=== PATIENT | female | born 1975 | race Caucasian/White ===

== ENCOUNTER 2016-04-11 14:37 | Inpatient (IN) | payer MEDICAID, OTHER ==
[~2016-04-11] VITALS: Ht 160 cm; Wt 74.5 kg
[~2016-04-11 14:37] MED LIST: LORA-407
[2016-04-11] MEDS ORDERED: AMOX1TAB10 PO (15:05)
[2016-04-11] MEDS ORDERED: OXYC-279 PO (15:07)
[2016-04-11] MEDS ORDERED: ALBUTEROL 0.5% (NEB) 2.5 MG/0.5 ML AMP INH STA (15:29)
[2016-04-11] MEDS ORDERED: SOD CHLORIDE 0.9% 500 ML IV STA (15:29)
[2016-04-11] MEDS ORDERED: IPRATROPIUM (NEB) 0.5 MG/2.5 ML AMP INH STA (15:29)
[2016-04-11] MEDS ORDERED: predniSONE 20 MG TAB PO ONE (15:30)
[2016-04-11 16:00] LABS: BASOPHILS % 0.5 % (0.0-2.0); EOSINOPHILS # 0.2 10^3/ul (0.0-0.5); EOSINOPHILS % 2.3 % (0.0-7.0); HEMATOCRIT 40.1 % (37.0-47.0); HEMOGLOBIN 13.6 g/dl (12.0-16.0); LYMPHOCYTES # 1.2 10^3/ul (0.8-2.9); LYMPHOCYTES % 17.9 % (15.0-51.0); MEAN CORPUSCULAR HEMOGLOBIN 30.7 pg (29.0-33.0); MEAN CORPUSCULAR HGB CONC 33.9 g/dl (32.0-37.0); MEAN CORPUSCULAR VOLUME 90.7 fl (82.0-101.0); MEAN PLATELET VOLUME 8.2 fl (7.4-10.4); MONOCYTE # 0.8 10^3/ul (0.3-0.9); NEUTROPHIL # 4.7 10^3/ul (1.6-7.5); NEUTROPHILS % 68.3 % (39.0-77.0); PLATELET COUNT 290 10^3/UL (140-440); RED BLOOD COUNT 4.42 10^6/ul (4.20-5.40); RED CELL DISTRIBUTION WIDTH 17.3 % (11.5-14.5); UNCORRECTED WBC 6.9 10^3/ul (4.8-10.8); WHITE BLOOD COUNT 6.9 10^3/ul (4.8-10.8)
[2016-04-11] MEDS ORDERED: LIDOCAINE 1% (MDV) 20 ML INJ SC ONE (16:00)
--- NOTE | 2016-04-11 16:04 | RADRPT ---
PROCEDURE: XR Chest. CLINICAL INDICATION: Abdominal pain. TECHNIQUE: AP view of the chest was obtained. COMPARISON: 03/11/2014 FINDINGS: The cardiomediastinal silhouette is within normal limits. There has been interval development of pat hola infiltrates involving the right lower lobe suggestive of pneumonia. There is linear infiltrates involving the left lower lobe, which are nonspecific. No signs of pleural fluid or pneumothorax are seen. The osseous structures and soft tissues are unremarkable. IMPRESSION: 1. Patchy infiltrates in the right lower lobe suggestive of pneumonia. 2. Linear infiltrates involving the left lower lobe which may be related to atelectasis versus pneu monia. RPTAT: DD .Ted Fitzgerald MD, Date Time Electronically viewed and signed by .Ted Fitzgerald MD, on 04/11/2016 16:03 .S/
[2016-04-11 16:07] LABS: ALBUMIN 4.5 g/dl (3.3-4.9)
[2016-04-11 16:08] LABS: CHLORIDE 98 mmol/L (97-110); CONDITION 1; INR 0.93; LH ANALYZER COMMENTS 1; POTASSIUM 4.3 mmol/L (3.5-5.1); PROTIME 12.5 Sec (12.2-14.2); SODIUM 140 mmol/L (135-144)
[2016-04-11 16:10] LABS: BILIRUBIN,INDIRECT 0.3 mg/dl (0-1.1); BILIRUBIN,TOTAL 0.3 mg/dl (0.2-1.3); CREATININE 0.73 mg/dl (0.44-1.00)
[2016-04-11 16:11] LABS: ALANINE AMINOTRANSFERASE 62 IU/L (13-69); ALBUMIN/GLOBULIN RATIO 1.09; ALKALINE PHOSPHATASE 160 IU/L (42-121); ANION GAP 19 (8-16); BLOOD UREA NITROGEN 14 mg/dl (7-20); CALCIUM 9.4 mg/dl (8.4-10.2); CARBON DIOXIDE 27 mmol/L (21-31); GLUCOSE 92 mg/dl (70-220); TOTAL PROTEIN 8.6 g/dl (6.1-8.1)
[2016-04-11 16:21] VITALS: TEMP 98.3
[2016-04-11 16:44] LABS: TROPONIN-I < 0.012 ng/ml (0.00-0.12)
[2016-04-11] MEDS ORDERED: LEVOFLOXACIN 750MG/D5W (PMX) 150 ML IVPB ONE (17:00)
[2016-04-11 17:03] LABS: ASPARTATE AMINO TRANSFERASE 65 IU/L (15-46)
--- NOTE | 2016-04-11 18:24 | ERA ---
ER Documentation Chief Complaint Date/Time DATE: 04/11/16 TIME: 18:17 Chief Complaint trouble breathing and wheezing for the past few days. chemo pt HPI 40-year-old woman presents with continued shortness of breath and wheezing. She has a history of metastatic breast cancer as well as asthma and she states she has been using her albuterol pump recently without relief. She was seen and evaluated at another nearby hospital about 3-4 days ago for the same symptoms and a CT angiogram of the chest was performed ruling out pulmonary embolism although a pleural effusion was noted. She has had no fevers or chills , no calf or leg swelling, no vomiting or diarrhea, no headache or blurry vision. ROS All systems reviewed and are negative except as per history of present illness. Medications Home Meds Reported Medications Oxycodone HCl/Acetaminophen (Percocet 5-325 mg Tablet) 1 Each Tablet, 1-2 TAB PO Q6 Y for PAIN, TAB 04/11/16 Amoxicillin/Potassium Clav (Amox-Clav 875-125 mg Tablet) 875-125 mg Tab, 1 TAB PO BID, #20 TAB started 04-09-16 for 7 days 04/11/16 Discontinued Reported Medications Loratadine (Claritin) 10 Mg Tablet 06/12/10 Allergies Allergies: Coded Allergies: No Known Allergy (Unverified , 04/11/16) PMhx/Soc Metastatic breast cancer post mastectomy History of Surgery: Yes (LEFT BREAST REMOVAL-CA) Anesthesia Reaction: No Hx 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 Disorder: No Hx Respiratory Disorders: Yes (ASTHMA) Hx Cardiac Disorders: No Hx Psychiatric Problems: No Hx Miscellaneous Medical Probl: No Hx Alcohol Use: No Hx Substance Use: No Hx Tobacco Use: No FmHx Family History: No diabetes Physical Exam Vitals Vital Signs Date Time Temp Pulse Resp B/P Pulse Ox O2 Delivery O2 Flow Rate FiO2 04/11/16 16:21 98.3 112 20 128/78 100 Room Air 04/11/16 15:50 Nasal Cannula 04/11/16 15:35 102 20 96 21 04/11/16 14:45 98.1 103 20 159/71 98 Physical Exam GENERAL: Well-developed, well-nourished, well-hydrated, in no apparent distress , looks nontoxic in appearance, afebrile HEENT: Moist mucous membranes, pink conjunctiva, no cervical spine tenderness or step-off deformities, no goiter, no jaundice or icterus, extraocular movements intact without pain. No submandibular induration, and no pharyngeal erythema NEURO: Alert and oriented 3, cranial nerves II through XII intact bilaterally, pupils equal round reactive to light, no focal deficits or facial asymmetry, sensation intact distally Strength 5/5 in upper and lower extremities bilaterally CARDIAC: Regular rate and rhythm, no murmurs rubs or gallops LUNGS: Poor entry bilaterally with bibasilar crackles and wheezing, no stridor ABDOMEN: Soft nontender, no guarding, no rigidity, no rebound, no psoas sign no obturator sign. Normoactive bowel sounds SKIN: Warm and dry to touch, chronic thickened erythematous skin to the anterior chest, no target lesions, and without ulcers EXTREMITIES: No clubbing cyanosis or edema, calves are bilaterally symmetrical, no Homans sign, no popliteal cord sign. Distal pulses equal and bilateral PSYCH: Normal affect without agitation or irritability Result Diagram: 04/11/16 1550 04/11/16 1550 Results 24 hrs Laboratory Tests Test 04/11/16 15:50 Alanine Aminotransferase (ALT/SGPT) 62IU/L Albumin 4.5g/dl Albumin/Globulin Ratio 1.09 Alkaline Phosphatase 160IU/L Anion Gap 19 Aspartate Amino Transf (AST/SGOT) 65IU/L Basophils # 0.010^3/ul Basophils % 0.5% Blood Morphology Comment Blood Urea Nitrogen 14mg/dl Calcium Level 9.4mg/dl Carbon Dioxide Level 27mmol/L Chloride Level 98mmol/L Creatinine 0.73mg/dl Direct Bilirubin 0.00mg/dl Eosinophils # 0.210^3/ul Eosinophils % 2.3% Globulin 4.10g/dl Glucose Level 92mg/dl Hematocrit 40.1% Hemoglobin 13.6g/dl INR International Normalized Ratio 0.93 Indirect Bilirubin 0.3mg/dl Lipase 95U/L Lymphocytes # 1.210^3/ul Lymphocytes % 17.9% Mean Corpuscular Hemoglobin 30.7pg Mean Corpuscular Hemoglobin Concent 33.9g/dl Mean Corpuscular Volume 90.7fl Mean Platelet Volume 8.2fl Monocytes # 0.810^3/ul Monocytes % 11.0% Neutrophils # 4.710^3/ul Neutrophils % 68.3% Nucleated Red Blood Cells # 0.010^3/ul Nucleated Red Blood Cells % 0.0/100WBC Platelet Count 73204^3/UL Potassium Level 4.3mmol/L Prothrombin Time 12.5Sec Prothrombin Time Ratio 1.0 Red Blood Count 4.4210^6/ul Red Cell Distribution Width 17.3% Sodium Level 140mmol/L Total Bilirubin 0.3mg/dl Total Protein 8.6g/dl Troponin I < 0.012ng/ml White Blood Count 6.910^3/ul Current Medications Medications (Trade) Dose Ordered Sig/Rosaline Route PRN Reason Start Time Stop Time Status Last Admin Dose Admin Sodium Chloride (NS) 500 ml @ 500 mls/hr Q1H STAT IV 04/11/16 15:29 04/11/16 17:32 DC 04/11/16 17:51 Albuterol (Proventil 0.5% (Neb)) 10 mg ONCE STAT INH 04/11/16 15:29 04/11/16 17:32 DC 04/11/16 15:35 Ipratropium [place] (Atrovent 0.02% (Neb)) 1 mg ONCE STAT INH 04/11/16 15:29 04/11/16 17:32 DC 04/11/16 15:35 Prednisone (Prednisone) 40 mg ONCE ONCE PO 04/11/16 15:30 04/11/16 17:32 DC 04/11/16 15:47 Lidocaine (Xylocaine 1% (Mdv) 20 ml) 20 ml ONCE ONCE SC 04/11/16 16:00 04/11/16 17:32 DC Procedures/MDM IV line was established patient was placed on mortgage loan specialist rhythm strip revealed a sinus rhythm at about 80 bpm with upright P and T waves. Patient was afebrile. I administered 500 cc of normal saline intravenously, prednisone 40 mg p.o., albuterol 10 mg via nebulizer, and ipratropium 1 mg via nebulizer. One view chest x-ray performed, read by me there is bilateral pleural effusions worse on the right compared to the left there may be a new infiltrate on the right EKG performed, read by me: 80 bpm, normal sinus rhythm, normal axis, no acute ST segment changes, narrow QRS complex, with good R-wave progression in precordial leads. CBC and electrolytes were unremarkable, liver function tests were normal, troponin was negative. I spoke to the patient's change management director oncologist Dr. Chau regarding the patient 's presentation and symptomatology. She would like to begin inpatient management and chemotherapy and given her recurrent shortness of breath recommended admission. Patient was admitted to the hospitalist. Departure Diagnosis: Primary Impression: Shortness of breath Additional Impressions: Asthma Qualified Code: J45.42 - Moderate persistent asthma with status asthmaticus Metastatic breast cancer Pleural effusion Condition: RAMIRO Mosley MD Apr 11, 2016 18:24
[2016-04-11] MEDS ORDERED: ZOLPIDEM 5 MG TAB PO PRN (18:30)
[2016-04-11] MEDS ORDERED: morphine 2 MG INJ IV PRN (18:30)
[2016-04-11] MEDS ORDERED: ACETAMINOPHEN 325 MG TAB PO PRN (18:30)
[2016-04-11] MEDS ORDERED: ONDANSETRON 4 MG INJ IV PRN (18:30)
[2016-04-11] MEDS ORDERED: DOCUSATE SODIUM 100 MG CAP PO PRN (18:30)
[2016-04-11] MEDS ORDERED: NACL 0.9% 3 ML SYG IV SCH (18:30)
--- NOTE | 2016-04-11 18:45 | HP ---
DATE OF ADMISSION: 04/11/2016 CHIEF COMPLAINT: Shortness of breath. HISTORY OF PRESENT ILLNESS: The patient is a 40-year-old female with a history of breast cancer on the left breast 7 years ago, she is status post mastectomy with chemo. The patient then developed b reast cancer on the right breast status post chemotherapy. The patient follows with Dr. Chau. She presents with 3 days of worsening shortness of breath. She denies any acute chest pain but states that she has very typical chest pain from her breast cancer. The patient also reports a history of asthma, has no other medical issues and has no other complaints at this time. PAST MEDICAL HISTORY: Breast cancer in both the left and right breasts, status post mastectomy in t he left breast as well as chemotherapy and chemotherapy for her right breast which was diagnosed 3 y ears ago. The patient follows with Dr. Chau. The patient reports no other surgeries. She also mcdonough s a history of asthma. HOME MEDICATIONS: Percocet. ALLERGIES: NO KNOWN DRUG ALLERGIES. FAMILY HISTORY: Denies any history of cancer or heart problems. SOCIAL HISTORY: Denies alcohol, tobacco, or drug abuse. REVIEW OF SYSTEMS: A 12-point review of systems negative except that in the HPI. PHYSICAL EXAMINATION: VITAL SIGNS: Temperature is 98.3, pulse 112, respiratory rate 20, blood pressure 128/78, saturation 100% on room air. GENERAL: No acute distress, alert and oriented. HEENT: Normocephalic, atraumatic. LUNGS: Clear to auscultation. CARDIOVASCULAR: Regular rate and rhythm. ABDOMEN: Nondistended, nontender, soft. EXTREMITIES: No clubbing, cyanosis, or edema. LABORATORIES: CBC within normal limits. Chemistry within normal limits except for AST slightly aj vated at 65, alkaline phosphatase 160. INR is 0.938. DIAGNOSTICS: Chest x-ray shows patchy infiltrates in the right lower lobe suggestive of pneumonia, linear infiltrates involving the left lower lobe which may be related to atelectasis versus pneumoni a. ASSESSMENT AND PLAN: 1. Acute respiratory distress secondary to pulmonary edema likely from underlying right-sided breas t cancer. Dr. Chau of oncology is aware. The patient will be getting a thoracentesis and will be started on chemotherapy. We will continue with supplemental oxygen. 2. Chronic obstructive pulmonary disease. We will treat with breathing treatments. 3. Prophylaxis: Lovenox. Dictated By: ESHA WILKINSON/NTS Conf#: [id number] DID#: [id number]
[2016-04-11 19:00] VITALS: BP 130/80; RESP 18
[2016-04-11 19:13] VITALS: BP 162/66; PULSE 117; RESP 24
--- NOTE | 2016-04-11 20:25 | RADRPT ---
PROCEDURE: XR Chest AP portable CLINICAL INDICATION: PICC line placement TECHNIQUE: An AP portable radiograph of the chest was submitted. COMPARISON: Study done earlier on the same date FINDINGS: Support Hardware: A right upper extremity PICC catheter has been placed since the previous study but the catheter is directed superiorly beyond the limits of the film within the right internal jugular vein and should be repositioned. Cardiovascular: The cardiovascular silhouette appears unremarkable. Lung Carrion: Streaky infiltrate or subsegmental atelectasis is again seen at the right lung base. A suboptimal inspiration again compresses lung parenchyma but there is slightly improved than with th e interstitial prominence extending from the perihilar regions. Pleural Spaces: No pneumothorax or pleural effusion is identified. Osseous Structures: The osseous structures appear intact. Soft Tissues: The soft tissues appear unremarkable. IMPRESSION: 1. Since the previous study, a right upper extremity PICC catheter is in place but the tip is direc gabby superiorly beyond the image within the right internal jugular vein and should be repositioned as soon as possible. 2. Subsegmental atelectasis or streaky infiltrate again seen at the right lung base with the more d iffuse interstitial infiltrates improved from the previous. Physician Dario Date Time Electronically viewed and signed by Physician Dario on 04/11/2016 20:25 RH/
--- NOTE | 2016-04-11 20:28 | RADRPT ---
PROCEDURE: XR Chest AP portable CLINICAL INDICATION: PICC line placement TECHNIQUE: An AP portable radiograph of the chest was submitted. COMPARISON: Comparison study done earlier on the same date FINDINGS: Support Hardware: The right upper extremity PICC catheter has been repositioned and the tip projects to the inferior vena cava. Cardiovascular: The heart size remains normal. Lung Carrion: Again a suboptimal inspiration compresses lung parenchyma giving the suggestion of wors ening bilateral infiltrates. Pleural Spaces: No pneumothorax or pleural effusion is identified. Osseous Structures: The osseous structures appear intact. Soft Tissues: The soft tissues appear unremarkable. IMPRESSION: 1. Repositioning the right upper extremity PICC catheter with the tip now appears to extend inferio rly into these inferior vena cava. 2. The heart size remains normal 3. Worsening pulmonary infiltrates. Physician Dario Date Time Electronically viewed and signed by Gold Frederick Physician on 04/11/2016 20:27 /
--- NOTE | 2016-04-11 20:30 | RADRPT ---
PROCEDURE: XR Chest AP portable CLINICAL INDICATION: PICC placement TECHNIQUE: An AP portable radiograph of the chest was submitted. COMPARISON: As stated earlier on the same date FINDINGS: Support Hardware: The right upper extremity PICC catheter has been withdrawn into the inferior aspec t of the right atrium. Cardiovascular: The heart size remains normal and the pulmonary vasculature is upper normal. Lung Carrion: Diffuse largely interstitial infiltrates are again evident and there diminish secondary to much more penetrated technique. Pleural Spaces: No pneumothorax or pleural effusion is identified. Osseous Structures: The osseous structures appear intact. Soft Tissues: The soft tissues appear unremarkable. IMPRESSION: 1. The right upper extremity PICC catheter has been withdrawn slightly with the tip now lying at th e inferior right atrium. 2. Persistent bilateral fairly diffuse interstitial infiltrates. Physician Dario Date Time Electronically viewed and signed by Gold Frederick Physician on 04/11/2016 20:29 /
--- NOTE | 2016-04-11 20:31 | RADRPT ---
PROCEDURE: XR Chest AP portable CLINICAL INDICATION: PICC line placement TECHNIQUE: An AP portable radiograph of the chest was submitted. COMPARISON: As stated earlier on the same date FINDINGS: Support Hardware: The right upper extremity PICC catheter remains malpositioned directed superiorly into the right jugular vein. Cardiovascular: The heart size remains normal. Lung Horton: Interstitial infiltrates are again seen through the lung horton with atelectatic change seen at the right lung base. Pleural Spaces: No pneumothorax or pleural effusion is identified. Osseous Structures: The osseous structures appear intact. Soft Tissues: Air distended colon is seen in the abdomen. IMPRESSION: 1. The right upper extremity PICC catheter tip remains malpositioned superiorly into the right jugu lar vein. 2. Persistent bilateral pulmonary interstitial infiltrates with subsegmental atelectasis again seen at the right lung base. Physician Dario Date Time Electronically viewed and signed by Physician Dario on 04/11/2016 20:31 /
--- NOTE | 2016-04-11 20:34 | RADRPT ---
PROCEDURE: US Chest Bilateral CLINICAL INDICATION: PICC line placement TECHNIQUE: 2 images were submitted during real time examination during PICC line placement. COMPARISON: None FINDINGS: Images were used as a guide during placement of PICC line. IMPRESSION: Real time sonography was used to aid in PICC line catheter placement. Physician Dario Date Time Electronically viewed and signed by Gold Frederick Physician on 04/11/2016 20:33 RH/
[2016-04-11 21:30] VITALS: Ht 160 cm; Wt 74.5 kg
--- NOTE | 2016-04-11 23:04 | RADRPT ---
PROCEDURE: US Chest. CLINICAL INDICATION: Shortness of breath. TECHNIQUE: Ultrasound of both sides of the chest was performed in the axial and sagittal planes. COMPARISON: Chest radiograph done earlier the same day FINDINGS: There is no pleural effusion on either side. IMPRESSION: 1. No pleural effusion on either side. RPTAT: QQ .Ranjith Reece MD, MD Date Time Electronically viewed and signed by .Ranjith Reece MD, MD on 04/11/2016 23:03 .R/
[2016-04-11 23:34] VITALS: BP 127/77; RESP 18
[2016-04-11 23:45] VITALS: BP 128/68; PULSE 99; RESP 20
[2016-04-12] MEDS: HYDROCODONE/APAP (5/325) TAB PO PRN ×2 (00:34→09:06)
[2016-04-12] MEDS: IPRATROPIUM (NEB) 0.5 MG/2.5 ML AMP HHN PRN ×4 (00:57→16:23)
[2016-04-12] MEDS: LEVALBUTEROL (NEB) 0.63 MG/3 ML AMP HHN PRN ×4 (00:57→16:23)
[2016-04-12 05:43] LABS: BASOPHILS % 0.1 % (0.0-2.0); HEMATOCRIT 36.9 % (37.0-47.0); HEMOGLOBIN 12.6 g/dl (12.0-16.0); LYMPHOCYTES # 0.8 10^3/ul (0.8-2.9); LYMPHOCYTES % 15.2 % (15.0-51.0); MEAN CORPUSCULAR HEMOGLOBIN 31.2 pg (29.0-33.0); MEAN CORPUSCULAR HGB CONC 34.1 g/dl (32.0-37.0); MEAN CORPUSCULAR VOLUME 91.5 fl (82.0-101.0); MEAN PLATELET VOLUME 8.9 fl (7.4-10.4); MONOCYTE # 0.4 10^3/ul (0.3-0.9); MONOCYTES % 7.1 % (0.0-11.0); NEUTROPHIL # 3.9 10^3/ul (1.6-7.5); NEUTROPHILS % 77.6 % (39.0-77.0); PLATELET COUNT 253 10^3/UL (140-440); RED BLOOD COUNT 4.03 10^6/ul (4.20-5.40); RED CELL DISTRIBUTION WIDTH 17.1 % (11.5-14.5)
[2016-04-12 06:14] LABS: CONDITION 1; LH ANALYZER COMMENTS 1
[2016-04-12 06:15] LABS: ALBUMIN 4.4 g/dl (3.3-4.9)
[2016-04-12 06:18] LABS: ALBUMIN/GLOBULIN RATIO 1.12; BILIRUBIN,INDIRECT 0.1 mg/dl (0-1.1); BILIRUBIN,TOTAL 0.1 mg/dl (0.2-1.3); CREATININE 0.7 mg/dl (0.44-1.00); TOTAL PROTEIN 8.3 g/dl (6.1-8.1)
[2016-04-12 06:19] LABS: CALCIUM 9.5 mg/dl (8.4-10.2); MAGNESIUM 1.9 mg/dl (1.7-2.5); PHOSPHORUS 5.4 mg/dl (2.5-4.9)
[2016-04-12 08:09] VITALS: BP 136/71; RESP 20
[2016-04-12] MEDS ORDERED: ENOXAPARIN 40 MG/0.4 ML SYG SC SCH (09:00)
--- NOTE | 2016-04-12 12:44 | PDOCDIS ---
Discharge Instructions CONDITION Patient Condition: Good HOME CARE INSTRUCTIONS: Diet Instructions: Regular ACTIVITY: Activity Restrictions: No Restrictions FOLLOW UP/APPOINTMENTS Appointments F/U WITH YOUR PCP AND ONCOLOGIST SCHEDULED ESHA BETTS Apr 12, 2016 12:44
[2016-04-12] MEDS ORDERED: ALBU8.5H3 INH (14:23)
--- NOTE | 2016-04-13 08:55 | DS ---
DATE OF ADMISSION: 04/11/2016 DATE OF DISCHARGE: 04/12/2016 DISCHARGE DIAGNOSES: 1. Acute respiratory distress secondary to pulmonary edema versus mild pneumonia, now stable. Cont inue with outpatient antibiotics. No effusions noted on ultrasound of the chest. 2. Chronic obstructive pulmonary disease with asthma, improved with breathing treatments. 3. Right-sided breast cancer. Follow up with Dr. Chau of oncology as scheduled this coming for further chemotherapy. HOSPITAL COURSE: The patient is a 40-year-old female with a history of breast cancer in left breast 30 years ago status post mastectomy and chemo. She then developed right-sided breast cancer severa l years ago. She follows up with Dr. Chau, and she is currently getting chemotherapy and she is sc heduled for chemotherapy on which is in 5 days. The patient presents with shortness of roro ath. She had chest x-ray that showed patchy infiltrates in the right lower lung suggestive of pneum onia and linear infiltrates in the left lower lung which may be related to atelectasis versus pneumo oriana. The patient had no signs of active sepsis, no white count, no significant fevers. She did hav e some tachycardia. There was concern that the patient may have pleural effusions from the underlyi ng breast cancer. She had an ultrasound of the chest that showed no pleural effusions on either lobito e. The patient was seen by Dr. Elder who was covering Dr. Chau, and it was agreed that the patie nt could be discharged and can follow up with Dr. Chau as scheduled to receive further chemotherapy . It was questioned whether the patient would need oxygen. The patient was ambulated around the [facility]. At room air, the pulse ox and O2 saturation were within normal limits, and there was no indica tion for any O2 upon discharge. On the date of discharge, the patient's vitals, labs, and physical exam were stable. She had no acute complaints. Her questions were answered. CONDITION ON DISCHARGE: Stable. DISPOSITION: To home. MEDICATIONS: The patient was given a new prescription for Albuterol 2 puffs inhaled q. 4 hours p.r. n. for shortness of breath. The patient will continue her other home medications. FOLLOWUP: The patient is to follow up with her PCP and oncologist as scheduled. Greater than 30 minutes was spent coordinating discharge of patient. Dictated By: ESHA BETTS MD BS/NTS Conf#: [id number] DID#: [id number]
--- NOTE | 2016-04-13 09:05 | CONS ---
DATE OF ADMISSION: 04/11/2016 DATE OF CONSULTATION: 04/12/[address] Siomara Morris, Thank you very much for giving me the privilege to see Ms. Luz who is a 40- year-old Burmese-speaking lady with regard to her recurrent breast cancer. This lady has very complicated breast cancer history in that she had a left mastectomy about 7 years ago and had adjuvant chemotherapy and radiation. She 2 years ago had recurrence in the right breast. She had multiple chemotherapies. It should be mentioned that her breast cancer was HER-2/arn positive and ER positive. She was seen a few months ago at [facility], and had investigational treatment but had no response. She was recently seen by her oncologist, Dr. Chau. She was planning to start her on chemotherapy with carboplatin and Gemzar next week. She came to the hospital yesterday because of shortness of breath. Her chest x-ray showed patchy infiltrate in the right lower base and also in the left lower base. She had ultrasound of the chest which did not show any fluid. It should be mentioned that on 04/06/2016, she went to [facility] Emergency Room for chest pain, and she had a CT angiogram at that time. Their impression was that she has lymphangitic spread into the lungs. PAST MEDICAL HISTORY: Please see the H and P. REVIEW OF SYSTEMS: Please see the H and P. PHYSICAL EXAMINATION: GENERAL: Shows a moderately-built female who is slightly overweight. She is alert, oriented, and afebrile. ENT: Normal. NECK: Supple without any abnormal masses CHEST: She is status post left mastectomy. Her right breast is fixed and is hard. She has an ulcerated lesion on the medial part of the left breast. She has no ancillary adenopathy. LUNGS: Decreased breath sounds in both bases, right more than left. HEART: Sounds are normal. ABDOMEN: Soft. EXTERNAL GENITALIA: Normal. EXTREMITIES: No edema, clubbing, or cyanosis. CENTRAL NERVOUS SYSTEM: No focal defects. LABORATORY DATA: Her CBC and CMP were unremarkable except for increased alkaline phosphatase of 137. IMPRESSION: 1. Carcinoma of the left breast 7 years ago status post mastectomy. 2. Recurrence in the right breast 2 years ago, status post multiple chemotherapies. 3. Recent episodes of shortness of breath and chest pain with a negative CT angiogram on 04/06/16 but showing possible lymphangitic spread into the lungs. PLAN AND DISCUSSION: This patient had a CT angiogram less than a week ago at [facility]. This is consistent with lymphangitic spread. The patient' s shortness of breath is better today. I discussed the options with her and her daughter. Her shortness of breath is better, and she would like to go home. I agree with that. She is going to be started on chemotherapy next week. Her prognosis is guarded since she has failed several chemotherapies. Dictated By: CRYSTAL ALMODOVAR MD PC/NTS Conf#: [id number] DID#: [id number] MTDD
== END 2016-04-12 17:52 | disposition home or self-care (01) | DRG 195 ==
LOC: E/R 14:37 → MS1 16:55
PROVIDERS: ADMIT Internal Medicine; ATTEND Internal Medicine
PROC: 02H633Z Insertion of Infusion Device into Right Atrium, Percutaneous Approach (ICD-10-PCS; principal; 2016-04-11)
DX: J18.9 Pneumonia, unspecified organism (principal); C50.911 Malignant neoplasm of unspecified site of right female breast; J44.9 Chronic obstructive pulmonary disease, unspecified; E66.3 Overweight; Z68.29 Body mass index [BMI] 29.0-29.9, adult; Z79.899 Other long term (current) drug therapy; Z17.0 Estrogen receptor positive status [ER+]; Z90.12 Acquired absence of left breast and nipple
CPT/HCPCS: 36569; 71010; 76604; 76937; 80053; 83036; 83690; 83735; 84100; 84484; 85025; 85610; 87040; 87081; 93005; 94640; 94644; 94664; C1769; J1650; J1956; J7040; J7512

== ENCOUNTER 2016-04-13 02:21 | Inpatient (IN) | payer OTHER ==
[2016-04-13] VITALS (11 sets, daily range): BP systolic 142–174; BP diastolic 77–101; PULSE 85–111; RESP 18–20; TEMP 98.2; Ht 160 cm; Wt 73.0 kg
[~2016-04-13] VITALS: Ht 160 cm; Wt 73.0 kg
[~2016-04-13 02:21] MED LIST changes: +ALBU8.5H3 INH; +AMOX1TAB10 PO; -LORA-407; +OXYC-279 PO
--- NOTE | 2016-04-13 04:02 | RADRPT ---
PROCEDURE: Chest. CLINICAL INDICATION: Shortness of breath. TECHNIQUE: PA and Lateral views of the chest were obtained. COMPARISON: 04/11/2016. FINDINGS: There is a right-sided PICC line extending to the SVC/RA junction. The cardiac silhouette is within normal limits. The aortic arch is unremarkable. There are hazy and patchy opacities bilaterally. T here is no pleural effusion. There is no pneumothorax. The osseous structures are grossly intact. IMPRESSION: Bilateral hazy and patchy opacities could represent pulmonary edema and/or multifocal pneumonia, unc hanged. Right-sided PICC line in place. .Jacinto Barnes MD, MD Date Time Electronically viewed and signed by .Jacinto Barnes MD, on 04/13/2016 04:01 .T/
[2016-04-13] MEDS ORDERED: IOHEXOL 100 ML ONE (04:19)
[2016-04-13] MEDS ORDERED: SOD CHLORIDE 0.9% 100 ML ONE (04:19)
[2016-04-13] MEDS ORDERED: HYDROmorphONE 1 MG/ML SYG IV STA (04:19)
[2016-04-13 04:28] LABS: BASOPHIL # 0.1 10^3/ul (0.0-0.1); BASOPHILS % 0.8 % (0.0-2.0); EOSINOPHILS # 0.2 10^3/ul (0.0-0.5); EOSINOPHILS % 2.9 % (0.0-7.0); HEMATOCRIT 36.9 % (37.0-47.0); HEMOGLOBIN 12.4 g/dl (12.0-16.0); LYMPHOCYTES # 1.2 10^3/ul (0.8-2.9); LYMPHOCYTES % 18.2 % (15.0-51.0); MEAN CORPUSCULAR HEMOGLOBIN 30.6 pg (29.0-33.0); MEAN CORPUSCULAR HGB CONC 33.5 g/dl (32.0-37.0); MEAN CORPUSCULAR VOLUME 91.3 fl (82.0-101.0); MEAN PLATELET VOLUME 7.9 fl (7.4-10.4); MONOCYTE # 0.8 10^3/ul (0.3-0.9); MONOCYTES % 11.1 % (0.0-11.0); NEUTROPHIL # 4.6 10^3/ul (1.6-7.5); PLATELET COUNT 242 10^3/UL (140-440); RED BLOOD COUNT 4.04 10^6/ul (4.20-5.40); RED CELL DISTRIBUTION WIDTH 17.2 % (11.5-14.5); UNCORRECTED WBC 6.8 10^3/ul (4.8-10.8); WHITE BLOOD COUNT 6.8 10^3/ul (4.8-10.8)
[2016-04-13 04:35] LABS: CHLORIDE 101 mmol/L (97-110); POTASSIUM 3.8 mmol/L (3.5-5.1); SODIUM 141 mmol/L (135-144)
[2016-04-13 04:38] LABS: ANION GAP 16 (8-16); BLOOD UREA NITROGEN 15 mg/dl (7-20); CARBON DIOXIDE 28 mmol/L (21-31); CREATININE 0.68 mg/dl (0.44-1.00)
[2016-04-13 04:39] LABS: CALCIUM 9.3 mg/dl (8.4-10.2); GLUCOSE 91 mg/dl (70-220)
[2016-04-13 04:45] LABS: CONDITION 1; LH ANALYZER COMMENTS 1
[2016-04-13 05:07] LABS: TROPONIN-I < 0.012 ng/ml (0.00-0.12)
--- NOTE | 2016-04-13 05:10 | ERA ---
ER Documentation Chief Complaint Date/Time DATE: 04/13/16 TIME: 05:10 Chief Complaint cough x 2 months, hx- CA breast w/mets to chest , takes chemo drugs HPI 40-year-old female with a history of breast cancer on the left breast 7 years ago status post mastectomy and chemo now with recurrent breast cancer on the right breast presenting with worsening dyspnea over 2 months. PAtient was discharged yesterday around 5pm after admission for similar symptoms. The patient follows with Dr. Chau. She states that she was feeling better on the supplemental O2 whil in the hospital, but once she was off the O2 prior to discharge, 1 hour later she started feeling SOB again. She denies any acute chest pain but states that she has very typical chest pain from her breast cancer. The patient also reports a history of asthma. She states that about 1 week ago she was at an outside hospital where she had a CTA chest and pulmonary embolism was ruled out but she was found to have a pleural effusion. No new symptoms of fever, worsening chest pain, dizziness or diaphoresis. ROS All systems reviewed and are negative except as per history of present illness. Medications Home Meds Active Scripts Albuterol Sulfate* (Proair HFA*) 8.5 Gm Hfa.aer.ad, 2 PUFF INH Q4 for SHORTNESS OF BREATH, #1 INHALER 1 Refill Prov:ESHA BETTS 04/12/16 Reported Medications Oxycodone HCl/Acetaminophen (Percocet 5-325 mg Tablet) 1 Each Tablet, 1-2 TAB PO Q6 Y for PAIN, TAB 04/11/16 Amoxicillin/Potassium Clav (Amox-Clav 875-125 mg Tablet) 875-125 mg Tab, 1 TAB PO BID, #20 TAB started 04-09-16 for 7 days 04/11/16 Discontinued Reported Medications Loratadine (Claritin) 10 Mg Tablet 06/12/10 Allergies Allergies: Coded Allergies: No Known Allergy (Unverified , 04/11/16) PMhx/Soc History of Surgery: Yes (Left breast mastectomy) Anesthesia Reaction: No Hx 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 Disorder: No Hx Respiratory Disorders: Yes (asthma) Hx Cardiac Disorders: No Hx Psychiatric Problems: No Hx Miscellaneous Medical Probl: Yes (breast CA, anemia) Hx Alcohol Use: No Hx Substance Use: No Hx Tobacco Use: No Smoking Status: Never smoker FmHx Family History: No diabetes Physical Exam Vitals Vital Signs Date Time Temp Pulse Resp B/P Pulse Ox O2 Delivery O2 Flow Rate FiO2 04/13/16 04:24 90 21 100 Nasal Cannula 2.0 04/13/16 02:28 97.8 116 20 183/117 96 Physical Exam Const: no apparent distress, nontoxic, speaks in short sentences Head: Atraumatic Eyes: Normal Conjunctiva ENT: Normal External Ears, Nose and Mouth. Neck: Full range of motion..~ No meningismus. Resp: Clear to auscultation bilaterally, no crackles, frequent dry coughing on exam Cardio: Regular rate and rhythm, no murmurs Abd: Soft, non tender, non distended. Normal bowel sounds Skin: No petechiae or rashes Back: No midline or flank tenderness Ext: No cyanosis, or edema. NO calf swelling or tenderness Neur: Awake and alert Psych: Normal Mood and Affect Result Diagram: 04/13/16 0419 04/13/16 0419 Results 24 hrs Laboratory Tests Test 04/13/16 04:19 Anion Gap 16 Basophils # 0.110^3/ul Basophils % 0.8% Blood Morphology Comment Blood Urea Nitrogen 15mg/dl Calcium Level 9.3mg/dl Carbon Dioxide Level 28mmol/L Chloride Level 101mmol/L Creatinine 0.68mg/dl Eosinophils # 0.210^3/ul Eosinophils % 2.9% Glucose Level 91mg/dl Hematocrit 36.9% Hemoglobin 12.4g/dl Lymphocytes # 1.210^3/ul Lymphocytes % 18.2% Mean Corpuscular Hemoglobin 30.6pg Mean Corpuscular Hemoglobin Concent 33.5g/dl Mean Corpuscular Volume 91.3fl Mean Platelet Volume 7.9fl Monocytes # 0.810^3/ul Monocytes % 11.1% Neutrophils # 4.610^3/ul Neutrophils % 67.0% Nucleated Red Blood Cells # 0.010^3/ul Nucleated Red Blood Cells % 0.0/100WBC Platelet Count 63723^3/UL Potassium Level 3.8mmol/L Red Blood Count 4.0410^6/ul Red Cell Distribution Width 17.2% Sodium Level 141mmol/L Troponin I < 0.012ng/ml White Blood Count 6.810^3/ul Current Medications Medications (Trade) Dose Ordered Sig/Rosaline Route PRN Reason Start Time Stop Time Status Last Admin Dose Admin Hydromorphone HCl (Dilaudid) 1 mg ONCE STAT IV 04/13/16 04:19 04/13/16 04:20 DC 04/13/16 04:24 IV Flush 10 ml 10 ml STK-MED ONCE .ROUTE 04/13/16 04:19 04/13/16 04:20 DC Sodium Chloride 100 ml @ ud STK-MED ONCE .ROUTE 04/13/16 04:19 04/13/16 04:20 DC Iohexol (Omnipaque) 100 ml @ ud STK-MED ONCE .ROUTE 04/13/16 04:19 04/13/16 04:20 DC Procedures/MDM EKG: NSR @96bpm, no acute ST/T changes, no evidence of acute ischemia CXR: Bilateral hazy and patchy opacities could represent pulmonary edema and/or multifocal pneumonia, unchanged from previous exam per radiology. Patient's symptoms are concerning for pulmonary embolism versus progression of symptoms secondary to mets from cancer. I have a lower suspicion for pneumonia of CHF. Vitals are notable for mild tachycardia, but she has no hypoxia and she is afebrile. There is no evidence of asthma exacerbation on exam. Patients symptoms improved with O2, but she was requesting a breathing treatment, as that helped her yesterday. The treatment was done and seemed to help slightly as well. I ordered a repeat CTPA but the patient was unable to tolerate the procedure as she had severe dyspnea laying flat. Labs were unremarkable as was EKG. However, given the patient's worsening symptoms, I do not believe she is stable for discharge home. I contacted the panel team for readmission for further workup. Admitting team: Dr. Aiken Departure Diagnosis: Primary Impression: Shortness of breath Condition: ADI Arellano MD Apr 13, 2016 05:10
[2016-04-13] MEDS ORDERED: ACETAMINOPHEN 325 MG TAB PO PRN (05:30)
[2016-04-13] MEDS ORDERED: ONDANSETRON 4 MG INJ IV PRN (05:30)
[2016-04-13] MEDS ORDERED: LEVALBUTEROL (NEB) 0.63 MG/3 ML AMP HHN ONE (06:00)
--- NOTE | 2016-04-13 07:02 | HP ---
Date/Time of Note Date/Time of Note DATE: 04/13/16 TIME: 06:51 Assessment/Plan VTE Prophylaxis VTE Prophylaxis Intervention: SCD's Lines/C[facility]ters [facility] Central line still needed: Yes Assessment/Plan Assessment/Plan 1. Persistent shortness of breath - multifactorial etiology: multifocal PNA, ?Pulmonary edema, asthma exacerbation or lung metastasis - Will obtain chest CT to eval for mets or if PNA is loculated - will also obtain 2D-echo to see if there is cardiac component to her SOB - Will place her on broad spectrum abx and will attempt to send sputum for gram stain and culture - Oxygen, steroid and PRN Bronchodilators 2. Breast cancer, with ?lung mets - will notify her Oncologist, Dr. Chau about pt's admission HPI/ROS Admit Date/Time Admit Date/Time Apr 13, 2016 at 05:13 Hx of Present Illness The patient is a 40-year-old female with a history of asthma and breast cancer on the left breast 7 years ago, she is status post mastectomy with chemo. The patient then developed breast cancer on the right breast with ?met to lungs, status post chemotherapy. The patient follows with Dr. Chau. She presents with shortness of breath. She was just discharged after being admitted 2 days ago for SOB. She was found to have PNA on CXR and was discharged with Augmentin and bronchodilator. When symptom, persists, she was brought back for eval. Repeat CXR showed multifocal PNA/pulm edema, unchanged from CXR 2 days ago. Ozsat on iniial presentation was 96%RA and 100% on 2L. Basic labs are WNL. . PMH/Family/Social Social History Smoking Status: Never smoker Exam/Review of Systems Vital Signs Vitals Vital Signs Date Time Temp Pulse Resp B/P Pulse Ox O2 Delivery O2 Flow Rate FiO2 04/13/16 06:33 92 04/13/16 06:28 98.2 20 147/80 100 Nasal Cannula 2.0 04/13/16 05:40 33 Labs Result Diagram: 04/13/16 0419 04/13/16 0419 VERONICA ALLEN MD Apr 13, 2016 07:02
[2016-04-13] MEDS ORDERED: LEVALBUTEROL (NEB) 0.63 MG/3 ML AMP HHN PRN (07:30)
[2016-04-13] MEDS ORDERED: VANCOMYCIN IV PER PHARMACY XX SCH (07:30)
[2016-04-13] MEDS ORDERED: IPRATROPIUM (NEB) 0.5 MG/2.5 ML AMP HHN PRN (07:30)
[2016-04-13] MEDS ORDERED: VANCOMYCIN 1.5 GM in SOD CHLORIDE 0.9% 250 ML IVPB SCH (10:00)
[2016-04-13] MEDS: CEFEPIME 1GM/50 ML (PMX) 50 ML IVPB SCH ×2 (10:04→20:37)
[2016-04-13] MEDS: METHYLPREDNISOLONE 40 MG INJ IV SCH ×2 (10:04→20:37)
[2016-04-13] MEDS ORDERED: ALBUTEROL/IPRATROPIUM (NEB) 3 ML AMP HHN PRN (15:30)
[2016-04-13] MEDS: morphine 2 MG INJ IV PRN ×2 (16:00→16:59)
[2016-04-13] MEDS: VANCOMYCIN 1 GM in NS 250 ML IVPB SCH (21:49)
[2016-04-13] MEDS: ZOLPIDEM 5 MG TAB PO PRN (21:49)
[2016-04-14] VITALS (10 sets, daily range): BP systolic 162–178; BP diastolic 84–98; PULSE 91–108; RESP 19–20
[2016-04-14] MEDS ORDERED: LORAZEPAM 2 MG INJ IV ONE (09:00)
[2016-04-14] MEDS: METHYLPREDNISOLONE 40 MG INJ IV SCH ×2 (09:39→20:55)
[2016-04-14] MEDS: morphine 2 MG INJ IV PRN (09:39)
[2016-04-14] MEDS: CEFEPIME 1GM/50 ML (PMX) 50 ML IVPB SCH ×2 (09:39→20:56)
[2016-04-14] MEDS: VANCOMYCIN 1 GM in NS 250 ML IVPB SCH ×2 (11:57→23:05)
[2016-04-14] MEDS ORDERED: SOD CHLORIDE 0.9% 100 ML ONE (12:53)
[2016-04-14] MEDS ORDERED: IOHEXOL 100 ML ONE (12:53)
[2016-04-14] MEDS ORDERED: IOHEXOL 350MG/ML 50 ML BTL ONE (12:54)
--- NOTE | 2016-04-14 14:33 | RADRPT ---
PROCEDURE: CT Pulmonary Angiogram CLINICAL INDICATION: Short of breath TECHNIQUE: Volumetric acquisition of the thorax was performed following the intravenous administra tion of contrast with the bolus of contrast time to maximize pulmonary artery opacification. One or more of the following dose reduction techniques were used: - Automated exposure control. - Adjustment of the mA and/or kV according to patient size. - Use of iterative reconstruction technique. Radiation Dose: CTDI = 37.13 mGy; DLP = 528.95 mGy-cm. COMPARISON: None. FINDINGS: Pulmonary Arteries: There is no intrinsic filling defect seen within the pulmonary arteries to sugge st pulmonary embolization. Other cardiovascular structures: The heart is mildly enlarged and there is no pericardial effusion. Aorta appears intact and is normal in caliber. Lung horton: There is a focal alveolar infiltrate within the left upper lobe. Streaky infiltrate or atelectatic changes seen at both lung bases. There is soft tissue density seen to extend along the bronchi in the hilar regions considerably greater on the right than the left. This is most extensiv e within the right middle lobe and right lower lobe or the soft tissue density extends quite periphe rally. A 5 mm noncalcified nodule is seen within the anterior segment of the right upper lobe along with several smaller nodules on the order of 2-3 mm. A 5 mm nodule is seen adjacent to the major f issure and the right middle lobe. Several nodules are seen within the right lower lobe up to 7.4 mm in diameter. A 7.6 mm nodule is seen within the posterior left lower lobe. The pleural spaces: No effusion or pneumothorax is identified. Lymph nodes: There is soft tissue fullness in the subcarinal region measuring approximately 1.4 cm i n short diameter compatible with adenopathy. Several right axillary nodes up to 1.3 cm in short dante meter are identified. Thyroid: Unremarkable. Superior abdominal structures: The liver is enlarged but no focal lesion is identified. Pleural Osseous structures: The osseous elements appear intact with mild diffuse anterior spondylosis seen t o the spine. Soft tissues: The left breast shadow is absent and surgical kerry are seen in the left axilla. Th ere is extensive skin thickening involving the right breast with nodular areas within the breast for which neoplasm cannot be excluded. There is a 1.6 cm nodule at the medial aspect of the breast in the right anterior chest wall and there is a 1.5 cm soft tissue density anterior to the sternum. IMPRESSION: 1. There is no evidence of pulmonary embolization. The heart is mildly enlarged and the aorta appe ars normal in caliber and intact. 2. There is soft tissue density extending through the hilar regions considerably more extensive on the right extending far peripherally into the right middle lobe and right lower lobe associated with atelectatic change. Neoplastic etiology cannot be excluded. Multiple noncalcified bilateral pulmo nary nodules are evident raising the possibility of pulmonary metastasis. There is a nodular infilt rate within the left upper lobe and streaky infiltrate or discoid atelectasis is seen at the lung ba ses. No effusion or pneumothorax is evident. 3. Soft tissue fullness in the subcarinal region neural measured 1.4 cm in short diameter. There a re several right axillary nodes up to 1.3 cm in short diameter. 4. Status post left mastectomy with surgical kerry seen in the left axilla. Nodular densities ar e seen within the right breast and there is considerable skin thickening. Neoplastic involvement ca nnot be excluded. There are nodules within the medial right breast/anterior chest wall for which ne oplastic involvement cannot be excluded. 5. Hepatomegaly with no focal lesion but with diffuse fatty infiltration. 6. No osseous destruction is evident but mild degenerative spine changes are noted. Physician Dario Date Time Electronically viewed and signed by Physician Dario on 04/14/2016 14:33 RH/
--- NOTE | 2016-04-14 14:43 | CONS ---
Date/Time of Note Date/Time of Note DATE: 04/14/16 TIME: 14:29 Assessment/Plan Assessment/Plan Chief Complaint/Hosp Course 40yo female with ER+/RI+/HER 2+ metastatic breast cancer involving her chest wall and lungs. Pt has progressed through multiple lines of chemotherapy including Taxotere, Cytoxan, Xeloda, Lapatanib and Kadcyla. I had a long discussion with her treating oncologist at [facility] who recommended to start the patient on Gemzar/ Carboplatin in combination with Herceptin as she still has Her2+ disease. Pt presents with worsening SOB which is likely secondary to lymphangitic spread of her cancer through her lungs -will start Gemzar/ Carbo/ Herceptin. 1st dose planned for tomorrow -f/u CTA to ensure pt does not have a PE. It patient has a pleural effusion will decide on if we can perform a thoracentesis -cont antibiotics in case of underlying infection -will need to order home O2 as patient is not able to breath without oxygen and desaturates - as stated before her prognosis is guarded since she has failed several chemotherapies. Approximately 40 min were spent at patient's bedside and in coordination of her care Problems: Consultation Date/Type/Reason Admit Date/Time Apr 13, 2016 at 05:13 Date of Consultation: Apr 14, 2016 Type of Consultation: oncology Reason for Consultation metastatic her 2 + breast cancer Referring Provider: LAUREN AMES VECTOR CONTROL ASSISTANT Hx of Present Illness 40-year-old Slovenian-speaking lady who was first diagnosed with ER+/RI+/Her2+ breast cancer 7 years ago. She received chemotherpay/ L MRM/ radiation. 2 years ago, she recurred in the right breast . She was started on Pertuzumab/ Taxotere / Herceptin but unfortunately progressed. She was then placed on Kadcyla through which she also progressed. She was then sent to partake in a clinical trial and [facility]. She has now progressed though Lapatanib, Cytoxan and Xeloda. Pt has had worsening SOB. A recent CTA was done an [facility] which demonstrated pulmonary mets and a pleural effusion but no evidence of pulmonary emboli. She was just seen at [facility] for SOB and was discharged but again was not able to breath at home hence her repeat admission. She has since been started on antibiotics and is breathing better an a nasal cannula. Of note patient has a diagnoses of Asthma which is thought to also be contributing to her symptoms. Constitutional: poor po, requiring O2 Eyes: no complaints ENT: no complaints Respiratory: cough, pleuritic pain, shortness of breath Cardiovascular: palpitations Gastrointestinal: no complaints Genitourinary: no complaints Musculoskeletal: bone/joint pain Skin: skin lesions Psychological: anxiety, depression Past Medical History breast cancer , Her 2+ and metastatic asthma Past Surgical History s/p L MRM Family History Significant Family History: no pertinent family hx Social History Alcohol Use: none Smoking Status: Never smoker Drug Use: none Exam/Review of Systems Vital Signs Vitals Vital Signs Date Time Temp Pulse Resp B/P Pulse Ox O2 Delivery O2 Flow Rate FiO2 04/14/16 11:33 97.9 89 20 173/94 97 04/14/16 08:00 Nasal Cannula 2.0 04/13/16 05:40 33 Intake and Output 04/13/16 04/13/16 04/14/16 15:00 23:00 07:00 Intake Total 500 ml 700 ml Balance 500 ml 700 ml Exam Constitutional: alert, distress, oriented Psych: depression Head: normocephalic Eyes: nl conjunctiva Neck: other (right post occipial hard LN) Respiratory: crackles/rales, diminished breath sounds, intercostal retraction, labored breathing Cardiovascular: other (tachycardic) Musculoskeletal: nl extremities to inspection Skin: other (carinomatosis of chest wall with necrotic hard lesions over the right breast) Results Result Diagram: 04/13/169 04/13/169 Medications Medications Current Medications Methylprednisolone Sodium Succinate 40 mg 40 mg Q12 IV Last administered on 09:39; Admin Dose 40 MG; Start 04/13/16 at 09:00 Cefepime HCl 50 ml @ 100 mls/hr Q12 IVPB Last administered on 04/14/16 09:39 ; Admin Dose 100 MLS/HR; Start 04/13/16 at 09:00 Vancomycin HCl (Vancocin) 250 ml @ 125 mls/hr Q12H IVPB Last administered on 11:57; Admin Dose 125 MLS/HR; Start 04/13/16 at 22:00 Morphine Sulfate (morphine) 2 mg Q3H PRN IV PAIN Last administered on 09:39; Admin Dose 2 MG; Start 04/13/16 at 15:30 Miscellaneous Information (*Rx Drug Level Order Reminder*) VANCOMYCIN TROUGH AT 2100 ONCE ONCE XX ; Start 04/14/16 at 21:00; Stop 04/14/16 at 21:01 LUIS FELIPE ALCANTAR M.D. Apr 14, 2016 14:43
[2016-04-14] MEDS ORDERED: LEVALBUTEROL (NEB) 0.63 MG/3 ML AMP HHN PRN (15:00)
--- NOTE | 2016-04-14 15:59 | PN ---
DATE: 04/14/2016 TIME OF EVALUATION: 1500. SUBJECTIVE DATA: Complains of severe respiratory distress. Denies any chest pain. OBJECTIVE DATA: VITAL SIGNS: Temperature 97.9, pulse rate 87, respiratory rate 20, blood pressure 173/94, oxygen saturation 97% on low flow O2. GENERAL: This is a well-built, well-nourished female lying in bed in mild to moderate respiratory distress. HEENT: Head normocephalic and atraumatic. Eyes: Anicteric sclerae. Conjunctivae clear. ENT: Nasal septum is midline. Oral mucosa is dry. NECK: Supple. No JVD noticed. RESPIRATORY: Bilaterally diminished breath sounds. Use of accessory muscles of respiration. CARDIAC: Regular rate and rhythm. Sinus tachycardia. ABDOMEN: Soft, nontender and nondistended. Bowel sounds positive in all 4 quadrants. GENITOURINARY: Deferred. EXTREMITIES: No cyanosis, no clubbing. Bilateral lower extremity 1+ pitting edema. Peripheral pulses are palpable. NEUROLOGIC: The patient is awake, alert and oriented. Cranial nerves are grossly intact. LABORATORY AND DIAGNOSTIC DATA: WBC 6.8, hemoglobin 12.4, hematocrit 36.9, platelet count 242. Sodium 141, potassium 3.8, chloride 101, carbon dioxide 28 , anion gap 16, BUN 15, creatinine 0.62, glucose 90, calcium 9.3. Troponin less than 0.012. CT angiogram of the chest: No evidence of pulmonary embolism. There is a soft tissue density extending through the hilar regions considerably more extensive on the right extending far up peripherally into the right middle lobe and right lower lobe associated atelectatic changes. Neoplastic etiology cannot be excluded. Multiple noncalcified bilateral pulmonary nodules are evident raising the possibility of pulmonary metastasis. There is nodular infiltrate within the left upper lobe and streaky infiltrate with discoid atelectasis seen at the lung bases. No effusion or pneumothorax is evident. Soft tissue fullness in the subcarinal region measuring 1.4 cm in short diameter. There are several right axillary nodes up to 1.3 cm in short diameter. Hepatomegaly with no focal lesion but with diffuse fatty infiltration. ASSESSMENT AND PLAN: 1. Acute respiratory failure. Hypoxic. Etiology could be from multifocal pneumonia versus underlying metastatic disease. Continue inhaled bronchodilators. Continue IV steroids. Pulmonary evaluation ordered. 2. Metastatic breast cancer involving chest wall and lungs. The patient being followed by oncology. The patient undergoing chemotherapy. 3. Essential hypertension. Start the patient on routine antihypertensives. Will also start the patient on p.r.n. antihypertensives for any systolic blood pressure readings greater than 160 mmHg. 4. Fluid, electrolytes and nutrition. The patient will be continued on a regular diet. 5. Deep venous thrombosis prophylaxis, subcutaneous Lovenox. 6. Gastrointestinal prophylaxis with histamine 2 receptor blockers. 7. Plan. Continue oncology recommendations. Await pulmonary input. Case discussed with Dr. Haines. The plan of care was explained to the patient's family who was at the bedside. LAUREN HAINES MD, AM/TL Conf#: [id number] DID#: [id number] MTDD
--- NOTE | 2016-04-14 18:00 | CONS ---
DATE OF ADMISSION: 04/13/2016 DATE OF CONSULTATION: 04/14/2016 TYPE OF CONSULTATION: Pulmonary. REASON FOR CONSULT: Shortness of breath. Thank you, Dr. Aiken, for this consultation. HISTORY OF PRESENT ILLNESS: This is an unfortunate 40-year-old lady with history of metastatic tony st cancer with mets to the chest and lung parenchyma, recently discharged from [facility], currently underg oing chemotherapy with a CT scan suggestive of pulmonary mets, possible lymphangitic spread. PAST MEDICAL HISTORY: 1. Metastatic breast cancer. 2. History of asthma. MEDICATIONS: Per chart. ALLERGIES: NONE. SOCIAL HISTORY: Nonsmoker, no alcohol, no history of drug use. FAMILY HISTORY: Noncontributory. SYSTEMS REVIEW: A 12-point review of systems unable to perform. PHYSICAL EXAMINATION: GENERAL: Well-nourished, well-developed lady, comfortable at rest, no acute distress. VITAL SIGNS: Currently afebrile, pulse is 89, blood pressure 170/94, O2 saturation 96% on FIO2 of 2 liters. NECK: Supple. No JVD or lymphadenopathy. CARDIAC: S1, S2, no added sounds or murmurs. CHEST: Diminished air entry bilaterally. ABDOMEN: Soft, nontender. No guarding or rebound. EXTREMITIES: No cyanosis, clubbing, or edema. NEUROLOGIC: Generalized weakness, but no focal deficits. LABORATORY DATA: White count 6.8, hemoglobin 12.4, platelets of 242. Chemistry within normal limit s. DIAGNOSTIC DATA: CT chest, no evidence of pulmonary embolism, bilateral dense infiltrates. IMPRESSION AND PLAN: 1. 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 2. Hypoxemia secondary to above. Patient will require: 1. Continued heme/oncology recommendations. 2. Continue steroids for possible lymphangitic spread. 3. Diuretics if indicated. 4. Supplemental O2 prior to discharge. Dictated By: TANYA PHAN/TL Conf#: [id number] DID#: [id number]
[2016-04-14] MEDS: LEVALBUTEROL (NEB) 0.63 MG/3 ML AMP HHN SCH (19:53)
[2016-04-14] MEDS: FAMOTIDINE 20 MG TAB PO SCH (20:56)
[2016-04-14] MEDS: NIFEdipine (XL) 30 MG TAB PO SCH (20:56)
[2016-04-14] MEDS: ZOLPIDEM 5 MG TAB PO PRN (21:00)
--- NOTE | 2016-04-14 22:38 | RADRPT ---
Echocardiogram Report Patient Name: MARGARET VIGIL Gender: Female Date: 1975 Study Date: 14-Apr-2016 Scene Painter: Refugio Am[facility]al [facility] Location: [id number] Ref. Physician: VERONICA ALLEN Quality: Good Procedures: Transthoracic echocardiogram with complete 2D, M-Mode, and doppler examination. Indications: Shortness of breath. 2D/M Mode Doppler Measurement Value Normal Ranges Measurement Value Normal Ranges LVIDd 2D 5.6 3.5 - 5.6 cm AV Peak Az 1.7 m/sec LVIDs 2D 4.3 2.1 - 4.1 cm AV Peak PG 12.1 mmHg LVPWd 2D 0.8 0.6 - 1.1 cm LVOT Peak Az 1.1 m/sec IVSd 2D 0.5 0.6 - 1.1 cm LVOT Peak PG 4.7 mmHg AoR Diam 2D 2.9 2.0 - 3.7 cm MV E Peak Az 0.9 m/sec EDV 2D 150.9 cm3 MV A Peak Az 0.7 m/sec ESV 2D 77.9 cm3 MV E/A 1.2 LA Dimen 2D 3.8 2.3 - 4.0 cm MV Decel Time [address] [facility] 6 MV E/A 1.2 TR Peak Az 2.2 m/sec TR Peak PG 19.9 mmHg RVSP 22.0 mmHg Findings Left Ventricle: Normal left ventricular systolic function. Normal left ventricular cavity size. Normal left ventricular wall thickness. Ejection fraction is visually estimated at 65 %. Right Ventricle: Normal right ventricular size. Normal right ventricular systolic function. Left Atrium: The left atrium is normal in size. Right Atrium: The right atrium is normal in size. Mitral Valve: Normal appearance and function of the mitral valve with trace physiologic regurgitation. Aortic Valve: Normal appearance of the aortic valve. No significant aortic stenosis or insufficiency. Tricuspid Valve: Normal appearance and function of the tricuspid valve with trace physiologic regurgitation. Estimated peak PA systolic pressure 22 mmHg. Pericardium: Normal pericardium with no significant pericardial effusion. Aorta: Normal aortic root. IVC: Normal size and normal respiratory collapse consistent with normal right atrial pressure. Conclusions Normal left ventricular systolic function. Normal left ventricular cavity size. Normal left ventricular wall thickness. Ejection fraction is visually estimated at 65 %. Normal right ventricular size. Normal right ventricular systolic function. The left atrium is normal in size. The right atrium is normal in size. No significant valvular stenosis or regurgitation seen. Normal pericardium with no significant pericardial effusion. Electronically Signed By: Zelalem Olson 14-Apr-2016 22:37:47 -0800 Patient Name: MARGARET VIGIL Study Date: 14-Apr-2016 [id number]
[2016-04-15] VITALS (10 sets, daily range): BP systolic 135–169; BP diastolic 75–90; PULSE 94–126; RESP 16–19
[2016-04-15] MEDS: LEVALBUTEROL (NEB) 0.63 MG/3 ML AMP HHN SCH ×4 (01:03→20:44)
[2016-04-15 06:41] LABS: BASOPHILS % 0.2 % (0.0-2.0); HEMATOCRIT 34.3 % (37.0-47.0); HEMOGLOBIN 11.7 g/dl (12.0-16.0); LYMPHOCYTES # 0.8 10^3/ul (0.8-2.9); LYMPHOCYTES % 10.2 % (15.0-51.0); MEAN CORPUSCULAR HEMOGLOBIN 31.2 pg (29.0-33.0); MEAN CORPUSCULAR HGB CONC 34.2 g/dl (32.0-37.0); MEAN CORPUSCULAR VOLUME 91.3 fl (82.0-101.0); MEAN PLATELET VOLUME 8.6 fl (7.4-10.4); MONOCYTE # 0.4 10^3/ul (0.3-0.9); MONOCYTES % 4.6 % (0.0-11.0); PLATELET COUNT 234 10^3/UL (140-440); RED BLOOD COUNT 3.76 10^6/ul (4.20-5.40); RED CELL DISTRIBUTION WIDTH 16.8 % (11.5-14.5); UNCORRECTED WBC 8.3 10^3/ul (4.8-10.8); WHITE BLOOD COUNT 8.3 10^3/ul (4.8-10.8)
[2016-04-15 06:46] LABS: PHOSPHORUS 5.5 mg/dl (2.5-4.9)
[2016-04-15 06:58] LABS: POTASSIUM 4.2 mmol/L (3.5-5.1)
[2016-04-15 07:00] LABS: CREATININE 0.54 mg/dl (0.44-1.00)
[2016-04-15 07:07] LABS: CONDITION 1; LH ANALYZER COMMENTS 1
[2016-04-15] MEDS: CEFEPIME 1GM/50 ML (PMX) 50 ML IVPB SCH ×2 (08:47→21:41)
[2016-04-15] MEDS: METHYLPREDNISOLONE 40 MG INJ IV SCH ×2 (08:47→21:41)
[2016-04-15] MEDS: IBUPROFEN 600 MG TAB PO SCH ×3 (08:48→18:13)
[2016-04-15] MEDS: FAMOTIDINE 20 MG TAB PO SCH ×2 (08:48→21:41)
[2016-04-15] MEDS: NIFEdipine (XL) 30 MG TAB PO SCH ×2 (08:49→21:00)
[2016-04-15] MEDS: ENOXAPARIN 40 MG/0.4 ML SYG SC SCH (09:16)
[2016-04-15] MEDS: traMADol 50 MG TAB PO PRN ×2 (09:56→16:49)
[2016-04-15] MEDS ORDERED: ONDANSETRON 4 MG INJ IV PRN (10:30)
[2016-04-15] MEDS ORDERED: morphine 2 MG INJ IV PRN (10:30)
[2016-04-15] MEDS: VANCOMYCIN 1 GM in NS 250 ML IVPB SCH ×2 (10:42→22:36)
--- NOTE | 2016-04-15 11:22 | PN ---
Date/Time of Note Date/Time of Note DATE: 04/15/16 TIME: 11:22 Assessment/Plan VTE Prophylaxis VTE Prophylaxis Intervention: LMWH Lines/Catheters IV Catheter Type (from [facility]): PICC Line Central line still needed: Yes Urinary Cath still in place: No Assessment/Plan Chief Complaint/Hosp Course 1. Acute respiratory failure. Hypoxic. Etiology could be from multifocal pneumonia versus underlying metastatic disease. Continue inhaled bronchodilators. Continue IV steroids. Pulmonary following. 2. Metastatic breast cancer involving chest wall and lungs. The patient being followed by oncology. The patient undergoing chemotherapy. 3. Essential hypertension. Continue routine antihypertensives and p.r.n. antihypertensives for any systolic blood pressure readings greater than 160 mmHg. 4. Fluid, electrolytes and nutrition. The patient will be continued on a regular diet. 5. Deep venous thrombosis prophylaxis, subcutaneous Lovenox. 6. Gastrointestinal prophylaxis with histamine 2 receptor blockers. 7. Plan. Continue oncology recommendations. Continue supplemental oxygen and inhaled bronchodilators. The patient will be moved to medical surgical floor today. Case discussed with Dr. Atkins. Problems: Subjective 24 Hr Interval Summary Free Text/Dictation "Feeling better." Exam/Review of Systems Vital Signs Vitals Vital Signs Date Time Temp Pulse Resp B/P Pulse Ox O2 Delivery O2 Flow Rate FiO2 04/15/16 09:21 Nasal Cannula 2.0 04/15/16 08:48 126 04/15/16 07:46 98.6 16 147/77 96 04/14/16 19:54 21 Intake and Output 04/14/16 04/14/16 04/15/16 15:00 23:00 07:00 Intake Total 800 ml 700 ml Balance 800 ml 700 ml Exam GENERAL: This is a well-built, well-nourished female lying in bed not in any apparent distress. HEENT: Head normocephalic and atraumatic. Eyes: Anicteric sclerae. Conjunctivae clear. ENT: Nasal septum is midline. Oral mucosa is dry. NECK: Supple. No JVD noticed. RESPIRATORY: Bilaterally diminished breath sounds. No use of accessory muscles of respiration. CARDIAC: Regular rate and rhythm. Sinus tachycardia. ABDOMEN: Soft, nontender and nondistended. Bowel sounds positive in all 4 quadrants. GENITOURINARY: Deferred. EXTREMITIES: No cyanosis, no clubbing. Bilateral lower extremity 1+ pitting edema. Peripheral pulses are palpable. NEUROLOGIC: The patient is awake, alert and oriented. Cranial nerves are grossly intact. Results Result Diagram: 04/15/16 0530 04/15/16 0530 Results 24 hrs Laboratory Tests Test 04/14/16 21:18 04/15/16 05:30 Vancomycin Level Trough 17.3 Anion Gap 19 H Basophils # 0.0 Basophils % 0.2 Blood Morphology Comment Blood Urea Nitrogen 13 Calcium Level 9.0 Carbon Dioxide Level 28 Chloride Level 100 Creatinine 0.54 Eosinophils # 0.0 Eosinophils % 0.0 Glucose Level 122 Hematocrit 34.3 L Hemoglobin 11.7 L Lymphocytes # 0.8 Lymphocytes % 10.2 L Magnesium Level 2.0 Mean Corpuscular Hemoglobin 31.2 Mean Corpuscular Hemoglobin Concent 34.2 Mean Corpuscular Volume 91.3 Mean Platelet Volume 8.6 Monocytes # 0.4 Monocytes % 4.6 Neutrophils # 7.0 Neutrophils % 85.0 H Nucleated Red Blood Cells # 0.0 Nucleated Red Blood Cells % 0.0 Phosphorus Level 5.5 H Platelet Count 234 Potassium Level 4.2 Red Blood Count 3.76 L Red Cell Distribution Width 16.8 H Sodium Level 143 White Blood Count 8.3 # Medications Medications Current Medications Methylprednisolone Sodium Succinate 40 mg 40 mg Q12 IV Last administered on 08:47; Admin Dose 40 MG; Start 04/13/16 at 09:00 Cefepime HCl 50 ml @ 100 mls/hr Q12 IVPB Last administered on 04/15/16 08:47 ; Admin Dose 100 MLS/HR; Start 04/13/16 at 09:00 Vancomycin HCl (Vancocin) 250 ml @ 125 mls/hr Q12H IVPB Last administered on 10:42; Admin Dose 125 MLS/HR; Start 04/13/16 at 22:00 Hydralazine HCl (Apresoline) 10 mg Q6H PRN IV SbP>160; Start 04/14/16 at 15:30 Nifedipine (Procardia Xl) 30 mg BID PO Last administered on 04/15/16 08:49; Admin Dose 30 MG; Start 04/14/16 at 21:00 Famotidine (Pepcid) 20 mg BID PO Last administered on 04/15/16 08:48; Admin Dose 20 MG; Start 04/14/16 at 21:00 Enoxaparin Sodium (Lovenox) 40 mg DAILY SC Last administered on 04/15/16 09:16 ; Admin Dose 40 MG; Start 04/15/16 at 09:00 Ibuprofen (Motrin) 600 mg Q6 PO Last administered on 04/15/16 08:48; Admin Dose 600 MG; Start 04/15/16 at 09:00 Tramadol HCl (Ultram) 100 mg Q6H PRN PO PAIN LEVEL 1-3 OR FEVER Last administered on 04/15/16 09:56; Admin Dose 100 MG; Start 04/15/16 at 08:30 Morphine Sulfate (morphine) 2 mg Q3H PRN IV PAIN LEVEL 7-10; Start 04/15/16 at 10:30 Ondansetron HCl (Zofran Inj) 4 mg Q6H PRN IV NAUSEA AND/OR VOMITING; Start at 10:30 LAUREN AMES NP Apr 15, 2016 11:22
--- NOTE | 2016-04-15 11:36 | CONS ---
Date/Time of Note Date/Time of Note DATE: 04/15/16 TIME: 11:34 Consult Date/Type/Reason Admit Date/Time Apr 13, 2016 at 09:34 Initial Consult Date 04/14/16 Type of Consultation: pulmonary Ordering Provider: LAUREN AMES DIRECTOR FINANCIAL ANALYSIS Subjective Patient looks comfortable this morning sitting up in chair no shortness of breath Objective Vital Signs Date Time Temp Pulse Resp B/P Pulse Ox O2 Delivery O2 Flow Rate FiO2 04/15/16 11:31 97.6 113 18 165/89 96 04/15/16 09:21 Nasal Cannula 2.0 04/14/16 19:54 21 Intake and Output 04/14/16 04/14/16 04/15/16 15:00 23:00 07:00 Intake Total 800 ml 700 ml Balance 800 ml 700 ml PHYSICAL EXAMINATION: GENERAL: Well-nourished, well-developed lady, comfortable at rest, no acute distress. VITAL SIGNS: As above NECK: Supple. No JVD or lymphadenopathy. CARDIAC: S1, S2, no added sounds or murmurs. CHEST: Diminished air entry bilaterally. ABDOMEN: Soft, nontender. No guarding or rebound. EXTREMITIES: No cyanosis, clubbing, or edema. NEUROLOGIC: Generalized weakness, but no focal deficits. Results/Medications Result Diagram: 04/15/16 0530 04/15/16 0530 Results 24 hrs Laboratory Tests Test 04/14/16 21:18 04/15/16 05:30 Vancomycin Level Trough 17.3 Anion Gap 19 H Basophils # 0.0 Basophils % 0.2 Blood Morphology Comment Blood Urea Nitrogen 13 Calcium Level 9.0 Carbon Dioxide Level 28 Chloride Level 100 Creatinine 0.54 Eosinophils # 0.0 Eosinophils % 0.0 Glucose Level 122 Hematocrit 34.3 L Hemoglobin 11.7 L Lymphocytes # 0.8 Lymphocytes % 10.2 L Magnesium Level 2.0 Mean Corpuscular Hemoglobin 31.2 Mean Corpuscular Hemoglobin Concent 34.2 Mean Corpuscular Volume 91.3 Mean Platelet Volume 8.6 Monocytes # 0.4 Monocytes % 4.6 Neutrophils # 7.0 Neutrophils % 85.0 H Nucleated Red Blood Cells # 0.0 Nucleated Red Blood Cells % 0.0 Phosphorus Level 5.5 H Platelet Count 234 Potassium Level 4.2 Red Blood Count 3.76 L Red Cell Distribution Width 16.8 H Sodium Level 143 White Blood Count 8.3 # Medications Current Medications Methylprednisolone Sodium Succinate 40 mg 40 mg Q12 IV Last administered on 08:47; Admin Dose 40 MG; Start 04/13/16 at 09:00 Cefepime HCl 50 ml @ 100 mls/hr Q12 IVPB Last administered on 04/15/16 08:47 ; Admin Dose 100 MLS/HR; Start 04/13/16 at 09:00 Vancomycin HCl (Vancocin) 250 ml @ 125 mls/hr Q12H IVPB Last administered on 10:42; Admin Dose 125 MLS/HR; Start 04/13/16 at 22:00 Hydralazine HCl (Apresoline) 10 mg Q6H PRN IV SbP>160; Start 04/14/16 at 15:30 Nifedipine (Procardia Xl) 30 mg BID PO Last administered on 04/15/16 08:49; Admin Dose 30 MG; Start 04/14/16 at 21:00 Famotidine (Pepcid) 20 mg BID PO Last administered on 04/15/16 08:48; Admin Dose 20 MG; Start 04/14/16 at 21:00 Enoxaparin Sodium (Lovenox) 40 mg DAILY SC Last administered on 04/15/16 09:16 ; Admin Dose 40 MG; Start 04/15/16 at 09:00 Ibuprofen (Motrin) 600 mg Q6 PO Last administered on 04/15/16 08:48; Admin Dose 600 MG; Start 04/15/16 at 09:00 Tramadol HCl (Ultram) 100 mg Q6H PRN PO PAIN LEVEL 1-3 OR FEVER Last administered on 04/15/16 09:56; Admin Dose 100 MG; Start 04/15/16 at 08:30 Morphine Sulfate (morphine) 2 mg Q3H PRN IV PAIN LEVEL 7-10; Start 04/15/16 at 10:30 Ondansetron HCl (Zofran Inj) 4 mg Q6H PRN IV NAUSEA AND/OR VOMITING; Start at 10:30 Assessment/Plan Chief Complaint/Hosp Course LABORATORY DATA: White count 6.8, hemoglobin 12.4, platelets of 242. Chemistry within normal limits. IMPRESSION AND PLAN: 1. 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 2. Hypoxemia secondary to above. Patient will require: 1. Continued heme/oncology recommendations. 2. Continue steroids for possible lymphangitic spread. 3. Diuretics if indicated. 4. Supplemental O2 prior to discharge. 5. Room air ABG 6. Discharge planning patient stable from oncology standpoint Problems: TANYA RAMOS MD, [facility] Apr 15, 2016 11:36
--- NOTE | 2016-04-15 12:24 | CONS ---
DATE OF ADMISSION: 04/13/2016 DATE OF CONSULTATION: 04/15/2016 PALLIATIVE CARE AND PAIN MANAGEMENT CONSULTATION HISTORY OF PRESENT ILLNESS: This is a 40-year-old female who was admitted to [facility] [place] with increasing shortness of breath. She has a history of underlying asthma, breast cancer a nd possible new onset of pulmonary edema and pneumonia. She has been treated aggressively while in- house and is more comfortable at this time today compared to while speaking to Dr. Feliciano Atkins, but still unable to ambulate for extended period of time without increasing dyspnea. I am asked to con sult on her for metastatic breast cancer with widespread mets to the lungs and for pain management. Insofar as pain management, she describes her discomfort as primarily in the left upper back. She has no cough associated with. There is no radiation, described as 6/10. This is a lancinating type of discomfort which increases with walking and with deep breathing. As an outpatient she was takin g pain control medications, but was breaking through on fairly low doses of p.r.n. opioids and nonst eroidal antiinflammatory medications. She was diagnosed 7 years ago. MEDICATIONS: Please refer to reconciliation sheet. ALLERGIES: NO KNOWN DRUG ALLERGIES. MAJOR MEDICAL PROBLEMS IN THE PAST: Entirely per history of present illness. SOCIAL HISTORY: Lives with the family. Nonsmoker. FAMILY HISTORY: Noncontributory. There is no history of breast cancer in the family or other malig nancies. REVIEW OF SYSTEMS: A 12-point review of systems otherwise unremarkable except what is as per histor y of present illness. LABORATORY TESTS: White blood cell count of 8.3, hemoglobin 11.7, hematocrit 34.3, MCV of 91.3, donna telet count of 235,000. Chemistries: Serum sodium of 143, potassium 4.2, chloride 100, bicarbonate of 28, BUN of 13, creatinine 0.54. ASSESSMENT AND PLAN: This is a very pleasant 40-year-old female with metastatic breast cancer with widespread metastasis to her lungs who has failed multiple rounds of chemotherapy. I have spoken to her and her daughter insofar as progression of her breast cancer, and I have spoken to Dr. Kandi alejandre. The plan is to restart her on chemotherapy while in-house. I will support family members. The re is some issue that I will speak to family members about concerning communication amongst family m embers and progression of her underlying malignancy; however, Dr. Chau has explained it to her prio r. The patient is a full code. In addition, I will discontinue short acting opioids, they are not controlling her pain at this time. Will start her off on a therapeutic dose of nonsteroidal antiinf lammatory medications and also p.r.n. morphine. I am reluctant to her off on longacting opioids inc luding morphine or OxyContin at this time, although I feel she will probably require closer attentio n to her underlying pain management, but at this time, she appears to be relatively comfortable. Th e use of the high-dose nonsteroidal antiinflammatory medications is considered to be a first line dr hough for her degree of discomfort and metastasis. I will continue with the use of morphine in additio n. Dictated By: KATERYNA MATIAS MD, LP/TL Conf#: [id number] DID#: [id number]
[2016-04-15 13:01] LABS: AADO2 Arterial 31.3 mmHg (7.0-24.0); Allen Test ACCEPTAB; Arterial Base Excess 3.2 mmol/L (-3.0-3); Arterial COHb 0.1 % (0.0-3.0); Arterial Fraction of Oxyhgb 90.5 % (93.0-99.0); Arterial HCO3 28.9 mmol/L (22.0-26.0); Arterial MetHb 0.2 % (0.0-1.5); Arterial Total Hemglobin 15.8 g/dl (12.0-18.0); MODE ROOM AIR
--- NOTE | 2016-04-15 13:37 | CONS ---
Date/Time of Note Date/Time of Note DATE: 04/15/16 TIME: 13:32 Assessment/Plan Assessment/Plan Chief Complaint/Hosp Course 40yo female with ER+/MT+/HER 2+ metastatic breast cancer involving her chest wall and lungs. Pt has progressed through multiple lines of chemotherapy including Taxotere, Cytoxan, Xeloda, Lapatanib and Kadcyla. I had a long discussion with her treating oncologist at [facility] who recommended to start the patient on Gemzar/ Carboplatin in combination with Herceptin as she still has Her2+ disease. Pt presents with worsening SOB secondary to lymphangitic spread of her cancer through her lungs. CTA confirms lymphangitic spread of disease and no evidence of PE -will start Gemzar/ Carbo/ Herceptin. 1st dose planned for tomorrow -cont antibiotics in case of underlying infection -will need to order home O2 as patient is not able to breath without oxygen and desaturates - as stated before her prognosis is guarded since she has failed several chemotherapies. Approximately 40 min were spent at patient's bedside and in coordination of her care Problems: Consultation Date/Type/Reason Admit Date/Time Apr 13, 2016 at 09:34 Initial Consult Date 04/14/16 Type of Consultation: pulmonary Reason for Consultation metastatic breast cancer Referring Provider: LAUREN AMES [employer]IM WORKER 24 HR Interval Summary Free Text/Dictation steroids started by pulmonary for lymphangitic spread of disease through the lungs. remains short of breath. on o2 Exam/Review of Systems Vital Signs Vitals Vital Signs Date Time Temp Pulse Resp B/P Pulse Ox O2 Delivery O2 Flow Rate FiO2 04/15/16 12:42 107 04/15/16 11:31 97.6 18 165/89 96 04/15/16 09:21 Nasal Cannula 2.0 04/14/16 19:54 21 Intake and Output 04/14/16 04/14/16 04/15/16 14:59 22:59 06:59 Intake Total 800 ml 700 ml Balance 800 ml 700 ml Exam Constitutional: alert, distress, frail, oriented Psych: depression Head: normocephalic Eyes: nl conjunctiva ENMT: nl external ears & nose, nl lips & teeth Neck: non-tender, supple Respiratory: crackles/rales, diminished breath sounds Cardiovascular: regular rate and rhythm Gastrointestinal: soft Musculoskeletal: nl extremities to inspection Skin: other (extensive chest wall skin lesions that are necrotic) Results Result Diagram: 04/15/16 0530 04/15/16 0530 Results 24 hrs Laboratory Tests Test 04/14/16 21:18 04/15/16 05:30 04/15/16 12:30 Vancomycin Level Trough 17.3 Anion Gap 19 H Basophils # 0.0 Basophils % 0.2 Blood Morphology Comment Blood Urea Nitrogen 13 Calcium Level 9.0 Carbon Dioxide Level 28 Chloride Level 100 Creatinine 0.54 Eosinophils # 0.0 Eosinophils % 0.0 Glucose Level 122 Hematocrit 34.3 L Hemoglobin 11.7 L Lymphocytes # 0.8 Lymphocytes % 10.2 L Magnesium Level 2.0 Mean Corpuscular Hemoglobin 31.2 Mean Corpuscular Hemoglobin Concent 34.2 Mean Corpuscular Volume 91.3 Mean Platelet Volume 8.6 Monocytes # 0.4 Monocytes % 4.6 Neutrophils # 7.0 Neutrophils % 85.0 H Nucleated Red Blood Cells # 0.0 Nucleated Red Blood Cells % 0.0 Phosphorus Level 5.5 H Platelet Count 234 Potassium Level 4.2 Red Blood Count 3.76 L Red Cell Distribution Width 16.8 H Sodium Level 143 White Blood Count 8.3 # Arterial Blood HCO3 28.9 H Arterial Blood Base Excess 3.2 H Arterial Blood Oxygen Saturation 90.8 L Derick Test ACCEPTAB Arterial Blood Gas Puncture Site Right Radial Arterial Blood Carboxyhemoglobin 0.1 Arterial Blood Date Drawn 04/15/2016 12:40:47 PM Arterial Blood Methemoglobin 0.2 Arterial Blood pCO2 (Temp correct) 47.8 H Arterial Blood pH (Temp corrected) 7.399 Arterial Blood pO2 (Temp corrected) 61.2 L Blood Gas A-a O2 Differential 31.3 H Blood Gas Modality ROOM AIR Blood Gas Notified Time 04/15/2016 1:00:54 PM Blood Gas Notified Whom JLD Blood Gas Specimen Source Blood arterial Blood Gas Temperature 37.0 FiO2 21.0 Oxyhemoglobin Percent 90.5 L Total Hemoglobin 15.8 Medications Medications Current Medications Methylprednisolone Sodium Succinate 40 mg 40 mg Q12 IV Last administered on 08:47; Admin Dose 40 MG; Start 04/13/16 at 09:00 Cefepime HCl 50 ml @ 100 mls/hr Q12 IVPB Last administered on 04/15/16 08:47 ; Admin Dose 100 MLS/HR; Start 04/13/16 at 09:00 Vancomycin HCl (Vancocin) 250 ml @ 125 mls/hr Q12H IVPB Last administered on 10:42; Admin Dose 125 MLS/HR; Start 04/13/16 at 22:00 Hydralazine HCl (Apresoline) 10 mg Q6H PRN IV SbP>160; Start 04/14/16 at 15:30 Nifedipine (Procardia Xl) 30 mg BID PO Last administered on 04/15/16 08:49; Admin Dose 30 MG; Start 04/14/16 at 21:00 Famotidine (Pepcid) 20 mg BID PO Last administered on 04/15/16 08:48; Admin Dose 20 MG; Start 04/14/16 at 21:00 Enoxaparin Sodium (Lovenox) 40 mg DAILY SC Last administered on 04/15/16 09:16 ; Admin Dose 40 MG; Start 04/15/16 at 09:00 Ibuprofen (Motrin) 600 mg Q6 PO Last administered on 04/15/16 08:48; Admin Dose 600 MG; Start 04/15/16 at 09:00 Tramadol HCl (Ultram) 100 mg Q6H PRN PO PAIN LEVEL 1-3 OR FEVER Last administered on 04/15/16 09:56; Admin Dose 100 MG; Start 04/15/16 at 08:30 Morphine Sulfate (morphine) 2 mg Q3H PRN IV PAIN LEVEL 7-10; Start 04/15/16 at 10:30 Ondansetron HCl (Zofran Inj) 4 mg Q6H PRN IV NAUSEA AND/OR VOMITING; Start at 10:30 LUIS FELIPE ALCANTAR M.D. Apr 15, 2016 13:37
[2016-04-16] VITALS (14 sets, daily range): BP systolic 164–182; BP diastolic 81–109; PULSE 90–123; RESP 16–22
[2016-04-16] MEDS: IBUPROFEN 600 MG TAB PO SCH ×5 (00:17→23:40)
[2016-04-16] MEDS: LEVALBUTEROL (NEB) 0.63 MG/3 ML AMP HHN SCH ×4 (01:52→21:03)
[2016-04-16 05:27] LABS: HEMOGLOBIN 12.1 g/dl (12.0-16.0); LYMPHOCYTES # 0.8 10^3/ul (0.8-2.9); LYMPHOCYTES % 9.2 % (15.0-51.0); MEAN CORPUSCULAR HGB CONC 33.7 g/dl (32.0-37.0); MEAN CORPUSCULAR VOLUME 91.9 fl (82.0-101.0); MEAN PLATELET VOLUME 8.2 fl (7.4-10.4); MONOCYTE # 0.4 10^3/ul (0.3-0.9); MONOCYTES % 4.1 % (0.0-11.0); NEUTROPHIL # 7.7 10^3/ul (1.6-7.5); NEUTROPHILS % 86.7 % (39.0-77.0); PLATELET COUNT 262 10^3/UL (140-440); RED BLOOD COUNT 3.91 10^6/ul (4.20-5.40); RED CELL DISTRIBUTION WIDTH 16.5 % (11.5-14.5); UNCORRECTED WBC 8.9 10^3/ul (4.8-10.8); WHITE BLOOD COUNT 8.9 10^3/ul (4.8-10.8)
[2016-04-16 05:37] LABS: POTASSIUM 4.2 mmol/L (3.5-5.1)
[2016-04-16 05:39] LABS: CREATININE 0.6 mg/dl (0.44-1.00)
[2016-04-16 05:40] LABS: CALCIUM 9.1 mg/dl (8.4-10.2)
[2016-04-16 05:46] LABS: CONDITION 1; LH ANALYZER COMMENTS 1
[2016-04-16 05:51] LABS: MAGNESIUM 2.1 mg/dl (1.7-2.5); PHOSPHORUS 4.8 mg/dl (2.5-4.9)
[2016-04-16] MEDS: traMADol 50 MG TAB PO PRN ×2 (07:54→22:51)
[2016-04-16] MEDS: FAMOTIDINE 20 MG TAB PO SCH ×2 (08:41→20:13)
[2016-04-16] MEDS: METHYLPREDNISOLONE 40 MG INJ IV SCH ×2 (08:41→20:13)
[2016-04-16] MEDS: NIFEdipine (XL) 30 MG TAB PO SCH (08:41)
[2016-04-16] MEDS: CEFEPIME 1GM/50 ML (PMX) 50 ML IVPB SCH (08:49)
[2016-04-16] MEDS: ENOXAPARIN 40 MG/0.4 ML SYG SC SCH (08:55)
--- NOTE | 2016-04-16 09:35 | PN ---
Date/Time of Note Date/Time of Note DATE: 04/16/16 TIME: 09:33 Assessment/Plan VTE Prophylaxis VTE Prophylaxis Intervention: LMWH Lines/Catheters [facility] PICC Line Central line still needed: Yes Urinary Cath still in place: No Assessment/Plan Chief Complaint/Hosp Course 1. Acute respiratory failure. Hypoxic. Etiology could be from multifocal pneumonia versus underlying metastatic disease. Continue inhaled bronchodilators. Continue IV steroids. Pulmonary following. 2. Metastatic breast cancer involving chest wall and lungs. The patient being followed by oncology. The patient undergoing chemotherapy. 3. Essential hypertension. Continue routine antihypertensives and p.r.n. antihypertensives for any systolic blood pressure readings greater than 160 mmHg. 4. Fluid, electrolytes and nutrition. The patient will be continued on a regular diet. 5. Deep venous thrombosis prophylaxis, subcutaneous Lovenox. 6. Gastrointestinal prophylaxis with histamine 2 receptor blockers. 7. Plan. Continue oncology recommendations. Continue supplemental oxygen and inhaled bronchodilators. Will discontinue antibiotics since the patient has no obvious evidence of any infection. Taper down steroids. Case discussed with Dr. Atkins. Problems: Subjective 24 Hr Interval Summary Free Text/Dictation Complains of nausea with breathing treatment. Exam/Review of Systems Vital Signs Vitals Vital Signs Date Time Temp Pulse Resp B/P Pulse Ox O2 Delivery O2 Flow Rate FiO2 04/16/16 08:46 98.4 104 16 182/109 98 04/16/16 07:30 Nasal Cannula 2.0 04/14/16 19:54 21 Intake and Output 04/15/16 04/15/16 04/16/16 15:00 23:00 07:00 Intake Total 210 ml 700 ml Output Total 1200 ml Balance 210 ml -500 ml Exam GENERAL: This is a well-built, well-nourished female lying in bed not in any apparent distress. HEENT: Head normocephalic and atraumatic. Eyes: Anicteric sclerae. Conjunctivae clear. ENT: Nasal septum is midline. Oral mucosa is dry. NECK: Supple. No JVD noticed. RESPIRATORY: Bilaterally diminished breath sounds. No use of accessory muscles of respiration. CARDIAC: Regular rate and rhythm. Sinus tachycardia. ABDOMEN: Soft, nontender and nondistended. Bowel sounds positive in all 4 quadrants. GENITOURINARY: Deferred. EXTREMITIES: No cyanosis, no clubbing. Bilateral lower extremity 1+ pitting edema. Peripheral pulses are palpable. NEUROLOGIC: The patient is awake, alert and oriented. Cranial nerves are grossly intact. Results Result Diagram: 04/16/16 0450 04/16/16 0450 Results 24 hrs Laboratory Tests Test 04/15/16 12:30 04/16/16 04:50 Arterial Blood HCO3 28.9 H Arterial Blood Base Excess 3.2 H Arterial Blood Oxygen Saturation 90.8 L Derick Test ACCEPTAB Arterial Blood Gas Puncture Site Right Radial Arterial Blood Carboxyhemoglobin 0.1 Arterial Blood Date Drawn 04/15/2016 12:40:47 PM Arterial Blood Methemoglobin 0.2 Arterial Blood pCO2 (Temp correct) 47.8 H Arterial Blood pH (Temp corrected) 7.399 Arterial Blood pO2 (Temp corrected) 61.2 L Blood Gas A-a O2 Differential 31.3 H Blood Gas Modality ROOM AIR Blood Gas Notified Time 04/15/2016 1:00:54 PM Blood Gas Notified Whom JLD Blood Gas Specimen Source Blood arterial Blood Gas Temperature 37.0 FiO2 21.0 Oxyhemoglobin Percent 90.5 L Total Hemoglobin 15.8 Anion Gap 16 Basophils # 0.0 Basophils % 0.0 Blood Morphology Comment Blood Urea Nitrogen 12 Calcium Level 9.1 Carbon Dioxide Level 30 Chloride Level 98 Creatinine 0.60 Eosinophils # 0.0 Eosinophils % 0.0 Glucose Level 123 Hematocrit 36.0 L Hemoglobin 12.1 Lymphocytes # 0.8 Lymphocytes % 9.2 L Magnesium Level 2.1 Mean Corpuscular Hemoglobin 31.0 Mean Corpuscular Hemoglobin Concent 33.7 Mean Corpuscular Volume 91.9 Mean Platelet Volume 8.2 Monocytes # 0.4 Monocytes % 4.1 Neutrophils # 7.7 H Neutrophils % 86.7 H Nucleated Red Blood Cells # 0.0 Nucleated Red Blood Cells % 0.0 Phosphorus Level 4.8 Platelet Count 262 Potassium Level 4.2 Red Blood Count 3.91 L Red Cell Distribution Width 16.5 H Sodium Level 140 White Blood Count 8.9 Medications Medications Current Medications Methylprednisolone Sodium Succinate 40 mg 40 mg Q12 IV Last administered on 08:41; Admin Dose 40 MG; Start 04/13/16 at 09:00 Cefepime HCl 50 ml @ 100 mls/hr Q12 IVPB Last administered on 04/16/16 08:49 ; Admin Dose 100 MLS/HR; Start 04/13/16 at 09:00 Vancomycin HCl (Vancocin) 250 ml @ 125 mls/hr Q12H IVPB Last administered on 22:36; Admin Dose 125 MLS/HR; Start 04/13/16 at 22:00 Hydralazine HCl (Apresoline) 10 mg Q6H PRN IV SbP>160; Start 04/14/16 at 15:30 Nifedipine (Procardia Xl) 30 mg BID PO Last administered on 04/16/16 08:41; Admin Dose 30 MG; Start 04/14/16 at 21:00 Famotidine (Pepcid) 20 mg BID PO Last administered on 04/16/16 08:41; Admin Dose 20 MG; Start 04/14/16 at 21:00 Enoxaparin Sodium (Lovenox) 40 mg DAILY SC Last administered on 04/16/16 08:55 ; Admin Dose 40 MG; Start 04/15/16 at 09:00 Ibuprofen (Motrin) 600 mg Q6 PO Last administered on 04/16/16 06:10; Admin Dose 600 MG; Start 04/15/16 at 09:00 Tramadol HCl (Ultram) 100 mg Q6H PRN PO PAIN LEVEL 1-3 OR FEVER Last administered on 04/16/16 07:54; Admin Dose 100 MG; Start 04/15/16 at 08:30 Morphine Sulfate (morphine) 2 mg Q3H PRN IV PAIN LEVEL 7-10; Start 04/15/16 at 10:30 Ondansetron HCl (Zofran Inj) 4 mg Q6H PRN IV NAUSEA AND/OR VOMITING; Start at 10:30 LAUREN AMES NP Apr 16, 2016 09:35
[2016-04-16] MEDS: hydrALAzine 20 MG INJ IV PRN ×3 (10:35→23:05)
[2016-04-16] MEDS ORDERED: FUROSEMIDE 20 MG INJ IV STA (11:03)
[2016-04-16] MEDS ORDERED: ONDANSETRON INJ 8 MG in SOD CHLORIDE 0.9% 50 ML IV PRN (11:45)
[2016-04-16] MEDS ORDERED: DIPHENHYDRAMINE 50 MG INJ IV PRN (12:00)
[2016-04-16] MEDS ORDERED: ONDANSETRON INJ 16 MG, DEXAMETHASONE 4 MG/ML 10 MG, DIPHENHYDRAMINE 25 MG in SOD CHLORI... IV SCH (12:00)
[2016-04-16] MEDS ORDERED: DEXAMETHASONE 10 MG/ML 1 ML INJ IV PRN (12:00)
[2016-04-16] MEDS ORDERED: SOD CHLORIDE 0.9% IV SCH ×3 (13:00→15:30)
[2016-04-16] MEDS ORDERED: TRASTUZUMAB IV SCH (13:00)
[2016-04-16] MEDS: SOD CHLORIDE 0.9% 1,000 ML IV SCH ×2 (13:07→22:30)
--- NOTE | 2016-04-16 13:30 | CONS ---
Date/Time of Note Date/Time of Note DATE: 04/16/16 TIME: 13:28 Assessment/Plan Assessment/Plan Chief Complaint/Hosp Course 40yo female with ER+/VT+/HER 2+ metastatic breast cancer involving her chest wall and lungs. Pt has progressed through multiple lines of chemotherapy including Taxotere, Cytoxan, Xeloda, Lapatanib and Kadcyla. I had a long discussion with her treating oncologist at [facility] who recommended to start the patient on Gemzar/ Carboplatin in combination with Herceptin as she still has Her2+ disease. Pt presents with worsening SOB secondary to lymphangitic spread of her cancer through her lungs. CTA confirms lymphangitic spread of disease and no evidence of PE -will start Gemzar/ Carbo/ Herceptin. 1st dose planned for later today -cont antibiotics in case of underlying infection -will need to order home O2 as patient is not able to breath without oxygen and desaturates - as stated before her prognosis is guarded since she has failed several chemotherapies. Approximately 40 min were spent at patient's bedside and in coordination of her care Problems: Consultation Date/Type/Reason Admit Date/Time Apr 13, 2016 at 09:34 Initial Consult Date 04/14/16 Type of Consultation: pulmonary Reason for Consultation metastatic her 2+ breast cancer Referring Provider: LAUREN AMES NEW PATIENT ESCORT 24 HR Interval Summary Free Text/Dictation no acute overnight events. pt still with sob. to start chemotherapy with Herceptin/ Gemcitabine and Carboplatin today Exam/Review of Systems Vital Signs Vitals Vital Signs Date Time Temp Pulse Resp B/P Pulse Ox O2 Delivery O2 Flow Rate FiO2 04/16/16 11:15 123 178/96 04/16/16 08:46 98.4 16 98 04/16/16 07:30 Nasal Cannula 2.0 04/14/16 19:54 21 Intake and Output 04/15/16 04/15/16 04/16/16 15:00 23:00 07:00 Intake Total 210 ml 700 ml Output Total 1200 ml Balance 210 ml -500 ml Exam Constitutional: alert, oriented Psych: no complaints Head: atraumatic, normocephalic Eyes: nl conjunctiva ENMT: nl external ears & nose, nl lips & teeth Neck: non-tender, supple Respiratory: diminished breath sounds, intercostal retraction Cardiovascular: nl pulses Gastrointestinal: soft Musculoskeletal: nl extremities to inspection, nl gait and stance Extremities: normal pulses 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: NON LINEAR EDITOR II-XII intact Skin: other (chest wall skin thicking form metastatic infiltraton of disease) Results Result Diagram: 04/16/1644904/16/16 0450 Results 24 hrs Laboratory Tests Test 04/16/16 04:50 Anion Gap 16 Basophils # 0.0 Basophils % 0.0 Blood Morphology Comment Blood Urea Nitrogen 12 Calcium Level 9.1 Carbon Dioxide Level 30 Chloride Level 98 Creatinine 0.60 Eosinophils # 0.0 Eosinophils % 0.0 Glucose Level 123 Hematocrit 36.0 L Hemoglobin 12.1 Lymphocytes # 0.8 Lymphocytes % 9.2 L Magnesium Level 2.1 Mean Corpuscular Hemoglobin 31.0 Mean Corpuscular Hemoglobin Concent 33.7 Mean Corpuscular Volume 91.9 Mean Platelet Volume 8.2 Monocytes # 0.4 Monocytes % 4.1 Neutrophils # 7.7 H Neutrophils % 86.7 H Nucleated Red Blood Cells # 0.0 Nucleated Red Blood Cells % 0.0 Phosphorus Level 4.8 Platelet Count 262 Potassium Level 4.2 Red Blood Count 3.91 L Red Cell Distribution Width 16.5 H Sodium Level 140 White Blood Count 8.9 Medications Medications Current Medications Hydralazine HCl (Apresoline) 10 mg Q6H PRN IV SbP>160 Last administered on 04/16 10:35; Admin Dose 10 MG; Start 04/14/16 at 15:30 Famotidine (Pepcid) 20 mg BID PO Last administered on 04/16/16 08:41; Admin Dose 20 MG; Start 04/14/16 at 21:00 Enoxaparin Sodium (Lovenox) 40 mg DAILY SC Last administered on 04/16/16 08:55 ; Admin Dose 40 MG; Start 04/15/16 at 09:00 Ibuprofen (Motrin) 600 mg Q6 PO Last administered on 04/16/16 13:05; Admin Dose 600 MG; Start 04/15/16 at 09:00 Tramadol HCl (Ultram) 100 mg Q6H PRN PO PAIN LEVEL 1-3 OR FEVER Last administered on 04/16/16 07:54; Admin Dose 100 MG; Start 04/15/16 at 08:30 Morphine Sulfate (morphine) 2 mg Q3H PRN IV PAIN LEVEL 7-10; Start 04/15/16 at 10:30 Ondansetron HCl (Zofran Inj) 4 mg Q6H PRN IV NAUSEA AND/OR VOMITING; Start at 10:30 Nifedipine (Procardia Xl) 60 mg BID PO ; Start 04/16/16 at 21:00 Methylprednisolone Sodium Succinate 20 mg 20 mg Q12 IV ; Start 04/16/16 at 21:00 Ondansetron HCl/ Sodium Chloride (Zofran Inj/NS) 54 ml @ 220 mls/hr Q8H PRN IV NAUSEA AND/OR VOMITING; Start 04/16/16 at 11:45 Dexamethasone (Decadron) 10 mg Q4H PRN IV ALLERGIC REACTION; Start 04/16/16 at 12:00 Diphenhydramine HCl 25 mg 25 mg Q4H PRN IV ALLERGIC REACTION; Start 04/16/16 at 12:00 Trastuzumab 585 mg/Sodium Chloride 250 ml @ 166.667 mls/hr ONCE IV ; Start at 13:00; Stop 04/16/16 at 14:29 Gemcitabine HCl 1.4 gm/Sodium Chloride 250 ml @ 250 mls/hr ONCE IV ; Start at 14:30; Stop 04/16/16 at 15:29 Carboplatin 300 mg/Sodium Chloride 250 ml @ 250 mls/hr ONCE IV ; Start at 15:30; Stop 04/16/16 at 16:29 Sodium Chloride (NS) 1,000 ml @ 100 mls/hr Q10H IV Last administered on t 13:07; Admin Dose 100 MLS/HR; Start 04/16/16 at 12:30 LUIS FELIPE ALCANTAR M.D. Apr 16, 2016 13:30
[2016-04-16] MEDS ORDERED: LORAZEPAM 2 MG INJ IV PRN (14:00)
[2016-04-16] MEDS: IPRATROPIUM (NEB) 0.5 MG/2.5 ML AMP HHN SCH ×2 (14:00→21:03)
[2016-04-16] MEDS ORDERED: GEMCITABINE IV SCH (14:30)
[2016-04-16] MEDS ORDERED: CARBOPLATIN IV SCH (15:30)
[2016-04-16] MEDS: NIFEdipine (XL) 60 MG TAB PO SCH (20:13)
[2016-04-17 00:05] VITALS: BP 169/83; PULSE 118; RESP 20
[2016-04-17 01:00] VITALS: BP 164/85; PULSE 119; RESP 21
[2016-04-17] MEDS: LEVALBUTEROL (NEB) 0.63 MG/3 ML AMP HHN SCH ×2 (01:36→08:35)
[2016-04-17] MEDS: IPRATROPIUM (NEB) 0.5 MG/2.5 ML AMP HHN SCH ×2 (01:37→08:35)
[2016-04-17 03:00] VITALS: BP 148/77; PULSE 117; RESP 21
[2016-04-17 05:31] LABS: HEMATOCRIT 35.5 % (37.0-47.0); HEMOGLOBIN 12.2 g/dl (12.0-16.0); LYMPHOCYTES # 0.7 10^3/ul (0.8-2.9); LYMPHOCYTES % 6.2 % (15.0-51.0); MEAN CORPUSCULAR HEMOGLOBIN 31.5 pg (29.0-33.0); MEAN CORPUSCULAR HGB CONC 34.4 g/dl (32.0-37.0); MEAN CORPUSCULAR VOLUME 91.6 fl (82.0-101.0); MEAN PLATELET VOLUME 7.9 fl (7.4-10.4); MONOCYTE # 1.2 10^3/ul (0.3-0.9); MONOCYTES % 10.4 % (0.0-11.0); NEUTROPHIL # 9.7 10^3/ul (1.6-7.5); NEUTROPHILS % 83.4 % (39.0-77.0); PLATELET COUNT 293 10^3/UL (140-440); RED BLOOD COUNT 3.88 10^6/ul (4.20-5.40); RED CELL DISTRIBUTION WIDTH 16.8 % (11.5-14.5); UNCORRECTED WBC 11.6 10^3/ul (4.8-10.8); WHITE BLOOD COUNT 11.6 10^3/ul (4.8-10.8)
[2016-04-17 06:01] LABS: PHOSPHORUS 4.5 mg/dl (2.5-4.9)
[2016-04-17 06:02] LABS: MAGNESIUM 2.1 mg/dl (1.7-2.5)
[2016-04-17 06:04] LABS: POTASSIUM 3.9 mmol/L (3.5-5.1)
[2016-04-17 06:07] LABS: CALCIUM 8.6 mg/dl (8.4-10.2); CREATININE 0.55 mg/dl (0.44-1.00)
[2016-04-17 06:10] VITALS: BP 158/88; PULSE 114; RESP 20
[2016-04-17 06:18] LABS: CONDITION 1; LH ANALYZER COMMENTS 1
[2016-04-17] MEDS: IBUPROFEN 600 MG TAB PO SCH (06:34)
[2016-04-17 07:34] VITALS: BP 169/84; RESP 16
[2016-04-17] MEDS: FAMOTIDINE 20 MG TAB PO SCH (09:32)
[2016-04-17] MEDS: NIFEdipine (XL) 60 MG TAB PO SCH (09:33)
[2016-04-17] MEDS: METHYLPREDNISOLONE 40 MG INJ IV SCH (09:33)
[2016-04-17] MEDS: ENOXAPARIN 40 MG/0.4 ML SYG SC SCH (09:39)
--- NOTE | 2016-04-17 10:01 | PDOCDIS ---
Discharge Instructions DIAGNOSIS Discharge Diagnosis: METASTATIC BREAST CANCER CONDITION Patient Condition: Stable HOME CARE INSTRUCTIONS: Diet Instructions: RegularSpecial Diet: RD OTHER ORDERS: Other Orders: 1. Regular diet as tolerated. 2. Resume activities as tolerated. 3. Take medications as per prescription. 4. Follow-up with Dr. Chau as scheduled. 5. Use supplemental O2 as needed. LAUREN AMES NP Apr 17, 2016 10:01
[2016-04-17] MEDS ORDERED: NIFE60TA11 PO (10:03)
[2016-04-17] MEDS: traMADol 50 MG TAB PO PRN (11:33)
--- NOTE | 2016-04-17 12:44 | CONS ---
Date/Time of Note Date/Time of Note DATE: 04/17/16 TIME: 12:43 Assessment/Plan Assessment/Plan Chief Complaint/Hosp Course 40yo female with ER+/KS+/HER 2+ metastatic breast cancer involving her chest wall and lungs. Pt has progressed through multiple lines of chemotherapy including Taxotere, Cytoxan, Xeloda, Lapatanib and Kadcyla. I had a long discussion with her treating oncologist at [facility] who recommended to start the patient on Gemzar/ Carboplatin in combination with Herceptin as she still has Her2+ disease. Pt presents with worsening SOB secondary to lymphangitic spread of her cancer through her lungs. CTA confirms lymphangitic spread of disease and no evidence of PE -will start Gemzar/ Carbo/ Herceptin. s/p 1 st dose. day 8 will be given next week in our office. -cont antibiotics in case of underlying infection -will need to order home O2 as patient is not able to breath without oxygen and desaturates - as stated before her prognosis is guarded since she has failed several chemotherapies. Approximately 40 min were spent at patient's bedside and in coordination of her care Problems: Consultation Date/Type/Reason Admit Date/Time Apr 13, 2016 at 09:34 Initial Consult Date 04/14/16 Type of Consultation: Hematology Reason for Consultation metastatic her 2+ breast cancer Referring Provider: LAUREN AMES NP 24 HR Interval Summary Free Text/Dictation no acute overnight events. tolerated chemotherapy well Exam/Review of Systems Vital Signs Vitals Vital Signs Date Time Temp Pulse Resp B/P Pulse Ox O2 Delivery O2 Flow Rate FiO2 04/17/16 10:00 Nasal Cannula 3.0 04/17/16 08:35 120 18 97 04/17/16 07:34 97.9 169/84 04/14/16 19:54 21 Intake and Output 04/16/16 04/16/16 04/17/16 15:00 23:00 07:00 Intake Total 1490 ml 1350 ml Balance 1490 ml 1350 ml Exam Constitutional: alert, oriented Psych: no complaints Head: atraumatic, normocephalic Eyes: nl conjunctiva ENMT: nl external ears & nose Neck: non-tender, supple Respiratory: clear to auscultation, normal air movement Cardiovascular: regular rate and rhythm Gastrointestinal: soft Musculoskeletal: nl extremities to inspection, nl gait and stance Extremities: normal pulses 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: ROUGHER HELPER II-XII intact Results Result Diagram: 04/17/16 0430 04/17/16 0430 Results 24 hrs Laboratory Tests Test 04/17/16 04:30 Anion Gap 16 Basophils # 0.0 Basophils % 0.0 Blood Morphology Comment Blood Urea Nitrogen 16 Calcium Level 8.6 Carbon Dioxide Level 28 Chloride Level 100 Creatinine 0.55 Eosinophils # 0.0 Eosinophils % 0.0 Glucose Level 113 Hematocrit 35.5 L Hemoglobin 12.2 Lymphocytes # 0.7 L Lymphocytes % 6.2 L Magnesium Level 2.1 Mean Corpuscular Hemoglobin 31.5 Mean Corpuscular Hemoglobin Concent 34.4 Mean Corpuscular Volume 91.6 Mean Platelet Volume 7.9 Monocytes # 1.2 H Monocytes % 10.4 Neutrophils # 9.7 H Neutrophils % 83.4 H Nucleated Red Blood Cells # 0.0 Nucleated Red Blood Cells % 0.0 Phosphorus Level 4.5 Platelet Count 293 Potassium Level 3.9 Red Blood Count 3.88 L Red Cell Distribution Width 16.8 H Sodium Level 140 White Blood Count 11.6 #H Medications Medications Current Medications Hydralazine HCl (Apresoline) 10 mg Q6H PRN IV SbP>160 Last administered on 04/16 23:05; Admin Dose 10 MG; Start 04/14/16 at 15:30 Famotidine (Pepcid) 20 mg BID PO Last administered on 04/17/16 09:32; Admin Dose 20 MG; Start 04/14/16 at 21:00 Enoxaparin Sodium (Lovenox) 40 mg DAILY SC Last administered on 04/17/16 09:39 ; Admin Dose 40 MG; Start 04/15/16 at 09:00 Ibuprofen (Motrin) 600 mg Q6 PO Last administered on 04/17/16 06:34; Admin Dose 600 MG; Start 04/15/16 at 09:00 Tramadol HCl (Ultram) 100 mg Q6H PRN PO PAIN LEVEL 1-3 OR FEVER Last administered on 04/17/16 11:33; Admin Dose 100 MG; Start 04/15/16 at 08:30 Morphine Sulfate (morphine) 2 mg Q3H PRN IV PAIN LEVEL 7-10 Last administered on 04/17/16 00:11; Admin Dose 2 MG; Start 04/15/16 at 10:30 Ondansetron HCl (Zofran Inj) 4 mg Q6H PRN IV NAUSEA AND/OR VOMITING; Start at 10:30 Nifedipine (Procardia Xl) 60 mg BID PO Last administered on 04/17/16 09:33; Admin Dose 60 MG; Start 04/16/16 at 21:00 Methylprednisolone Sodium Succinate 20 mg 20 mg Q12 IV Last administered on 09:33; Admin Dose 20 MG; Start 04/16/16 at 21:00 Ondansetron HCl/ Sodium Chloride (Zofran Inj/NS) 54 ml @ 220 mls/hr Q8H PRN IV NAUSEA AND/OR VOMITING; Start 04/16/16 at 11:45 Dexamethasone (Decadron) 10 mg Q4H PRN IV ALLERGIC REACTION; Start 04/16/16 at 12:00 Diphenhydramine HCl 25 mg 25 mg Q4H PRN IV ALLERGIC REACTION; Start 04/16/16 at 12:00 Sodium Chloride (NS) 1,000 ml @ 100 mls/hr Q10H IV Last administered on 13:07; Admin Dose 100 MLS/HR; Start 04/16/16 at 12:30 Lorazepam (Ativan) 0.5 mg Q8H PRN IV Anxiety; Start 04/16/16 at 14:00 LUIS FELIPE ALCANTAR M.D. Apr 17, 2016 12:44
--- NOTE | 2016-04-17 12:56 | DS ---
DATE OF ADMISSION: 04/13/2016 DATE OF DISCHARGE: 04/17/2016 FINAL DIAGNOSES 1. Acute hypoxic respiratory failure likely secondary to restrictive lung disease from metastatic breast cancer with metastasis to the lungs. 2. Metastatic breast cancer involving chest, wall, and lungs. 3. Essential hypertension, newly diagnosed versus undiagnosed. CONSULTANTS: 1. Dr. Jessica Chau, Oncology 2. Dr. Saul Cardozo, Pulmonary 3. Dr. Nelia Herrera, Palliative Care HOSPITAL COURSE: This is a 40-year-old female with past medical history of breast cancer status post mastectomy, currently undergoing chemotherapy, who came to the emergency room with a chief complaint of dyspnea. The patient was discharged from [facility] on 04/12/2016 when she was admitted with similar complaints. The patient came to the hospital on 2016 because of significant dyspnea. In the emergency room, the patient underwent a chest x-ray that showed bilateral hazy and patchy opacities that could represent pulmonary edema and/or multifocal pneumonia. The patient was also noticed to have some sinus tachycardia. The patient was noticed to be hypoxic. Provided the patient's history of present illness and the diagnostic findings, a clinical decision was made to admit the patient to inpatient setting to have her further evaluated. The patient was admitted to inpatient telemetry floor. An oncology consult and pulmonary consult was called on this patient. The patient's respiratory failure was thought to be secondary to lung metastasis. However, provided the imaging studies, the patient was also treated for any underlying multifocal pneumonia. The patient's WBC remained stable. The patient had no febrile illness. It was concluded that the patient has no underlying infectious process. Hence, the patient's antibiotics were discontinued. The patient's hypoxia, was concluded to be secondary to underlying metastatic disease involving the lungs space causing restrictive lung disease. The patient was maintained on supplemental oxygen. The patient was maintained on inhaled bronchodilators. The patient was started on chemotherapy as per oncology, and the patient finished chemotherapy. The patient was noticed to have high blood pressure readings. The patient either has essential hypertension that is undiagnosed versus newly diagnosed. The patient was started on antihypertensives with improvement in the patient's blood pressure. The patient also underwent a 2-D echocardiogram that showed no evidence of any heart failure. The 2-D echocardiogram showed preserved left ventricular ejection fraction with ejection fraction of 65%. The patient had no evidence of any pulmonary hypertension. The patient's ABG on room air showed significant hypoxia with a pO2 of 61.2 and minimal CO2 retention. Hence , home oxygen was arranged for this patient. The patient had a stable hospital course. The patient was cleared by consultants to be discharged home. DISCHARGE DISPOSITION AND PLAN: The patient will be discharged home today. She was instructed to take a regular diet as tolerated and to resume activities as tolerated. She was instructed to use supplemental oxygen as needed. The patient was instructed to take medications as per prescription. She was instructed to follow up with Dr. Chau as scheduled. The patient was instructed to go to the nearest emergency room if she has significant shortness of breath despite using inhaled bronchodilators or if she has any chest pain despite using pain medications. The patient verbalized understanding of her discharge instructions. CONDITION AT DISCHARGE: Stable. DISCHARGE MEDICATIONS: 1. Nifedipine XL 60 mg p.o. b.i.d. 2. ProAir HFA 2 puffs inhaled q.4 hours p.r.n. shortness of breath. 3. Percocet 5/325 one tablet p.o. q.6 hours p.r.n. pain. PERTINENT LABORATORY AND DIAGNOSTIC DATA: 1. 2-D echocardiogram. Ejection fraction of 65%. Estimated peak PA systolic pressure of 22 mmHg. No significant valvular stenosis or regurgitation. 2. Chest x-ray. Bilateral hazy and patchy opacities could represent pulmonary edema and/or multifocal pneumonia, unchanged. 3. CT angiogram of the chest. There is no evidence of pulmonary embolism. There is soft tissue density extending through the hilar regions considerably more extensive on the right extremity far peripherally in the right middle lobe and right lower lobe associated with atelectatic changes. Soft tissue fullness in the subcarinal region measuring 1.4 cm in diameter. Several right axillary nodes up to 1.3 cm. Hepatomegaly with no focal lesions but with diffuse fatty infiltration. 4. Latest CBC: WBC 11.6, hemoglobin 12.2, hematocrit 35.5, platelet count 293. 5. BMP: Sodium 140, potassium 3.9, chloride 100, carbon dioxide 28, anion gap 16, BUN 16, creatinine 0.55, glucose 113, calcium 8.6, phosphorus 4.5, magnesium 2.1. 6. Blood gas that was done on room air: PH 7.39, pCO2 of 47.8, pO2 61.2, bicarbonate 28.9, oxygen saturation 90.8, base excess 3.2. At this time, we would like to thank all the consultants for seeing the patient and providing clinical recommendations. The case and management of this patient was fully discussed with Dr. Haines. Approximately 40 minutes was spent on coordinating the discharge of this patient. LAUREN HAINES MD, AM/TL Conf#: [id number] DID#: [id number] MTDD
== END 2016-04-17 12:42 | disposition home or self-care (01) | DRG 180 ==
LOC: E/R 02:21 → MS4 05:13 → UNDOADMOB 05:13 → MS4 05:22 → OBSVTOIN 09:34 → MS1 04-15 13:25
PROVIDERS: ADMIT Internal Medicine; ATTEND Internal Medicine
PROC: 4A033R1 Measurement of Arterial Saturation, Peripheral, Percutaneous Approach (ICD-10-PCS; 2016-04-15)
PROC: 3E03305 Introduction of Other Antineoplastic into Peripheral Vein, Percutaneous Approach (ICD-10-PCS; principal; 2016-04-16)
DX: C78.00 Secondary malignant neoplasm of unspecified lung (principal); J96.01 Acute respiratory failure with hypoxia; C79.89 Secondary malignant neoplasm of other specified sites; J98.4 Other disorders of lung; C50.911 Malignant neoplasm of unspecified site of right female breast; J45.909 Unspecified asthma, uncomplicated; I10 Essential (primary) hypertension; Z85.3 Personal history of malignant neoplasm of breast; Z90.12 Acquired absence of left breast and nipple; Z92.21 Personal history of antineoplastic chemotherapy
CPT/HCPCS: 36415; 36600; 71020; 71275; 80048; 80202; 82803; 83735; 84100; 84484; 85025; 93005; 93306; 94640; 94664; 96374; G0378; J1940; J9045; J9201; J9355; J0360; J0692; J1100; J1170; J1200; J1650; J2060; J2270; J2405; J2920; J3370; J7030; J7050; Q9967

== ENCOUNTER 2016-08-27 13:22 | Inpatient (IN) | payer OTHER ==
[~2016-08-27] VITALS: Ht 160 cm; Wt 72.7 kg
[~2016-08-27 13:22] MED LIST changes: -AMOX1TAB10 PO; +NIFE60TA11 PO
[2016-08-27] MEDS ORDERED: SODIUM CHLORIDE 0.9% 1L BAG IV* STA (14:17)
[2016-08-27] MEDS ORDERED: PIPER-TAZO 3.375 GM IV (PMX) 100 ML IVPB STA (14:17)
[2016-08-27] MEDS ORDERED: HYDR-902 PO (14:35)
[2016-08-27 14:44] LABS: ADD SCAN DIFF NO
[2016-08-27 14:47] LABS: BASOPHILS % 0.3 % (0.0-2.0); EOSINOPHILS # 0.2 10^3/ul (0.0-0.5); EOSINOPHILS % 2.2 % (0.0-7.0); HEMATOCRIT 32.3 % (37.0-47.0); HEMOGLOBIN 10.7 g/dl (12.0-16.0); LYMPHOCYTES % 12.3 % (15.0-51.0); MEAN CORPUSCULAR HEMOGLOBIN 30.5 pg (29.0-33.0); MEAN CORPUSCULAR HGB CONC 33.1 g/dl (32.0-37.0); MONOCYTE # 0.4 10^3/ul (0.3-0.9); MONOCYTES % 5.6 % (0.0-11.0); NEUTROPHIL # 6.3 10^3/ul (1.6-7.5); NEUTROPHILS % 79.3 % (39.0-77.0); PLATELET COUNT 318 10^3/UL (140-415); RED BLOOD COUNT 3.51 10^6/ul (4.20-5.40); RED CELL DISTRIBUTION WIDTH 14.3 % (11.5-14.5); WHITE BLOOD COUNT 7.9 10^3/ul (4.8-10.8)
[2016-08-27 15:01] LABS: INR 0.99; PROTIME 13.1 Sec (12.2-14.2)
[2016-08-27 15:02] LABS: PARTIAL THROMBOPLASTIN TIME 57.5 Sec (25.0-35.0)
[2016-08-27 15:04] LABS: ALANINE AMINOTRANSFERASE 64 IU/L (13-69); ALBUMIN 4.7 g/dl (3.3-4.9); ALBUMIN/GLOBULIN RATIO 1.56; ALKALINE PHOSPHATASE 199 IU/L (42-121); ANION GAP 12 (8-16); ASPARTATE AMINO TRANSFERASE 40 IU/L (15-46); BILIRUBIN,INDIRECT 0.1 mg/dl (0-1.1); BILIRUBIN,TOTAL 0.1 mg/dl (0.2-1.3); BLOOD UREA NITROGEN 16 mg/dl (7-20); CALCIUM 9.5 mg/dl (8.4-10.2); CARBON DIOXIDE 32 mmol/L (21-31); CHLORIDE 99 mmol/L (97-110); CREATININE 0.52 mg/dl (0.44-1.00); GLUCOSE 102 mg/dl (70-220); POTASSIUM 4.3 mmol/L (3.5-5.1); SODIUM 139 mmol/L (135-144); TOTAL PROTEIN 7.7 g/dl (6.1-8.1)
--- NOTE | 2016-08-27 15:09 | RADRPT ---
PROCEDURE: XR Chest. CLINICAL INDICATION: chest pain TECHNIQUE: Single frontal view of the chest was obtained COMPARISON: 04/14/16 FINDINGS: The heart and mediastinum are within normal limits. There are low lung volumes with increased interstitial changes in the lung bases, likely chronic. T here is a right-sided PICC line with its tip overlying the mid SVC. There is no pleural effusion or pneumothorax. RPTAT: AA IMPRESSION: Low lung volumes with increased interstitial changes in the lung bases, likely chronic. .Derrick Foster MD, MD Date Time Electronically viewed and signed by .Derrick Foster MD, MD on 08/27/2016 15:09 .S/
[2016-08-27 15:16] LABS: TROPONIN-I < 0.012 ng/ml (0.00-0.12)
[2016-08-27] MEDS ORDERED: HYDROCODONE/APAP (7.5/325) TAB PO ONE (16:00)
[2016-08-27] MEDS ORDERED: VANCOMYCIN 1 GM (PMX) 250 ML IVPB SCH (16:30)
[2016-08-27] MEDS ORDERED: ACETAMINOPHEN 325 MG TAB PO PRN ×2 (17:00→19:30)
[2016-08-27] MEDS ORDERED: ONDANSETRON 4 MG INJ IV PRN ×2 (17:00→19:30)
--- NOTE | 2016-08-27 17:23 | ERA ---
ER Documentation Chief Complaint Date/Time DATE: 08/27/16 TIME: 17:03 Chief Complaint cp since yesterday, chemo last thursday HPI This 41-year-old female presents for right upper chest pain surrounding her fungating mass as well as shortness of breath. He submitted going on for the last few days and been getting worse. She is undergoing chemotherapy and last had chemotherapy 5 days ago.. Her original cancer was breast cancer and has subsequently spread. She has had chills but is not sure she has had any fevers. She denies cough.. ROS All systems reviewed and are negative except as per history of present illness. Medications Home Meds Reported Medications Hydrocodone/Acetaminophen (Spencer 10-325 Tablet) 1 Each Tablet, 1 EACH PO QID Y for PAIN, TAB 08/27/16 Discontinued Reported Medications Oxycodone HCl/Acetaminophen (Percocet 5-325 mg Tablet) 1 Each Tablet, 1-2 TAB PO Q6 Y for PAIN, TAB 04/11/16 Discontinued Scripts Nifedipine (Nifedical Xl) 60 Mg Tab.er.24, 60 MG PO BID for 30 Days, TAB Prov:LAUREN AMES [employer] WIRER 04/17/16 Albuterol Sulfate* (Proair HFA*) 8.5 Gm Hfa.aer.ad, 2 PUFF INH Q4 for SHORTNESS OF BREATH, #1 INHALER 1 Refill Prov:ESHA MORRIS 04/12/16 Allergies Allergies: Coded Allergies: No Known Allergy (Unverified , 08/27/16) PMhx/Soc History of Surgery: Yes (L. BREAST MASTECTOMY) Anesthesia Reaction: No Hx 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 Disorder: No Hx Respiratory Disorders: Yes (ASTHMA) Hx Cardiac Disorders: No Hx Psychiatric Problems: No Hx Miscellaneous Medical Probl: No (BREAST CA ON CHEM) Hx Alcohol Use: No Hx Substance Use: No Hx Tobacco Use: No Physical Exam Vitals Vital Signs Date Time Temp Pulse Resp B/P Pulse Ox O2 Delivery O2 Flow Rate FiO2 08/27/16 14:25 Nasal Cannula 2 08/27/16 13:33 98.5 134 20 118/71 99 Physical Exam Const: [] Mild distress, appears very uncomfortable Head: Atraumatic Eyes: Normal Conjunctiva ENT: Normal External Ears, Nose and Mouth. Neck: Full range of motion..~ No meningismus. Resp: Bibasilar absent breath sounds, no rales Cardio: Regular tachycardia, no murmurs Abd: Soft, non tender, non distended. Normal bowel sounds Skin: No petechiae or rashes Back: No midline or flank tenderness Ext: No cyanosis, or edema, right chest wall with large from the fungating mass with surrounding erythema and calor the appearance of cellulitis. Neur: Awake and alert and oriented 3, no focal deficits Psych: Normal Mood and Affect Result Diagram: 08/27/16 1425 08/27/16 1425 Results 24 hrs Laboratory Tests Test 08/27/16 14:25 08/27/16 16:30 White Blood Count 7.910^3/ul Red Blood Count 3.5110^6/ul Hemoglobin 10.7g/dl Hematocrit 32.3% Mean Corpuscular Volume 92.0fl Mean Corpuscular Hemoglobin 30.5pg Mean Corpuscular Hemoglobin Concent 33.1g/dl Red Cell Distribution Width 14.3% Platelet Count 06162^3/UL Mean Platelet Volume 10.0fl Neutrophils % 79.3% Lymphocytes % 12.3% Monocytes % 5.6% Eosinophils % 2.2% Basophils % 0.3% Nucleated Red Blood Cells % 0.0/100WBC Neutrophils # 6.310^3/ul Lymphocytes # 1.010^3/ul Monocytes # 0.410^3/ul Eosinophils # 0.210^3/ul Basophils # 0.010^3/ul Nucleated Red Blood Cells # 0.010^3/ul Prothrombin Time 13.1Sec Prothrombin Time Ratio 1.0 INR International Normalized Ratio 0.99 Activated Partial Thromboplast Time 57.5Sec Sodium Level 139mmol/L Potassium Level 4.3mmol/L Chloride Level 99mmol/L Carbon Dioxide Level 32mmol/L Anion Gap 12 Blood Urea Nitrogen 16mg/dl Creatinine 0.52mg/dl Glucose Level 102mg/dl Lactic Acid Level 1.1mmol/L 1.4mmol/L Calcium Level 9.5mg/dl Total Bilirubin 0.1mg/dl Direct Bilirubin 0.00mg/dl Indirect Bilirubin 0.1mg/dl Aspartate Amino Transf (AST/SGOT) 40IU/L Alanine Aminotransferase (ALT/SGPT) 64IU/L Alkaline Phosphatase 199IU/L Troponin I < 0.012ng/ml B-Type Natriuretic Peptide < 11PG/ML Total Protein 7.7g/dl Albumin 4.7g/dl Globulin 3.00g/dl Albumin/Globulin Ratio 1.56 Current Medications Medications (Trade) Dose Ordered Sig/Rosaline Route PRN Reason Start Time Stop Time Status Last Admin Dose Admin Sodium Chloride 2260 ml 2,260 ml BOLUS OVER 2 HOURS STAT IV* 08/27/16 14:17 08/27/16 14:18 DC 08/27/16 15:04 Piperacillin Sod/ Tazobactam Sod (Zosyn 3.375gm/ 100 ml (Pmx)) 100 ml @ 200 mls/hr ONCE STAT IVPB 08/27/16 14:17 08/27/16 14:46 DC 08/27/16 15:04 Acetaminophen/ Hydrocodone Bitart 1 tab 1 tab ONCE ONCE PO 08/27/16 16:00 08/27/16 16:16 DC 08/27/16 16:25 Vancomycin HCl (Vancocin) 250 ml @ 125 mls/hr ONCE IVPB 08/27/16 16:30 08/27/16 18:29 Ondansetron HCl (Zofran Inj) 4 mg ER BRIDGE PRN IV NAUSEA AND/OR VOMITING 08/27/16 17:00 08/28/16 16:59 Acetaminophen (Tylenol Tab) 650 mg ER BRIDGE PRN PO MILD PAIN/FEVER 08/27/16 17:00 08/28/16 16:59 Procedures/MDM Immunocompromise patient secondary to chemotherapy with cellulitis of right upper chest fungating mass and sepsis. Patient had very high heart rate on admission. No fever or white count which can be affected with a septic response in a patient who is immunocompromised and not able to mount proper white count response. Was given 30 cc/kg of IV fluid after which she was still tachycardic with a heart rate about 115. Parents of cellulitis surrounding her fungating mass. She was given Zosyn initially. Vancomycin for full coverage of skin infection. No evidence of cardiac ischemia or congestive heart failure. Evidence for contraction alkalosis with elevated BUN. Etiology of shortness of breath is not clear but was improved with oxygen. Spoke with Dr. James Morris will be getting the patient to [facility]. Dr. Chau is the patient' s oncologist. EKG interpretation: Sinus tachycardia rate 134, normal axis, normal intervals, no ST or T-wave changes concerning for acute ischemia property assessment monitor interpretation: Persistent sinus tachycardia improved with fluid administration. No other arrhythmias Chest x-ray interpretation: I see no acute process, no pneumothorax, no widened mediastinum, no obvious infiltrate, no fractures Care time 33 minutes: This includes treatment of unstable vital signs, sepsis, careful fluid administration, early antibiotic administration, chart review, multiple visits the patient's bedside to reassess status, discussion with patient and admitting doctor, this does not include any billable procedures. Departure Diagnosis: Primary Impression: Sepsis due to cellulitis Additional Impressions: Dyspnea Tumor associated pain Anemia Condition: Serious WHITLEY GUERRERO DO Aug 27, 2016 17:14
[2016-08-27 18:35] LABS: ADD UMIC NO; URINE BILIRUBIN (Dip) NEGATIVE (NEGATIVE); URINE BLOOD (Dip) NEGATIVE (NEGATIVE); URINE COLOR LT. YELLOW (YELLOW); URINE GLUCOSE (Dip) NEGATIVE (NEGATIVE); URINE KETONES (Dip) NEGATIVE (NEGATIVE); URINE LEUKOCYTE ESTERASE (Dip) NEGATIVE (NEGATIVE); URINE NITRITE (Dip) NEGATIVE (NEGATIVE); URINE TOTAL PROTEIN (Dip) NEGATIVE (NEGATIVE); URINE UROBILINOGEN (Dip) 0.2 E.U./dL (0.1-1.0)
[2016-08-27] MEDS ORDERED: ZOLPIDEM 5 MG TAB PO PRN (19:30)
[2016-08-27] MEDS ORDERED: NACL 0.9% 3 ML SYG IV SCH (19:30)
[2016-08-27] MEDS ORDERED: DOCUSATE SODIUM 100 MG CAP PO PRN (19:30)
[2016-08-27] MEDS ORDERED: morphine 2 MG INJ IV PRN (19:30)
[2016-08-27 20:50] VITALS: PULSE 112
[2016-08-27 21:00] VITALS: Ht 160 cm; Wt 72.7 kg
[2016-08-28] VITALS (13 sets, daily range): BP systolic 95–126; BP diastolic 57–80; PULSE 99–119; RESP 16–18
[2016-08-28] MEDS: HYDROCODONE/APAP (5/325) TAB PO PRN ×3 (00:42→19:49)
--- NOTE | 2016-08-28 04:13 | HP ---
DATE OF ADMISSION: 08/27/2016 CHIEF COMPLAINT: Chest pain and shortness of breath. 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 The patient [facility] and is currently receiving chemotherapy. The patient presents with shortness of breath and pain in the chest secondary to the fungating tumor. The patient currently is denying any pain after having received pain medications in the ED. The patient also reports shortness of breath, otherwis e has no complaints. PAST MEDICAL HISTORY: As per HPI. HOME MEDICATIONS: 1. [place]. 2. The patient is also on chemotherapy. ALLERGIES: NO KNOWN DRUG ALLERGIES. FAMILY HISTORY: Denies any history of cancer or heart problems with the family. SOCIAL HISTORY: Denies alcohol, tobacco or drugs. REVIEW OF SYSTEMS: A 12 point review of systems negative except as in HPI. PHYSICAL EXAMINATION: VITAL SIGNS: Temp is 98.5, pulse 112, respiratory rate is 18, BP , saturation 100% on 2 liters . GENERAL: No acute distress, alert and oriented. HEENT: Normocephalic, atraumatic. CHEST: Fungating tumor is noted on the chest wall. Clear to auscultation. CARDIOVASCULAR: Tachycardic. ABDOMEN: Nondistended, nontender, soft. EXTREMITIES: No clubbing, cyanosis or edema. LABORATORY DATA: White count 7.9, hemoglobin 7.7, platelets are 318. Chemistry within normal limit s except for carbon dioxide 32, alk phos is 199. INR is 0.99. UA within normal limits. DIAGNOSTICS: Chest x-ray shows low lung volumes with increased interstitial changes at the lung bas es, likely chronic. ASSESSMENT AND PLAN: 1. Chest pain secondary to chest wall tumor with fungating mass. The patient is currently on chemot herapy. We will consult her oncologist. We will get a palliative care consult. We will treat with pain medications. 2. Shortness of breath secondary to restrictive lung disease from fungating chest wall mass. We wi ll give supplemental oxygen. The patient has no evidence of any pneumonia on chest x-ray. 3. Prophylaxis. Lovenox. Dictated By: ESHA BETTS MD BS/NTS Conf#: [id number] [facility]#: [id number] CC: LUIS FELIPE ALCANTAR MD; ESHA BETTS MD;*[facility]*
[2016-08-28 07:46] LABS: ADD SCAN DIFF NO
[2016-08-28 07:56] LABS: BASOPHILS % 0.6 % (0.0-2.0); EOSINOPHILS # 0.2 10^3/ul (0.0-0.5); HEMATOCRIT 28.4 % (37.0-47.0); LYMPHOCYTES % 29.5 % (15.0-51.0); MEAN CORPUSCULAR HEMOGLOBIN 30.3 pg (29.0-33.0); MEAN CORPUSCULAR HGB CONC 31.7 g/dl (32.0-37.0); MEAN CORPUSCULAR VOLUME 95.6 fl (82.0-101.0); MEAN PLATELET VOLUME 9.9 fl (7.4-10.4); MONOCYTE # 0.3 10^3/ul (0.3-0.9); MONOCYTES % 8.5 % (0.0-11.0); NEUTROPHIL # 1.9 10^3/ul (1.6-7.5); NEUTROPHILS % 54.8 % (39.0-77.0); PLATELET COUNT 261 10^3/UL (140-415); RED BLOOD COUNT 2.97 10^6/ul (4.20-5.40); RED CELL DISTRIBUTION WIDTH 14.4 % (11.5-14.5); WHITE BLOOD COUNT 3.5 10^3/ul (4.8-10.8)
[2016-08-28 08:23] LABS: CALCIUM 9.3 mg/dl (8.4-10.2); CREATININE 0.54 mg/dl (0.44-1.00); MAGNESIUM 1.8 mg/dl (1.7-2.5); POTASSIUM 4.4 mmol/L (3.5-5.1)
[2016-08-28] MEDS: ENOXAPARIN 40 MG/0.4 ML SYG SC SCH (08:49)
[2016-08-28] MEDS ORDERED: LORAZEPAM 1 MG TAB PO SCH (09:00)
[2016-08-28] MEDS ORDERED: BARIUM SULF 2% 450 ML BTL (BERRY SMOOTHIE) PO ONE (09:30)
[2016-08-28] MEDS ORDERED: IOHEXOL 300MG/ML 150 ML BTL ONE (09:38)
[2016-08-28] MEDS ORDERED: SOD CHLORIDE 0.9% 100 ML ONE (09:38)
--- NOTE | 2016-08-28 10:41 | RADRPT ---
PROCEDURE: CT Chest, Abdomen and Pelvis with intravenous contrast CLINICAL INDICATION: Breast cancer, evaluate progression of disease. TECHNIQUE: CT of the chest, abdomen and pelvis was performed on a multidetector scanner following the uncomplicated IV administration of 100 cc of Omnipaque 300. Coronal and sagittal images were re formatted from the axial data set. One or more of the following dose reduction techniques were used : automated exposure control, adjustment of the mA and/or kV according to patient size, use of iter ative reconstruction technique. CTDI = 12.59 mGy. DLP = 839.43 mGy-cm. COMPARISON: CTA chest, 04/14/2016 FINDINGS: ONCOLOGIC FINDINGS Measurable disease with target lesions as follows: None Nonmeasurable disease: 1. Multiple nodules and masses are identified within the right breast and adjacent chest wall, jaya sly increased in size when compared to the prior CT - for example, a medial right breast mass measur es 3.3 cm (3-64), previously 2.7 cm; a midline chest wall mass measures approximately 8.0 x 1.8 cm ( 3-46), previously 7.0 x 1.4 cm. 2. Areas of nodularity and irregular interstitial thickening are identified bilaterally, greatest i n the left upper and right lower lobes, suggestive of lymphangitic carcinomatosis, stable to slightl y increased in extent New Lesions: 1. Multiple new metastatic nodules are identified within right axillary and right lateral chest wal l subcutaneous fat. 2. Indeterminate 6 mm hypodensity is present within the lateral right hepatic lobe (3-87), not defi nitely present on prior CT. Additional comments: Right-sided PICC line is in place. The patient is status post left mastectomy and axillary dissectio n. NON-ONCOLOGIC FINDINGS CT chest: No pleural effusion, pulmonary edema or pneumothorax is identified. The central tracheobronchial tr ee is clear. The heart size is normal. Large pericardial effusion is noted, new when compared to t he prior CT. There is no thoracic aortic aneurysm or dissection. No mediastinal or hilar lymphaden opathy is identified. CT abdomen and pelvis: Gallbladder, biliary tree, pancreas, spleen, adrenal glands and kidneys are unremarkable. No urolit hiasis or obstructive uropathy is identified. The stomach is grossly unremarkable. There is no abd ominal aortic aneurysm or dissection. No retroperitoneal or amna hepatis lymphadenopathy is identi fied. There is no bowel obstruction, free intraperitoneal air or abscess. No diverticulosis, diverticulit is, colitis or appendicitis is seen. Urinary bladder, uterus and adnexa are grossly unremarkable. No pelvic mass, free fluid or lymphadenopathy is identified. The surrounding osseous structures are unremarkable. No osteolytic or osteoblastic lesion is detect ed. IMPRESSION: 1. Large pericardial effusion is noted, new when compared to the prior CT. 2. Multiple masses are again seen within right breast and right anterolateral chest wall, all of wh ich appear increased in size and/or new when compared to the prior CT, compatible with neoplastic pr ogression. 3. Areas of irregular septal thickening and nodularity are again seen in the bilateral lungs, stabl e to slightly increased in extent, suggestive of lymphangitic carcinomatosis. 4. Indeterminate 6 mm hypodensity is seen laterally in the right hepatic lobe, not definitely prese nt on prior CT - new hepatic metastasis is not excluded. Attention on follow-up is recommended. 5. The patient is again noted to be status post left mastectomy and axillary dissection. Right-lobito ed PICC line remains in place. RPTAT: KK .Luis Manuel Maki MD, MD Date Time Electronically viewed and signed by .Luis Manuel Maki MD, on 08/28/2016 10:41 .R/
[2016-08-28] MEDS ORDERED: FUROSEMIDE 40 MG INJ IV SCH (13:00)
--- NOTE | 2016-08-28 13:15 | CONS ---
DATE OF ADMISSION: 08/27/2016 DATE OF CONSULTATION: TYPE OF CONSULTATION: Pulmonary. REASON FOR CONSULTATION: Shortness of breath. Thank you, Dr. Morris, for this consultation. HISTORY OF PRESENT ILLNESS: This is an unfortunate 41-year-old lady with a history of metastatic br east cancer, who came in with central chest discomfort, mild dyspnea and orthopnea. Chest x-ray on admission showed low lung volumes and pulmonary edema. In addition, she has invasive chest wall met astatic breast cancer, which is the likely cause of her central chest discomfort. MEDICATIONS: Per chart. ALLERGIES: NONE. SOCIAL HISTORY: Nonsmoker, no alcohol, no history of drug use. FAMILY HISTORY: Noncontributory. SYSTEMS REVIEW: A 12-point review of systems was negative, other than that mentioned above. PHYSICAL EXAMINATION: GENERAL: Well-nourished, well-developed lady, comfortable at rest, in no acute distress. VITAL SIGNS: Currently afebrile. Pulse is 110, blood pressure 118/69, O2 saturation 96% on 2 L mark anthony al cannula. NECK: Supple. No JVD or lymphadenopathy. CARDIAC EXAM: S1, S2. No added sounds or murmurs. CHEST: Diminished air entry bilaterally. ABDOMEN: Soft, nontender. No guarding or rebound. EXTREMITIES: No cyanosis, clubbing, or edema. NEUROLOGIC: Generalized weakness. LABORATORY: White count 3.5, hemoglobin 9, platelets 261. Chemistry within normal limits. Chest x-ray was reviewed, shows low lung volumes. CT chest shows large pericardial effusion, multip le masses in the right anterior chest wall, irregular septal thickening in both bibasilar lung field s, suggestive of lymphangitic carcinomatosis, possible new hepatic metastasis. IMPRESSION AND PLAN: 1. Progression of metastatic breast cancer, with now likely malignant pericardial effusion, althoug h clinically no evidence of tamponade. 2. 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 3. Possible underlying pulmonary edema. PLAN: 1. Recommend echocardiogram to exclude tamponade and constrictive pericarditis. 2. Consider cardiology consultation. 3. Trial of Lasix. 4. Deep vein thrombosis and gastrointestinal prophylaxis. 5. Hematology/oncology recommendations. Dictated By: TANYA PHAN/TL Conf#: [id number] DID#: [id number]
--- NOTE | 2016-08-28 14:33 | CONS ---
Date/Time of Note Date/Time of Note DATE: 08/28/16 TIME: 14:07 Assessment/Plan Assessment/Plan Chief Complaint/Hosp Course 41 yo female with metastatic her 2 positive breast cancer involving her chest wall, lungs and pericardial effusion. Pt has progressed through multiple lines of chemotherapy. She is currently on Taxol / Herceptin which she has received since May with some improvement in her CA 1503. In May prior to starting Taxol her CA 15-3 was 70 and has trended down to 45 since starting Taxol. The CT C/A/P done as an out patient was compared with a scan done in March and demonstrates progression but this progression may have occurred before Taxol was started. I do however believe Ms Sukh is terminally ill and is nearing the end of her therapeutic options. # Metastatic Breast Cancer -will continue to discuss patient's poor prognosis with her and her family -we will likely make a decision about more chemotherapy as an out patient # Pericardial Effusion -this is likely a slow growing effusion not causing hemodynamic compromise -agree with cardiology consult and echocardiogram to assess cardiac function #Shortness of Breath secondary to pulmonary metastasis -will arrange for home O2 as an out patient Approximately 40 min were spent at patient's bedside and in coordination of her care Problems: Consultation Date/Type/Reason Admit Date/Time Aug 27, 2016 at 16:58 Date of Consultation: Aug 28, 2016 Type of Consultation: oncology Reason for Consultation metastatic her 2 positive breast cancer Referring Provider: ESHA BETTS of Present Illness 41yo male who was diagnosed with ER+/OK+/Her2+ breast cancer initially diagnosed in May of 2009. She underwent chemo/ MRM and radiation therapy and then proceeded with Tamoxifen. Unfortunately in 2014 she recurred to the chest wall and contralateral breast. Pt has since been treated with TDM-1, Herceptin/ Perjeta/Taxotere and was then placed on a clinical trial at [facility] which she progressed through as well. She has progressed through Lapatanib, Cytoxan, Gemzar. In May of this last year patent's sx worsened as her pulmonary mets increased. Patient was not ready to consider hospice. She was thus placed on Taxol/ Herceptin to which she had some clinical response. She felt the chest wall mass and shortness of breath were improving. In addition the CA15-3 was declining. Pt now presents to [facility] with chest discomfort and mild shortness of breath. A CT C/A/P was done to evaluate for disease progression. In addition to showing disease progression, it also demonstrates a large pericardial effusion. Constitutional: diaphoresis, requiring O2 Eyes: no complaints ENT: no complaints Respiratory: cough, pleuritic pain, shortness of breath Cardiovascular: no complaints Gastrointestinal: no complaints Genitourinary: no complaints Musculoskeletal: bone/joint pain Skin: no complaints Neurologic: no complaints Endocrine: no complaints Past Medical History asthma Past Surgical History h/p mastectomy Family History Significant Family History: no pertinent family hx Social History Alcohol Use: none Smoking Status: Never smoker Exam/Review of Systems Vital Signs Vitals Vital Signs Date Time Temp Pulse Resp B/P Pulse Ox O2 Delivery O2 Flow Rate FiO2 08/28/16 12:06 114 08/28/16 11:03 98.3 18 118/69 100 08/28/16 08:15 Nasal Cannula 2.0 Intake and Output 08/27/16 08/27/16 08/28/16 15:00 23:00 07:00 Intake Total 350 ml Balance 350 ml Exam Constitutional: alert, oriented Psych: no complaints Head: normocephalic Eyes: nl conjunctiva ENMT: nl external ears & nose Neck: non-tender, supple Respiratory: clear to auscultation Cardiovascular: nl pulses, regular rate and rhythm Gastrointestinal: soft Musculoskeletal: nl extremities to inspection, nl gait and stance Extremities: normal pulses 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: 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 II-XII 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 Results Result Diagram: 08/28/16 0652 08/28/16 0652 Results 24 hrs Laboratory Tests Test 08/27/16 14:25 08/27/16 16:30 08/27/16 17:35 08/27/16 19:30 White Blood Count 7.9 # Red Blood Count 3.51 L Hemoglobin 10.7 L Hematocrit 32.3 L Mean Corpuscular Volume 92.0 Mean Corpuscular Hemoglobin 30.5 Mean Corpuscular Hemoglobin Concent 33.1 Red Cell Distribution Width 14.3 Platelet Count 318 Mean Platelet Volume 10.0 # Neutrophils % 79.3 H Lymphocytes % 12.3 L Monocytes % 5.6 Eosinophils % 2.2 Basophils % 0.3 Nucleated Red Blood Cells % 0.0 Neutrophils # 6.3 Lymphocytes # 1.0 Monocytes # 0.4 Eosinophils # 0.2 Basophils # 0.0 Nucleated Red Blood Cells # 0.0 Prothrombin Time 13.1 Prothrombin Time Ratio 1.0 INR International Normalized Ratio 0.99 Activated Partial Thromboplast Time 57.5 H Sodium Level 139 Potassium Level 4.3 Chloride Level 99 Carbon Dioxide Level 32 H Anion Gap 12 Blood Urea Nitrogen 16 Creatinine 0.52 Glucose Level 102 Lactic Acid Level 1.1 1.4 1.9 Calcium Level 9.5 Total Bilirubin 0.1 L Direct Bilirubin 0.00 Indirect Bilirubin 0.1 Aspartate Amino Transf (AST/SGOT) 40 Alanine Aminotransferase (ALT/SGPT) 64 Alkaline Phosphatase 199 H Troponin I < 0.012 B-Type Natriuretic Peptide < 11 Total Protein 7.7 Albumin 4.7 Globulin 3.00 Albumin/Globulin Ratio 1.56 Urine Color LT. YELLOW Urine Clarity CLEAR Urine pH 6.0 Urine Specific [place] 1.010 Urine Ketones NEGATIVE Urine Nitrite NEGATIVE Urine Bilirubin NEGATIVE Urine Urobilinogen 0.2 E.U./dL Urine Leukocyte Esterase NEGATIVE Urine Hemoglobin NEGATIVE Urine Glucose NEGATIVE Urine Total Protein NEGATIVE Test 08/28/16 06:52 White Blood Count 3.5 #L Red Blood Count 2.97 L Hemoglobin 9.0 L Hematocrit 28.4 L Mean Corpuscular Volume 95.6 Mean Corpuscular Hemoglobin 30.3 Mean Corpuscular Hemoglobin Concent 31.7 L Red Cell Distribution Width 14.4 Platelet Count 261 Mean Platelet Volume 9.9 Neutrophils % 54.8 Lymphocytes % 29.5 Monocytes % 8.5 Eosinophils % 6.0 Basophils % 0.6 Nucleated Red Blood Cells % 0.0 Neutrophils # 1.9 Lymphocytes # 1.0 Monocytes # 0.3 Eosinophils # 0.2 Basophils # 0.0 Nucleated Red Blood Cells # 0.0 Sodium Level 143 Potassium Level 4.4 Chloride Level 105 Carbon Dioxide Level 29 Anion Gap 13 Blood Urea Nitrogen 14 Creatinine 0.54 Glucose Level 83 Hemoglobin A1c 5.1 Calcium Level 9.3 Phosphorus Level 5.0 H Magnesium Level 1.8 Medications Medications Current Medications Ondansetron HCl (Zofran Inj) 4 mg Q6H PRN IV NAUSEA AND/OR VOMITING; Start 08/27 at 19:30 Acetaminophen (Tylenol Tab) 650 mg Q6H PRN PO PAIN LEVEL 1-3 OR FEVER; Start at 19:30 Acetaminophen/ Hydrocodone Bitart ([place] (5/325)) 1 tab Q6H PRN PO MODERATE PAIN LEVEL 4-6 Last administered on 08/28/16 13:19; Admin Dose 1 TAB; Start 08/27 at 19:30 Morphine Sulfate (morphine) 2 mg Q2 PRN IV SEVERE PAIN LEVEL 7-10; Start at 19:30 Docusate Sodium (Colace) 100 mg Q12H PRN PO CONSTIPATION; Start 08/27/16 at 19: 30 Zolpidem Tartrate (Ambien) 5 mg QHS PRN PO SLEEP; Start 08/27/16 at 19:30 Enoxaparin Sodium (Lovenox) 40 mg DAILY SC Last administered on 08/28/16 08:49 ; Admin Dose 40 MG; Start 08/28/16 at 09:00 Lorazepam (Ativan) 1 mg ONCE PO Last administered on 08/28/16 09:25; Admin Dose 1 MG; Start 08/28/16 at 09:00; Stop 08/28/16 at 18:00 Furosemide (Lasix) 40 mg DAILY IV Last administered on 08/28/16 13:19; Admin Dose 40 MG; Start 08/28/16 at 13:00 LUIS FELIPE ALCANTAR M.D. Aug 28, 2016 14:18
--- NOTE | 2016-08-28 14:46 | PN ---
Date/Time of Note Date/Time of Note DATE: 08/28/16 TIME: 14:43 Assessment/Plan VTE Prophylaxis VTE Prophylaxis Intervention: LMWH Lines/Catheters Urinary Cath still in place: No Assessment/Plan Chief Complaint/Hosp Course 1. Chest pain secondary to metastatic breast cancer with chest wall tumor with fungating mass Continue pain control with [place] and morphine Patient oncologist has consult on the patient CT chest abdomen shows progression of metastatic cancer as well as a pericardial effusion, will consult cardiology 2. 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 Lovenox Problems: Subjective 24 Hr Interval Summary Constitutional: no complaints Exam/Review of Systems Vital Signs Vitals Vital Signs Date Time Temp Pulse Resp B/P Pulse Ox O2 Delivery O2 Flow Rate FiO2 08/28/16 12:06 114 08/28/16 11:03 98.3 18 118/69 100 08/28/16 08:15 Nasal Cannula 2.0 Intake and Output 08/27/16 08/27/16 08/28/16 15:00 23:00 07:00 Intake Total 350 ml Balance 350 ml Exam Constitutional: alert Respiratory: clear to auscultation Cardiovascular: regular rate and rhythm Gastrointestinal: soft, No distended Musculoskeletal: nl extremities to inspection Skin: other (Chest wall mass noted) Results Result Diagram: 08/28/16 0652 08/28/16 0652 Results 24 hrs Laboratory Tests Test 08/27/16 16:30 08/27/16 17:35 08/27/16 19:30 08/28/16 06:52 Lactic Acid Level 1.4 1.9 Urine Color LT. YELLOW Urine Clarity CLEAR Urine pH 6.0 Urine Specific [place] 1.010 Urine Ketones NEGATIVE Urine Nitrite NEGATIVE Urine Bilirubin NEGATIVE Urine Urobilinogen 0.2 E.U./dL Urine Leukocyte Esterase NEGATIVE Urine Hemoglobin NEGATIVE Urine Glucose NEGATIVE Urine Total Protein NEGATIVE White Blood Count 3.5 #L Red Blood Count 2.97 L Hemoglobin 9.0 L Hematocrit 28.4 L Mean Corpuscular Volume 95.6 Mean Corpuscular Hemoglobin 30.3 Mean Corpuscular Hemoglobin Concent 31.7 L Red Cell Distribution Width 14.4 Platelet Count 261 Mean Platelet Volume 9.9 Neutrophils % 54.8 Lymphocytes % 29.5 Monocytes % 8.5 Eosinophils % 6.0 Basophils % 0.6 Nucleated Red Blood Cells % 0.0 Neutrophils # 1.9 Lymphocytes # 1.0 Monocytes # 0.3 Eosinophils # 0.2 Basophils # 0.0 Nucleated Red Blood Cells # 0.0 Sodium Level 143 Potassium Level 4.4 Chloride Level 105 Carbon Dioxide Level 29 Anion Gap 13 Blood Urea Nitrogen 14 Creatinine 0.54 Glucose Level 83 Hemoglobin A1c 5.1 Calcium Level 9.3 Phosphorus Level 5.0 H Magnesium Level 1.8 Medications Medications Current Medications Ondansetron HCl (Zofran Inj) 4 mg Q6H PRN IV NAUSEA AND/OR VOMITING; Start 08/27 at 19:30 Acetaminophen (Tylenol Tab) 650 mg Q6H PRN PO PAIN LEVEL 1-3 OR FEVER; Start at 19:30 Acetaminophen/ Hydrocodone Bitart ([place] (5/325)) 1 tab Q6H PRN PO MODERATE PAIN LEVEL 4-6 Last administered on 08/28/16 13:19; Admin Dose 1 TAB; Start 08/27 at 19:30 Morphine Sulfate (morphine) 2 mg Q2 PRN IV SEVERE PAIN LEVEL 7-10; Start at 19:30 Docusate Sodium (Colace) 100 mg Q12H PRN PO CONSTIPATION; Start 08/27/16 at 19: 30 Zolpidem Tartrate (Ambien) 5 mg QHS PRN PO SLEEP; Start 08/27/16 at 19:30 Enoxaparin Sodium (Lovenox) 40 mg DAILY SC Last administered on 08/28/16 08:49 ; Admin Dose 40 MG; Start 08/28/16 at 09:00 Lorazepam (Ativan) 1 mg ONCE PO Last administered on 08/28/16 09:25; Admin Dose 1 MG; Start 08/28/16 at 09:00; Stop 08/28/16 at 18:00 Furosemide (Lasix) 40 mg DAILY IV Last administered on 08/28/16 13:19; Admin Dose 40 MG; Start 08/28/16 at 13:00 ESHA BETTS Aug 28, 2016 14:46
--- NOTE | 2016-08-28 20:35 | CONS ---
DATE OF ADMISSION: 08/27/2016 DATE OF CONSULTATION: 08/28/2016 TYPE OF CONSULTATION: Cardiology. REASON FOR CONSULTATION: Pericardial effusion. REQUESTING PHYSICIAN: Dr. Morris from the hospitalist service. HISTORY OF PRESENT ILLNESS: Ms. Luz is a 41-year-old female with history of metastatic breast c ancer involving the chest wall and lungs with subsequent restrictive lung disease and recurrent bout s of respiratory failure as well as hypertension. The patient is receiving chemotherapy, is followe d by Dr. Chau. The patient presented with shortness of breath and chest pain thought to be seconda ry to a fungating tumor. Initially upon arrival, temperature 98.5, blood pressure 118/71, pulse 134 , respiratory rate 20, saturating 99%. The patient's labs: White cell count of 7.9, hemoglobin 10. 7, platelet count of 318. Sodium 139, potassium 4.3, creatinine 0.5, BUN 16, AST 40, ALT 64. Tropo alba negative. BNP less than 11. INR 0.99. UA negative. The patient underwent a chest x-ray revea ling low lung volumes, increased interstitial changes in the lung bases, likely chronic. The patien t then had a chest CT revealing a large pericardial effusion; multiple masses are again seen within the right breast and right anterolateral chest wall, all of which appear increased in size and are n ew; areas of irregular supple thickening nodularity; indeterminate 6 mm hypodensity and an abdominop elvic CT that revealed a large pericardial effusion; multiple masses; areas of irregular septal thic kening obviously in the bilateral lungs; status post left mastectomy and axillary dissection. Given these findings, cardiac consultation requested. PAST MEDICAL HISTORY: As above in HPI. MEDICATIONS CURRENTLY IN HOSPITAL: 1. Lasix 40 mg IV daily. 2. Lovenox 40 mg subQ daily. ALLERGIES: NO KNOWN DRUG ALLERGIES. SOCIAL HISTORY: No tobacco, ETOH, illicit drug use. FAMILY HISTORY: No history of sudden cardiac or early CAD. REVIEW OF SYSTEMS: As above in HPI. CONSTITUTIONAL: No fevers, chills. PULMONARY: Mild shortness of breath. CARDIOVASCULAR: Positive chest pain at the site of fungating mass. GASTROINTESTINAL: No vomiting. GENITOURINARY: No hematuria. MUSCULOSKELETAL: No degenerative joint disease. PSYCHIATRIC: No documented psych history. NEUROLOGIC: No documented history of CVA. PHYSICAL EXAMINATION: VITAL SIGNS: Temperature of 98.2, blood pressure most recently 95/57, pulse 115, respiratory rate 1 8, saturating 100%. GENERAL: The patient is alert, awake, complaining of mild shortness of breath. NECK: No jugular venous distention. CHEST: Mildly decreased breath sounds at bases bilaterally. HEART: Tachycardic, regular rhythm. Normal S1, S2. I/ systolic murmur. Nondisplaced PMI. ABDOMEN: Positive bowel sounds, soft. EXTREMITIES: No pitting edema. Pulses 1+ bilaterally at posterior tibial. SKIN: Additionally, chest covered by dressing. LABORATORY DATA: Most recent from today: Sodium 143, potassium 4.4, creatinine 0.54, BUN 14. Whit e cell count 3.5, hemoglobin 9, platelet count of 261. IMAGING STUDIES: As above in HPI. No further imaging studies for my review at this time. ELECTROCARDIOGRAM: Sinus tachycardia, rate of ____ 134, normal axis, normal intervals, low voltage in the limb leads. IMPRESSION: 1. Pericardial effusion, large by CT. Assess significance by echo. 2. Tachycardia consistent with sinus tachycardia. 3. Some low voltage in the limb leads by electrocardiogram concerning for possible significant effu faby but no pulsus alternans. 4. Breast carcinoma, metastatic. 5. Restrictive lung disease. 6. History of hypertension. 7. Anemia. RECOMMENDATIONS: 1. At this time would maintain the patient on telemetry monitoring to follow rhythm and rate contro l closely. 2. Would check a 2D echo to assess significance of effusion seen by CT and need for interventional procedure. 3. Will hold the patient's Lasix at this time to assure that dehydration is not lending to any tach ycardia. 4. Additionally check a TSH to assure that subclinical hyperthyroidism is not contributing to bouts of tachycardia. 5. Continue all other supportive medical care at this time. Thank you for allowing me to take part in the care of this patient. I will continue to follow along very closely with you with further recommendations to be made as the patient progresses through her inpatient hospital clinical course. Dictated By: KALYAN CAMPBELL/TL Conf#: [id number] DID#: [id number] CC: ESHA MORRIS MD;*[facility]*
[2016-08-29] VITALS (9 sets, daily range): BP systolic 101–119; BP diastolic 60–70; PULSE 105–121; RESP 17–18
[2016-08-29] MEDS: ENOXAPARIN 40 MG/0.4 ML SYG SC SCH (08:37)
--- NOTE | 2016-08-29 08:53 | RADRPT ---
Vent Rate: 108 bpm RR Interval: 0 msec TN Interval: 140 msec QRS Duration: 88 msec QT Interval: 322 msec QTC Interval: 431 msec P-R-T [place]: 14 - 13 - 35 degrees Sinus tachycardia Otherwise normal ECG No previous tracing available for comparison Electronically Signed By: Greg Munguia [id number]
--- NOTE | 2016-08-29 09:10 | RADRPT ---
PROCEDURE: XR Chest. CLINICAL INDICATION: pna chf TECHNIQUE: Single frontal view of the chest was obtained. COMPARISON: Chest x-ray from 08/27/2016 FINDINGS: There is stable severe cardiomegaly and mild pulmonary vascular congestion. A right-sided PICC line is again noted, unchanged in position. Likely layering small bilateral pleural effusions are identified as well as a discoid opacity at the right lung base due to subsegmental atelectasis and / or infiltrate. There is a stable retrocardia c opacity due to atelectasis, infiltrate, and / or effusion. Surgical clips are again identified in the left axilla, likely from axillary lymph node dissection. IMPRESSION: No significant interval change. RPTAT: EE Physician Rodney Date Time Electronically viewed and signed by Physician Rodney on 08/29/2016 09:10 RA/
[2016-08-29] MEDS: HYDROCODONE/APAP (5/325) TAB PO PRN (14:52)
--- NOTE | 2016-08-29 15:30 | CONS ---
Date/Time of Note Date/Time of Note DATE: 08/29/16 TIME: 15:23 Assessment/Plan Assessment/Plan Chief Complaint/Hosp Course IMPRESSION: 1. Pericardial effusion, large by CT. Assess significance by echo. 2. Tachycardia consistent with sinus tachycardia. 3. Some low voltage in the limb leads by electrocardiogram concerning for possible significant effusion but no pulsus alternans. 4. Breast carcinoma, metastatic. 5. Restrictive lung disease. 6. History of hypertension. 7. Anemia. 8.PLeural effusions Recc: -Tele -serial ecg's -Continue current medical therapy -will defintively f/u echo after obtaining additional images but prelime appears to have moderate size effusion. Given mass distorting architecture as well as liklihood that effusion is malignant would recc cardiac surgical window -Follow BP/HR closely Problems: Consultation Date/Type/Reason Admit Date/Time Aug 27, 2016 at 16:58 Initial Consult Date 08/28/16 Type of Consultation: Cardiology Reason for Consultation pericardial effusion Referring Provider: ESHA BETTS Exam/Review of Systems Vital Signs Vitals Vital Signs Date Time Temp Pulse Resp B/P Pulse Ox O2 Delivery O2 Flow Rate FiO2 08/29/16 12:10 121 08/29/16 11:50 98.3 18 119/60 100 08/28/16 20:04 Nasal Cannula 2.0 Intake and Output 08/28/16 08/28/16 08/29/16 15:00 23:00 07:00 Intake Total 900 ml 250 ml Balance 900 ml 250 ml Exam Review of Systems: CONSTITUTIONAL: No fevers, chills. PULMONARY: mild sob CARDIOVASCULAR: No chest pain/palpitations GASTROINTESTINAL: No nausea/vomiting. GENITOURINARY: No hematuria/dysuria. MUSCULOSKELETAL: No myagias/arthalgias. PSYCHIATRIC: The patient denies depression. NEUROLOGIC: No weakness Constitutional: alert Psych: no complaints Head: normocephalic ENMT: mucosa pink and moist Neck: jvd (9 cm water), supple Respiratory: diminished breath sounds (at bases/B) Cardiovascular: other (tachycardic, regular rhythm) Gastrointestinal: non-tender, soft Musculoskeletal: muscle tone (normal) Extremities: edema (none) 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: other (No focal deficits) Results Result Diagram: 08/28/16 0652 08/28/16 0652 Medications Medications Current Medications Ondansetron HCl (Zofran Inj) 4 mg Q6H PRN IV NAUSEA AND/OR VOMITING; Start 08/27 at 19:30 Acetaminophen (Tylenol Tab) 650 mg Q6H PRN PO PAIN LEVEL 1-3 OR FEVER; Start at 19:30 Acetaminophen/ Hydrocodone Bitart ([place] (5/325)) 1 tab Q6H PRN PO MODERATE PAIN LEVEL 4-6 Last administered on 08/29/16 14:52; Admin Dose 1 TAB; Start 08/27 at 19:30 Morphine Sulfate (morphine) 2 mg Q2 PRN IV SEVERE PAIN LEVEL 7-10; Start at 19:30 Docusate Sodium (Colace) 100 mg Q12H PRN PO CONSTIPATION; Start 08/27/16 at 19: 30 Zolpidem Tartrate (Ambien) 5 mg QHS PRN PO SLEEP; Start 08/27/16 at 19:30 Enoxaparin Sodium (Lovenox) 40 mg DAILY SC Last administered on 08/29/16 08:37 ; Admin Dose 40 MG; Start 08/28/16 at 09:00 Furosemide (Lasix) 40 mg DAILY IV Last administered on 08/28/16 13:19; Admin Dose 40 MG; Start 08/28/16 at 13:00; Status Future Hold KALYAN VEGA Aug 29, 2016 15:30
--- NOTE | 2016-08-29 15:40 | CONS ---
Date/Time of Note Date/Time of Note DATE: 08/29/16 TIME: 15:39 Consult Date/Type/Reason Admit Date/Time Aug 27, 2016 at 16:58 Initial Consult Date 08/28/16 Type of Consultation: Pulmonary Ordering Provider: ESHA BETTS Subjective Patient doing okay this morning still has mild exertional dyspnea. Blood pressure remains stable. Objective Vital Signs Date Time Temp Pulse Resp B/P Pulse Ox O2 Delivery O2 Flow Rate FiO2 08/29/16 12:10 121 08/29/16 11:50 98.3 18 119/60 100 08/28/16 20:04 Nasal Cannula 2.0 Intake and Output 08/28/16 08/28/16 08/29/16 14:59 22:59 06:59 Intake Total 900 ml 250 ml Balance 900 ml 250 ml Exam PHYSICAL EXAMINATION: GENERAL: Well-nourished, well-developed lady, comfortable at rest, in no acute distress. VITAL SIGNS: as above NECK: Supple. No JVD or lymphadenopathy. CARDIAC EXAM: S1, S2. No added sounds or murmurs. CHEST: Diminished air entry bilaterally. ABDOMEN: Soft, nontender. No guarding or rebound. EXTREMITIES: No cyanosis, clubbing, or edema. NEUROLOGIC: Generalized weakness. Results/Medications Result Diagram: 08/28/16 0652 08/28/16 0652 Medications Current Medications Ondansetron HCl (Zofran Inj) 4 mg Q6H PRN IV NAUSEA AND/OR VOMITING; Start 08/27 at 19:30 Acetaminophen (Tylenol Tab) 650 mg Q6H PRN PO PAIN LEVEL 1-3 OR FEVER; Start at 19:30 Acetaminophen/ Hydrocodone Bitart ([place] (5/325)) 1 tab Q6H PRN PO MODERATE PAIN LEVEL 4-6 Last administered on 08/29/16t 14:52; Admin Dose 1 TAB; Start 08/27 at 19:30 Morphine Sulfate (morphine) 2 mg Q2 PRN IV SEVERE PAIN LEVEL 7-10; Start at 19:30 Docusate Sodium (Colace) 100 mg Q12H PRN PO CONSTIPATION; Start 08/27/16 at 19: 30 Zolpidem Tartrate (Ambien) 5 mg QHS PRN PO SLEEP; Start 08/27/16 at 19:30 Enoxaparin Sodium (Lovenox) 40 mg DAILY SC Last administered on 08/29/16 08:37 ; Admin Dose 40 MG; Start 08/28/16 at 09:00 Furosemide (Lasix) 40 mg DAILY IV Last administered on 08/28/16 13:19; Admin Dose 40 MG; Start 08/28/16 at 13:00; Status Future Hold Assessment/Plan Chief Complaint/Hosp Course IMPRESSION AND PLAN: 1. Progression of metastatic breast cancer, with now likely malignant pericardial effusion, although clinically no evidence of tamponade. 2. 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 3. Possible underlying pulmonary edema. PLAN: 1. Pending echocardiogram results 2. Consider cardiology consultation. 3. Lasix if okay with cardiology, discussed pericardiocentesis versus pericardial window. Agree pericardial window may be more appropriate in the setting of malignant effusion. 4. Deep vein thrombosis and gastrointestinal prophylaxis. 5. Hematology/oncology recommendations. Problems: TANYA RAMOS MD, [facility] Aug 29, 2016 15:40
--- NOTE | 2016-08-29 16:19 | CONS ---
Date/Time of Note Date/Time of Note DATE: 08/29/16 TIME: 16:16 Assessment/Plan Assessment/Plan Chief Complaint/Hosp Course 41 yo female with metastatic her 2 positive breast cancer involving her chest wall, lungs and pericardial effusion. Pt has progressed through multiple lines of chemotherapy. She is currently on Taxol / Herceptin which she has received since May with some improvement in her CA 15-3. In May prior to starting Taxol her CA 15-3 was 70 and has trended down to 45 since starting [address]ol. The CT C/A/P done as an out patient was compared with a scan done in March and demonstrates progression but this progression may have occurred before Taxol was started. I do however believe Ms Sukh is terminally ill and is nearing the end of her therapeutic options. # Metastatic Breast Cancer -will continue to discuss patient's poor prognosis with her and her family -we will likely make a decision about more chemotherapy as an out patient -from an oncology standpoint she can be discharged as long as her home O2 has been arranged for # Pericardial Effusion -this is likely a slow growing effusion not causing hemodynamic compromise -agree with cardiology consult and echocardiogram to assess cardiac function #Shortness of Breath secondary to pulmonary metastasis -will arrange for home O2 as an out patient Approximately 40 min were spent at patient's bedside and in coordination of her care Problems: Consultation Date/Type/Reason Admit Date/Time Aug 27, 2016 at 16:58 Initial Consult Date 08/28/16 Type of Consultation: Oncology Reason for Consultation metastatic breast cancer Referring Provider: ESHA BETTS 24 HR Interval Summary Free Text/Dictation pt still with exertional dyspnea Exam/Review of Systems Vital Signs Vitals Vital Signs Date Time Temp Pulse Resp B/P Pulse Ox O2 Delivery O2 Flow Rate FiO2 08/29/16 16:13 116 08/29/16 15:41 98.3 18 106/66 100 08/28/16 20:04 Nasal Cannula 2.0 Intake and Output 08/28/16 08/28/16 08/29/16 15:00 23:00 07:00 Intake Total 900 ml 250 ml Balance 900 ml 250 ml Exam Constitutional: alert, frail, oriented Head: normocephalic Eyes: nl conjunctiva ENMT: nl external ears & nose Neck: non-tender, supple Respiratory: diminished breath sounds Cardiovascular: regular rate and rhythm Gastrointestinal: soft Musculoskeletal: joint tenderness Results Result Diagram: 08/28/16 0652 08/28/1652 Medications Medications Current Medications Ondansetron HCl (Zofran Inj) 4 mg Q6H PRN IV NAUSEA AND/OR VOMITING; Start 08/27 at 19:30 Acetaminophen (Tylenol Tab) 650 mg Q6H PRN PO PAIN LEVEL 1-3 OR FEVER; Start at 19:30 Acetaminophen/ Hydrocodone Bitart ([place] (5/325)) 1 tab Q6H PRN PO MODERATE PAIN LEVEL 4-6 Last administered on 08/29/16 14:52; Admin Dose 1 TAB; Start 08/27 at 19:30 Morphine Sulfate (morphine) 2 mg Q2 PRN IV SEVERE PAIN LEVEL 7-10; Start at 19:30 Docusate Sodium (Colace) 100 mg Q12H PRN PO CONSTIPATION; Start 08/27/16 at 19: 30 Zolpidem Tartrate (Ambien) 5 mg QHS PRN PO SLEEP; Start 08/27/16 at 19:30 Enoxaparin Sodium (Lovenox) 40 mg DAILY SC Last administered on 08/29/16 08:37 ; Admin Dose 40 MG; Start 08/28/16 at 09:00 Furosemide (Lasix) 40 mg DAILY IV Last administered on 08/28/16 13:19; Admin Dose 40 MG; Start 08/28/16 at 13:00; Status Future Hold LUIS FELIPE ALCANTAR M.D. Aug 29, 2016 16:19
--- NOTE | 2016-08-29 16:36 | PDOCDIS ---
Discharge Instructions CONDITION Patient Condition: Good HOME CARE INSTRUCTIONS: Diet Instructions: Regular ACTIVITY: Activity Restrictions: No Restrictions FOLLOW UP/APPOINTMENTS Appointments FOLLOW UP WITH YOUR PRIMARY CARE PHYSICIAN IN 1-2 WEEKS AND WITH YOUR ONCOLOGIST SCHEDULED ESHA BETTS Aug 29, 2016 16:36
--- NOTE | 2016-08-29 16:59 | DS ---
DATE OF ADMISSION: 08/27/2016 DATE OF DISCHARGE: 08/29/2016 DISCHARGE DIAGNOSES: 1. Chest pain secondary to a fungating breast mass from metastatic breast cancer. Stable with Norc o p.o. 2. Shortness of breath secondary to restrictive lung disease from metastatic breast cancer. Home O 2 has been arranged. 3. Pericardial effusion noted on CT chest. Cardiology consultation appreciated and recommendation is for pericardial window, but the patient is not interested and wants to go home. This was discuss ed between the patient and her oncologist, Dr. Chau. The patient has also made it clear to myself that she would like to go home and does not want any aggressive interventions. HOSPITAL COURSE: The patient is a 41-year-old female with a history of metastatic breast cancer. T he patient does follow up with Dr. Chau of oncology and she is in the process of receiving chemothe rapy, but appears to continue to have progression of her metastatic breast cancer. The patient pres ents with chest pain secondary to a chest wall tumor, with a fungating mass. It showed no evidence of any infection. Pain was controlled with [place]. The patient also is having issues obtaining home O2. She presents with shortness of breath and it was felt that this is secondary to restrictive annette ng disease from metastatic breast cancer. Arrangements were made with the pillowcase folder for the viri ent to receive home O2. Of note, the patient did have a CT of the chest, as well as abdomen. The p atient was found to have a large pericardial effusion, as well as progression of her neoplastic proc ess. Cardiology was consulted and recommendation was for a pericardial window, but once again, the patient did not want any intervention done and she patient wanted to go home. She made this clear t o both her oncologist, Dr. Chau, and she also expressed to myself that she simply wants to go home. The patient was felt to be stable for discharge. On the day of discharge the patient's vitals, la bs, and physical exam were stable. She was tachycardic, but once again she does not want any aggres sive intervention done. On the day of discharge the patient had no acute complaints and questions w ere answered. CONDITION ON DISCHARGE: Stable. DISPOSITION: To home. MEDICATIONS: Patient is to continue her usual home medications. No new medications were prescribed . Home O2 was arranged prior to discharge. FOLLOWUP: Patient is to follow up with her PCP in 1 to [address] Chau of oncology as sc heduled. Greater than 30 minutes was spent coordinating the discharge of this patient. Dictated By: ESHA BETTS MD BS/NTS Conf#: [id number] DID#: [id number]
[2016-08-30 07:28] VITALS: BP 121/56; RESP 18
--- NOTE | 2016-08-31 14:21 | RADRPT ---
Echocardiogram Report Patient Name: MARGARET VIGIL Gender: Female Date: 1975 Study Date: 29-Aug-2016 [place] Elastic Attacher: [facility] Location: [id number] Ref. Physician: ESHA BETTS Quality: Technically Difficult Study Procedures: Transthoracic echocardiogram with complete 2D, M-Mode, and doppler examination. Indications: R/O Pericardial Effusion. 2D/M Mode Doppler Measurement Value Normal Ranges Measurement Value Normal Ranges LVIDd 2D 3.1 3.5 - 5.6 cm AV Peak Az 1.1 m/sec LVIDs 2D 2.3 2.1 - 4.1 cm AV Peak PG 5.3 mmHg LVPWd 2D 1.0 0.6 - 1.1 cm LVOT Peak Az 0.9 m/sec IVSd 2D 1.0 0.6 - 1.1 cm LVOT Peak PG 3.1 mmHg AoR Diam 2D 2.2 2.0 - 3.7 cm EDV 2D 36.4 cm3 ESV 2D 12.9 cm3 LA Dimen 2D 3.3 2.3 - 4.0 cm Findings Left Ventricle: Normal left ventricular systolic function. Normal left ventricular cavity size. Normal left ventricular wall thickness. Ejection fraction is visually estimated at 50 %. Abnormal Diastolic Function. Right Ventricle: Normal right ventricular size. Normal right ventricular systolic function. Left Atrium: The left atrium is normal in size. Right Atrium: The right atrium is normal in size. Mitral Valve: Mild mitral annular calcification. Trace mitral regurgitation. Aortic Valve: Normal appearance of the aortic valve. No significant aortic stenosis or insufficiency. Tricuspid Valve: Tricuspid valve not well visualized. Unable to obtain RVSP due to minimal presence of tricuspid regurgitation. There is trace tricuspid regurgitation. Pericardium: Moderate pericardial effusion. Aorta: Normal aortic root. IVC: Normal size and normal respiratory collapse consistent with normal right atrial pressure. Conclusions 1.Normal left ventricular systolic function. Normal left ventricular cavity size. Normal left ventricular wall thickness. Ejection fraction is visually estimated at 50 %. Abnormal Diastolic Function. 2.Mild mitral annular calcification. Trace mitral regurgitation. 3.Tricuspid valve not well visualized. Unable to obtain RVSP due to minimal presence of tricuspid regurgitation. There is trace tricuspid regurgitation. 4.Moderate pericardial effusion. Electronically Signed By: Gil Michel 31-Aug-2016 14:20:29 -0700 Patient Name: MARGARET VIGIL Study Date: 29-Aug-2016 [id number]
== END 2016-08-29 18:10 | disposition home or self-care (01) | DRG 315 ==
LOC: E/R 13:22 → MS4 16:58
PROVIDERS: ADMIT Internal Medicine; ATTEND Internal Medicine
DX: I31.3 Pericardial effusion (noninflammatory) (principal); C78.00 Secondary malignant neoplasm of unspecified lung; J81.1 Chronic pulmonary edema; C79.89 Secondary malignant neoplasm of other specified sites; C77.9 Secondary and unspecified malignant neoplasm of lymph node, unspecified; C50.911 Malignant neoplasm of unspecified site of right female breast; C50.912 Malignant neoplasm of unspecified site of left female breast; D64.9 Anemia, unspecified; Z17.0 Estrogen receptor positive status [ER+]; R00.0 Tachycardia, unspecified
CPT/HCPCS: 36415; 71010; 71260; 74177; 80048; 80053; 81003; 83036; 83605; 83735; 83880; 84100; 84443; 84484; 85025; 85610; 85730; 87040; 87086; 93005; 93306; 96374; 96375; J1650; J1940; J2543; J3370; J7030; Q9967

== ENCOUNTER 2016-11-08 12:10 | Inpatient (IN) | payer OTHER ==
[~2016-11-08] VITALS: Ht 157.5 cm; Wt 72.9 kg
[2016-11-08] VITALS (25 sets, daily range): BP systolic 78–98; BP diastolic 39–82; PULSE 131–144; RESP 18–19; TEMP 99; Ht 157.5 cm; Wt 72.9 kg
[~2016-11-08 12:10] MED LIST changes: +AMOX1TAB10 PO; +ETOMIDATE 20 MG INJ ONE; +HYDR-902 PO; +LORA-407; +PEN500; +PROPOFOL 200 MG INJ ONE; +ROCURONIUM 50 MG INJ ONE; +[UNRECOGNIZED DRUG - CODE]
[2016-11-08] MEDS ORDERED: ALBUTEROL 0.5% (NEB) 2.5 MG/0.5 ML AMP INH STA (13:01)
[2016-11-08] MEDS ORDERED: IPRATROPIUM (NEB) 0.5 MG/2.5 ML AMP INH STA (13:01)
[2016-11-08 13:38] LABS: BASOPHILS % 0.1 % (0.0-2.0); HEMATOCRIT 31.3 % (37.0-47.0); HEMOGLOBIN 10.3 g/dl (12.0-16.0); LYMPHOCYTES # 0.7 10^3/ul (0.8-2.9); LYMPHOCYTES % 6.7 % (15.0-51.0); MEAN CORPUSCULAR HEMOGLOBIN 27.9 pg (29.0-33.0); MEAN CORPUSCULAR HGB CONC 32.9 g/dl (32.0-37.0); MEAN CORPUSCULAR VOLUME 84.8 fl (82.0-101.0); MEAN PLATELET VOLUME 9.6 fl (7.4-10.4); MONOCYTE # 1.4 10^3/ul (0.3-0.9); MONOCYTES % 14.5 % (0.0-11.0); NEUTROPHILS % 77.9 % (39.0-77.0); NUCLEATED RED BLOOD CELLS # 0.3 10^3/ul (0.0-0.0); NUCLEATED RED BLOOD CELLS% 2.8 /100WBC (0.0-0.0); PLATELET COUNT 314 10^3/UL (140-415); RED BLOOD COUNT 3.69 10^6/ul (4.20-5.40); RED CELL DISTRIBUTION WIDTH 15.9 % (11.5-14.5); WHITE BLOOD COUNT 9.7 10^3/ul (4.8-10.8)
[2016-11-08 13:59] LABS: ALANINE AMINOTRANSFERASE 875 IU/L (13-69); ALBUMIN 4.2 g/dl (3.3-4.9); ALBUMIN/GLOBULIN RATIO 1.13; ALKALINE PHOSPHATASE 565 IU/L (42-121); ANION GAP 17 (8-16); ASPARTATE AMINO TRANSFERASE 703 IU/L (15-46); BILIRUBIN,INDIRECT 0.3 mg/dl (0-1.1); BILIRUBIN,TOTAL 0.3 mg/dl (0.2-1.3); BLOOD UREA NITROGEN 21 mg/dl (7-20); CALCIUM 8.9 mg/dl (8.4-10.2); CARBON DIOXIDE 30 mmol/L (21-31); CHLORIDE 78 mmol/L (97-110); CREATININE 0.56 mg/dl (0.44-1.00); GLUCOSE 129 mg/dl (70-220); POTASSIUM 5.7 mmol/L (3.5-5.1); TOTAL PROTEIN 7.9 g/dl (6.1-8.1)
[2016-11-08] MEDS ORDERED: FUROSEMIDE 40 MG INJ IV ONE (14:00)
--- NOTE | 2016-11-08 14:00 | RADRPT ---
PROCEDURE: XR Chest. CLINICAL INDICATION: Sepsis. History of breast cancer. TECHNIQUE: Single frontal chest x-ray. COMPARISON: 08/28/2016, 08/29/2016 FINDINGS: Low lung volumes are noted. Since the prior study, there has been increase in size of the small to moderate bilateral pleural effusions. There are also hazy and patchy opacities within the right gre ater than left mid to lower lungs. There is no pneumothorax. The heart size is difficult to visual ize due to the overlying pleural effusion and lung opacities. Mediastinal contours are unremarkable. Bones are unchanged without an acute fracture. There are surgical clips overlying the left axilla from postsurgical changes. There is a paper clip overlying the mediastinum to the right of midline which may be outside the patient. RPTAT: QQ IMPRESSION: 1. 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 2. Increased size of the small to moderate bilateral pleural effusions. .Angelina Navarro MD, MD Date Time Electronically viewed and signed by .Angelina Navarro MD, on 11/08/2016 14:00 .T/
[2016-11-08 14:01] LABS: SODIUM 119 mmol/L (135-144)
[2016-11-08 14:03] LABS: INR 1.17; PT RATIO 1.2
[2016-11-08 14:11] LABS: TROPONIN-I < 0.012 ng/ml (0.00-0.12)
[2016-11-08] MEDS ORDERED: HYDR2TAB3 PO (14:20)
[2016-11-08 14:27] LABS: AADO2 Arterial 162.5 mmHg (7.0-24.0); Allen Test ACCEPTAB; Arterial Base Excess 2.9 mmol/L (-3.0-3); Arterial COHb 0.3 % (0.0-3.0); Arterial Fraction of Oxyhgb 98.3 % (93.0-99.0); Arterial HCO3 27.6 mmol/L (22.0-26.0); Arterial MetHb 0.3 % (0.0-1.5); Arterial Total Hemglobin 11.1 g/dl (12.0-18.0); Blood Gas IEPAP 15/5; MODE MASK - BIPAP
--- NOTE | 2016-11-08 14:28 | ERA ---
ER Documentation Chief Complaint Date/Time DATE: 11/08/16 TIME: 14:24 Chief Complaint progressive short of breath for past 3 days, HPI This is a 41-year-old female with history of metastatic breast carcinoma with metastases to the lungs who presents to the emergency room for evaluation of shortness of breath. The patient states that her shortness of breath is gone progressively worse over the past 3 days. She states that she is on chemotherapy and her last chemotherapy was October 17. The patient states her next chemotherapy is scheduled for November 17. She states her shortness of breath is worse with lying flat and nothing is improved. She does have a home nebulizer machine however does not help with her shortness of breath. She does state that she has noticed some swelling in her lower extremities as well. ROS All systems reviewed and are negative except as per history of present illness. Medications Home Meds Reported Medications Hydromorphone Hcl* (Hydromorphone Hcl*) 2 Mg Tablet, 2 MG PO Q6 Y for PAIN, TAB 11/08/16 Hydrocodone/Acetaminophen ([place] 10-325 Tablet) 1 Each Tablet, 1 EACH PO QID Y for PAIN, TAB 08/27/16 Allergies Allergies: Coded Allergies: No Known Allergy (Unverified , 08/27/16) PMhx/Soc History of Surgery: Yes (LEFT MASTECTOMY) Anesthesia Reaction: No Hx 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 Disorder: No Hx Respiratory Disorders: Yes (ASTHMA) Hx Cardiac Disorders: No Hx Psychiatric Problems: No Hx Miscellaneous Medical Probl: Yes (BREAST CA WITH CHEMO) Hx Alcohol Use: No Hx Substance Use: No Hx Tobacco Use: No Physical Exam Vitals Vital Signs Date Time Temp Pulse Resp B/P Pulse Ox O2 Delivery O2 Flow Rate FiO2 11/08/16 13:45 139 100 35 11/08/16 13:12 3.0 11/08/16 13:12 139 30 98 Nasal Cannula 3.0 11/08/16 12:14 98.0 135 26 150/83 98 Physical Exam INITIAL VITAL SIGNS: Reviewed by me GENERAL: The patient is frail-appearing female, moderate respiratory distress HEENT: Pupils equal, round, and reactive to light. EOMI. There is no scleral icterus. NECK: C-spine is soft and supple, there is no meningismus. There is no cervical lymphadenopathy. LUNGS: Coarse breath sounds bilaterally with diffuse rhonchi auscultated in the upper and lower lobe HEART: Tachycardic no murmurs, clicks, rubs or gallops. ABDOMEN: Subcostal retractions, soft, non-tender, non-distended. There are bowel sounds in all four quadrants. No rebound or guarding. EXTREMITIES: 2+ pitting edema in the bilateral lower extremities, no cyanosis NEUROLOGICAL: The patient moves all four extremities with 5/5 strength. Cranial nerves II - XII are intact. Normal gait. Alert and oriented SKIN: There is no apparent rash or petechiae. HEME/LYMPHATIC: There is no evidence of excessive bruising or lymphedema. PSYCHIATRIC: The patient does not appear anxious or depressed. Result Diagram: 11/08/16 1315 11/08/16 1315 Results 24 hrs Laboratory Tests Test 11/08/16 13:15 White Blood Count 9.710^3/ul Red Blood Count 3.6910^6/ul Hemoglobin 10.3g/dl Hematocrit 31.3% Mean Corpuscular Volume 84.8fl Mean Corpuscular Hemoglobin 27.9pg Mean Corpuscular Hemoglobin Concent 32.9g/dl Red Cell Distribution Width 15.9% Platelet Count 28841^3/UL Mean Platelet Volume 9.6fl Neutrophils % 77.9% Lymphocytes % 6.7% Monocytes % 14.5% Eosinophils % 0.0% Basophils % 0.1% Nucleated Red Blood Cells % 2.8/100WBC Neutrophils # (Manual) 810^3/ul Lymphocytes # 0.710^3/ul Monocytes # 1.410^3/ul Eosinophils # 0.010^3/ul Basophils # 0.010^3/ul Nucleated Red Blood Cells # 0.310^3/ul Prothrombin Time 15.0Sec Prothrombin Time Ratio 1.2 INR International Normalized Ratio 1.17 Activated Partial Thromboplast Time 32.0Sec Sodium Level 119mmol/L Potassium Level 5.7mmol/L Chloride Level 78mmol/L Carbon Dioxide Level 30mmol/L Anion Gap 17 Blood Urea Nitrogen 21mg/dl Creatinine 0.56mg/dl Glucose Level 129mg/dl Lactic Acid Level 2.8mmol/L Calcium Level 8.9mg/dl Total Bilirubin 0.3mg/dl Direct Bilirubin 0.00mg/dl Indirect Bilirubin 0.3mg/dl Aspartate Amino Transf (AST/SGOT) 703IU/L Alanine Aminotransferase (ALT/SGPT) 875IU/L Alkaline Phosphatase 565IU/L Troponin I < 0.012ng/ml Total Protein 7.9g/dl Albumin 4.2g/dl Globulin 3.70g/dl Albumin/Globulin Ratio 1.13 Current Medications Medications (Trade) Dose Ordered Sig/Rosaline Route PRN Reason Start Time Stop Time Status Last Admin Dose Admin Albuterol (Proventil 0.5% (Neb)) 15 mg ONCE STAT INH 11/08/16 13:01 11/08/16 13:02 DC 11/08/16 13:09 Ipratropium [place] (Atrovent 0.02% (Neb)) 1 mg ONCE STAT INH 11/08/16 13:01 11/08/16 13:02 DC 11/08/16 13:09 Furosemide 40 mg 40 mg ONCE ONCE IV 11/08/16 14:00 11/08/16 14:01 DC 11/08/16 14:20 Calcium Gluconate/ Sodium Chloride (Ca Gluc/NS) 110 ml @ 110 mls/hr ONCE ONCE IVPB 11/08/16 14:30 11/08/16 15:29 UNV Procedures/MDM EKG: Rate/Rhythm: Sinus tach QRS, ST, T-waves: [No changes consistent w/ acute ischemia] Impression: [No evidence of ischemia or arrhythmia] Chest X-ray 1V Interpreted by me: Soft Tissue: Pulmonary edema Bones: No acute abnormalities Mediastinum/Cardiac Silhouette/Lungs: [No acute abnormalities] This 41-year-old female presents to the ER for evaluation of shortness of breath. When I evaluated this patient she was tachypnea, tachycardic and in moderate respiratory distress. The patient was given a breathing treatment with no relief of her symptoms. She did have subcostal retractions and was extremely tachypneic. The decision was made to place this patient on a BiPAP. She was placed on a BiPAP and is doing much better clinically on the BiPAP. Chest x-ray does show pulmonary edema. Lab work does show hyponatremia with a sodium of 119 which is likely secondary to her cancer. The patient's lactic acid is 2.8 however she has no leukocytosis and she is afebrile at this time. This patient also had a potassium of 5.7, the patient was given Lasix in the emergency room and will be placed in for admission at this time for acute respiratory failure with pulmonary edema. She will be placed on the telemetry floor at this time to the care of Dr. bal. Critical Care: Excluding all billable procedures Time: 33 minutes Treatments/Evaluations: Close monitoring and treatment of unstable vital signs, cardiorespiratory, and neurologic status, while maintaining tight balance of fluid, respiratory, and cardiac interventions. Departure Diagnosis: Primary Impression: Acute respiratory failure Additional Impressions: Pulmonary edema Hyponatremia Hyperkalemia Condition: Stable BRIAN KNIGHT DO Nov 08, 2016 14:27
[2016-11-08] MEDS ORDERED: ONDANSETRON 4 MG INJ IV PRN ×2 (14:30→15:00)
[2016-11-08] MEDS ORDERED: ACETAMINOPHEN 325 MG TAB PO PRN ×2 (14:30→15:00)
[2016-11-08] MEDS ORDERED: morphine 2 MG INJ IV PRN (15:00)
[2016-11-08] MEDS ORDERED: DOCUSATE SODIUM 100 MG CAP PO PRN (15:00)
[2016-11-08] MEDS ORDERED: NACL 0.9% 3 ML SYG IV SCH (15:00)
[2016-11-08] MEDS ORDERED: HYDROmorphONE 2 MG TAB PO PRN (15:00)
[2016-11-08] MEDS ORDERED: LORAZEPAM 2 MG INJ IV ONE (15:00)
[2016-11-08] MEDS ORDERED: NITROGLYCERIN (SL) 0.4 MG TAB SL PRN (15:00)
[2016-11-08] MEDS ORDERED: MAGNESIUM HYDROXIDE 30ML CUP PO PRN (15:00)
[2016-11-08] MEDS ORDERED: HYDROCODONE/APAP (5/325) TAB PO PRN (15:00)
[2016-11-08] MEDS ORDERED: NA PHOSPHATE/BIPHOS 133 ML ENEMA PR PRN (15:00)
[2016-11-08] MEDS ORDERED: LORAZEPAM 2 MG INJ IV PRN (15:00)
[2016-11-08] MEDS ORDERED: hydrALAzine 20 MG INJ IV PRN (15:00)
[2016-11-08] MEDS ORDERED: HYDROCODONE/APAP (10/325) TAB PO PRN (15:00)
[2016-11-08] MEDS ORDERED: ALBUTEROL/IPRATROPIUM (NEB) 3 ML AMP HHN PRN (15:00)
[2016-11-08] MEDS ORDERED: CALCIUM GLUCONATE 10% 1 GM in SOD CHLORIDE 0.9% 100 ML IVPB ONE (15:00)
--- NOTE | 2016-11-08 15:07 | HP ---
Date/Time of Note Date/Time of Note DATE: 11/08/16 TIME: 15:01 Assessment/Plan VTE Prophylaxis VTE Prophylaxis Intervention: heparin Assessment/Plan Chief Complaint/Hosp Course Assessment and plan: 41-year-old female with history of metastatic breast carcinoma with metastases to the lungs who presents to the emergency room for evaluation of shortness of breath with signs of fluid overload, lactic acidosis , hyponatremia, sepsis. 1. Sepsis: Likely secondary to upper respiratory infection along with fluid overload. Patient lactic acid 2.8 -Admit patient, Tylenol as needed. Broad-spectrum antibiotics, IV fluids, trend lactic acid. Check A1c, TSH, lipid panel 2. Metastatic breast cancer: To the lung. Prior history mastectomy in the past as well. -We will get hematology consult, IV fluids -We will also get palliative care consult 3. Severe hyponatremia: Continue monitor for now, salt tablets, IV fluids, follow-up BMP in the a.m. 4. Respiratory distress: Likely secondary to fluid overload. Possible pneumonia as well -Continue BiPAP as needed, follow-up ABG, pulmonary consult, broad-spectrum antibiotics, monitor respiratory status very carefully Problems: HPI/ROS Admit Date/Time Admit Date/Time Hx of Present Illness 41-year-old female past medical history of metastatic breast carcinoma with metastases to the lungs, asthma, who presents to the emergency room for evaluation of shortness of breath. The patient states that her shortness of breath is gone progressively worse over the past 3 days. Patient is presently on chemotherapy and her last chemotherapy was October 17. The patient states her next chemotherapy is scheduled for November 17. She states her shortness of breath is worse with lying flat and nothing is improved. She does have a home nebulizer machine however does not help with her shortness of breath. She does state that she has noticed some swelling in her lower extremities as well. When she came into the emergency room today she had sodium levels of 119, and lactic acid 2.8. She was placed on BiPAP and is still presently on that right now. No upper or lower GI bleeding, nausea vomiting, diarrhea or constipation. PMH/Family/Social Past Surgical History Past Surgical Hx: other (Mastectomy) Family History Significant Family History: no pertinent family hx Social History Alcohol Use: none Smoking Status: Never smoker Drug Use: none Exam/Review of Systems Vital Signs Vitals Vital Signs Date Time Temp Pulse Resp B/P Pulse Ox O2 Delivery O2 Flow Rate FiO2 11/08/16 13:45 139 100 35 11/08/16 13:12 3.0 11/08/16 13:12 30 Nasal Cannula 11/08/16 12:14 98.0 150/83 Exam Exam GENERAL: The patient is frail-appearing female, moderate respiratory distress, presently on BiPAP HEENT: Pupils equal, round, and reactive to light. EOMI. There is no scleral icterus. NECK: C-spine is soft and supple, there is no meningismus. There is no cervical lymphadenopathy. LUNGS: Coarse breath sounds bilaterally with diffuse rhonchi auscultated in the upper and lower lobe HEART: Tachycardic no murmurs, clicks, rubs or gallops. ABDOMEN: soft, non-tender, non-distended. There are bowel sounds in all four quadrants. No rebound or guarding. EXTREMITIES: 1+ pitting edema in the bilateral lower extremities, no cyanosis NEUROLOGICAL: The patient moves all four extremities with 5/5 strength. Cranial nerves II - XII are intact. Normal gait. Alert and oriented SKIN: There is no apparent rash or petechiae. PSYCHIATRIC: The patient does not appear anxious or depressed. Labs Result Diagram: 11/08/16 1315 11/08/16 1315 Medications Medications Current Medications Calcium Gluconate/ Sodium Chloride (Ca Gluc/NS) 110 ml @ 110 mls/hr ONCE ONCE IVPB ; Start 11/08/16 at 15:00; Stop 11/08/16 at 15:59 Lorazepam (Ativan) 1 mg ONCE ONCE IV Last administered on 11/08/16t 14:48; Admin Dose 1 MG; Start 11/08/16 at 15:00; Stop 11/08/16 at 15:01 Ondansetron HCl (Zofran Inj) 4 mg Q6H PRN IV NAUSEA AND/OR VOMITING; Start at 15:00; Status UNV Acetaminophen (Tylenol Tab) 650 mg Q6H PRN PO PAIN LEVEL 1-3 OR FEVER; Start at 15:00; Status UNV Acetaminophen/ Hydrocodone Bitart ([place] (5/325)) 1 tab Q6H PRN PO MODERATE PAIN LEVEL 4-6; Start 11/08/16 at 15:00; Status UNV Morphine Sulfate (morphine) 2 mg Q4H PRN IV SEVERE PAIN LEVEL 7-10; Start 11/08 at 15:00; Status UNV Docusate Sodium (Colace) 100 mg Q12H PRN PO CONSTIPATION; Start 11/08/16 at 15: 00; Status UNV Magnesium Hydroxide (Milk Of Mag) 30 ml DAILY PRN PO CONSTIPATION; Start at 15:00; Status UNV Sodium Biphosphate/ Sodium Phosphate (Fleet Enema) 133 ml DAILY PRN [place] CONSTIPATION; Start 11/08/16 at 15:00; Status UNV Pantoprazole (Protonix Tab) 40 mg DAILY@06 PO ; Start 11/09/16 at 06:00; Status UNV Heparin Sodium (Porcine) (Heparin (5000 Units/0.5 ml)) 5,000 unit Q8 SC ; Start 11/08/16 at 22:00; Status UNV Lorazepam 0.5 mg 0.5 mg Q6H PRN IV ANXIETY; Start 11/08/16 at 15:00; Status UNV Sodium Chloride 1,000 ml @ 100 mls/hr Q10H IV ; Start 11/08/16 at 14:52; Status UNV Levofloxacin/ Dextrose (Levaquin 750 Mg/ D5W 150 ml (Pmx)) 150 ml @ 100 mls/hr DAILY IVPB ; Start 11/09/16 at 09:00; Status UNV Hydralazine HCl (Apresoline) 10 mg Q6H PRN IV ELEVATED BLOOD PRESSURE; Start at 15:00; Status UNV Nitroglycerin (Nitroglycerin (Sl Tab) 0.4 Mg) 1 tab Q5M PRN SL ANGINA; Start at 15:00; Status UNV Acetaminophen/ Hydrocodone Bitart ([place] (10/325)) 1 tab QID PRN PO PAIN; Start 11/08/16 at 15:00; Status UNV Hydromorphone HCl (Dilaudid) 2 mg Q6 PRN PO PAIN; Start 11/08/16 at 15:00; Status UNV ANYELY MAR Nov 08, 2016 15:06
[2016-11-08] MEDS ORDERED: ROCURONIUM 50 MG INJ IV STA (15:49)
[2016-11-08] MEDS ORDERED: PROPOFOL 100 ML IV STA (15:49)
[2016-11-08] MEDS ORDERED: ETOMIDATE 20 MG INJ IV STA (15:49)
[2016-11-08] MEDS ORDERED: PROPOFOL 100 ML ONE (15:49)
[2016-11-08] MEDS ORDERED: LEVOFLOXACIN 750MG/D5W (PMX) 150 ML IVPB SCH (16:00)
[2016-11-08] MEDS: SOD CHLORIDE 0.9% 1,000 ML IV SCH ×2 (16:09→20:09)
--- NOTE | 2016-11-08 16:33 | EN ---
Date/Time of Note Date/Time of Note DATE: 11/08/16 TIME: 16:32 ER Progress Note This patient began to decompensate on the BiPAP, she was extremely agitated and tachypnea, I did give this patient 1 mg of Ativan however she continued to have persistent tachypnea and respiratory distress. Given this patient's tachypnea and impending respiratory failure the decision was made to intubate this patient for impending respiratory failure. The patient was intubated without difficulty. Please see intubation note. This patient will be placed in the intensive care unit at this time and the admitting physician has been notified. Endotracheal Intubation by me: Pre assessment performed. See preceding note for details. Pre-oxygenation performed with 100% oxygen RSI: Performed w/o complication or hypoxic events. Medications as ordered. Blade: [Mac 4] ET Tube: 7.5 cm Depth: 21 cm at the lip Intubation confirmed by colorimetric CO2, equal breath sounds, quiet over the stomach. Chest X-ray 1V Interpreted by me: 3 cm above the meghan ET tube. Normal soft tissue, No pneumothorax. BRIAN KNIGHT DO Nov 08, 2016 16:33
[2016-11-08 16:44] LABS: ADD UMIC NO; UR ASCORBIC ACID NEGATIVE (NEGATIVE); UR BILIRUBIN (Dip) NEGATIVE (NEGATIVE); UR BLOOD (Dip) NEGATIVE (NEGATIVE); UR CLARITY CLEAR (CLEAR); UR COLOR YELLOW (YELLOW); UR GLUCOSE (Dip) NEGATIVE (NEGATIVE); UR KETONES (Dip) NEGATIVE (NEGATIVE); UR LEUKOCYTE ESTERASE (Dip) NEGATIVE Leu/ul (NEGATIVE); UR NITRITE (Dip) NEGATIVE (NEGATIVE); UR SPECIFIC GRAVITY (Dip) 1.009 (1.003-1.030); UR TOTAL PROTEIN (Dip) NEGATIVE (NEGATIVE); UR UROBILINOGEN (Dip) NEGATIVE (NEGATIVE)
--- NOTE | 2016-11-08 16:45 | RADRPT ---
PROCEDURE: XR Chest. CLINICAL INDICATION: Post intubation TECHNIQUE: Single frontal chest x-ray. COMPARISON: Same day radiographs FINDINGS: The endotracheal tube is about 2.3 cm above the meghan. Low lung volumes are again noted with incre ased hazy and patchy opacities within the bilateral lungs since the prior study. There is a round o pacity overlying the right mid to lower lung which appears new or more distinct since the prior stud y. There are small to moderate bilateral pleural effusions. There is no pneumothorax. The heart ap pears enlarged although limited in evaluation due to the opacities. No acute fractures are visualize d. RPTAT: QQ IMPRESSION: 1. Endotracheal tube about 2.3 cm above the meghan. 2. Hypo expansion with increased bilateral pulmonary opacities which may be from infection and/or e simi with underlying lymphangitic carcinomatosis. New round opacity within the right [id number] annette ng of uncertain etiology and may be from atelectasis, infection, or underlying mass more prominent o n this study; a follow-up CT chest may be helpful for additional evaluation if clinically indicated. 3. Small to moderate bilateral pleural effusions. .Angelina Navarro MD, MD Date Time Electronically viewed and signed by .Angelina Navarro MD, MD on 11/08/2016 16:45 .T/
[2016-11-08 18:42] LABS: AADO2 Arterial 311.5 mmHg (7.0-24.0); Allen Test ACCEPTAB; Arterial Base Excess -0.5 mmol/L (-3.0-3); Arterial COHb 0.3 % (0.0-3.0); Arterial Fraction of Oxyhgb 98.9 % (93.0-99.0); Arterial MetHb 0.3 % (0.0-1.5); Arterial Total Hemglobin 9.8 g/dl (12.0-18.0); MODE VENT - AC
[2016-11-08] MEDS ORDERED: SOD CHLORIDE 0.9% 1,000 ML IV ONE (20:00)
[2016-11-08] MEDS: SODIUM CHLORIDE 1 GM TAB PO SCH (21:17)
[2016-11-08] MEDS: PROPOFOL 100 ML IV SCH (21:17)
[2016-11-08] MEDS: HEPARIN 5,000 UNIT/0.5 ML VIAL SC SCH (21:22)
[2016-11-09] VITALS (95 sets, daily range): BP systolic 62–106; BP diastolic 26–88; PULSE 105–145; RESP 0–40
[2016-11-09 00:11] LABS: AADO2 Arterial 171.1 mmHg (7.0-24.0); Allen Test ACCEPTAB; Arterial Base Excess -1.5 mmol/L (-3.0-3); Arterial COHb 0.2 % (0.0-3.0); Arterial Fraction of Oxyhgb 98.3 % (93.0-99.0); Arterial HCO3 21.8 mmol/L (22.0-26.0); Arterial MetHb 0.2 % (0.0-1.5); Arterial Total Hemglobin 10.1 g/dl (12.0-18.0); Blood Gas Mean Airway Pressure 12; MODE VENT - AC
[2016-11-09] MEDS ORDERED: SOD CHLORIDE 0.9% 1,000 ML IV ONE (03:00)
[2016-11-09] MEDS: PROPOFOL 100 ML IV SCH ×4 (03:27→23:30)
[2016-11-09] MEDS: PANTOPRAZOLE 40 MG INJ IV SCH (05:33)
[2016-11-09] MEDS: HEPARIN 5,000 UNIT/0.5 ML VIAL SC SCH ×2 (05:38→20:33)
[2016-11-09] MEDS ORDERED: PANTOPRAZOLE (EC) 40 MG TAB PO SCH (06:00)
[2016-11-09 06:10] LABS: ABNORMAL IP MESSAGE 1; BASOPHILS % 0.1 % (0.0-2.0); HEMATOCRIT 25.8 % (37.0-47.0); HEMOGLOBIN 8.6 g/dl (12.0-16.0); LYMPHOCYTES # 0.9 10^3/ul (0.8-2.9); LYMPHOCYTES % 8.6 % (15.0-51.0); MEAN CORPUSCULAR HEMOGLOBIN 28.4 pg (29.0-33.0); MEAN CORPUSCULAR HGB CONC 33.3 g/dl (32.0-37.0); MEAN CORPUSCULAR VOLUME 85.1 fl (82.0-101.0); MEAN PLATELET VOLUME 10.1 fl (7.4-10.4); MONOCYTE # 1.8 10^3/ul (0.3-0.9); MONOCYTES % 16.7 % (0.0-11.0); NEUTROPHILS % 71.9 % (39.0-77.0); NUCLEATED RED BLOOD CELLS # 0.8 10^3/ul (0.0-0.0); PLATELET COUNT 247 10^3/UL (140-415); RED BLOOD COUNT 3.03 10^6/ul (4.20-5.40); RED CELL DISTRIBUTION WIDTH 16.5 % (11.5-14.5)
[2016-11-09 06:29] LABS: ALBUMIN 2.8 g/dl (3.3-4.9); BILIRUBIN,INDIRECT 0.2 mg/dl (0-1.1); BILIRUBIN,TOTAL 0.2 mg/dl (0.2-1.3); TOTAL PROTEIN 5.6 g/dl (6.1-8.1)
[2016-11-09 06:35] LABS: CALCIUM 7.7 mg/dl (8.4-10.2); CHOL/HDL RATIO 3.5 RATIO; CHOLESTEROL 84 mg/dl (100-200); CREATININE 1.11 mg/dl (0.44-1.00); HDL CHOLESTEROL 24 mg/dl (34-88); MAGNESIUM 1.7 mg/dl (1.7-2.5); PHOSPHORUS 4.1 mg/dl (2.5-4.9); POTASSIUM 5.7 mmol/L (3.5-5.1)
[2016-11-09 06:46] LABS: TRIGLYCERIDES 560 mg/dl (0-149)
[2016-11-09 06:49] LABS: POSITIVE DIFF @See below
[2016-11-09] MEDS: SOD CHLORIDE 0.9% 1,000 ML IV SCH ×2 (07:45→18:07)
[2016-11-09] MEDS ORDERED: NA POLYST SULFON 15 GM/60 ML BTL PO ONE (09:30)
[2016-11-09] MEDS ORDERED: VANCOMYCIN IV PER PHARMACY XX SCH (09:30)
--- NOTE | 2016-11-09 09:37 | CONS ---
Date/Time of Note Date/Time of Note DATE: 11/09/16 TIME: 09:33 Assessment/Plan Assessment/Plan Additional Assessment/Plan Chest x-ray was reviewed from yesterday which is showing extensive bilateral infiltrates as well as pulmonary edema. Current ventilator settings are AC of 18, tidal volume 450, PEEP of 5, 40% FiO2. Patient will is on Levophed at 16 mics per minute. Assessment and recommendations; 1. Patient admitted with severe sepsis source likely is a skin infection involving the right anterior chest wall from prior mastectomy site. 2. Pulmonary edema. 3. Difficult to rule out superimposed pneumonia. 4. Widely metastatic breast cancer. Continue current supportive care. Prognosis is poor. Obtain follow-up chest x- ray. Consultation Date/Type/Reason Admit Date/Time Date of Consultation: Nov 09, 2016 Type of Consultation: Pulmonary/critical care Reason for Consultation Pulmonary consultation requested for evaluation of respiratory failure. History of present illness; vision is a 41-year-old lady who was brought into the emergency room yesterday with a few days history of shortness of breath. Upon evaluation patient was found to be in respiratory failure with severe pulmonary edema and bilateral pneumonia as well as extensive infection involving the right chest wall from prior mastectomy site. The patient had to be intubated and transferred to ICU. By the time I saw the patient the patient is orally intubated sedated and did not appear to be in any distress. Patient also has been adequately fluid resuscitated and is now requiring Levophed for blood pressure maintenance. History was obtained from medical records as well as from patient's niece who is currently present in the room. Past medical history; 1. Patient with history of metastatic breast cancer. 2. History of mastectomy on the right side. Medications; reviewed. Allergies; none. Social history; patient never smoked. No history of alcohol or drug abuse. Family history; she is single, she has 2 children. Occupational history; patient is on disability. Review of systems; unable to be obtained. General exam; young woman, orally intubated, sedated, currently in no distress. Past Surgical History Past Surgical Hx: other (Mastectomy) Social History Alcohol Use: none Smoking Status: Unknown if ever smoked Drug Use: none Exam/Review of Systems Vital Signs Vitals Vital Signs Date Time Temp Pulse Resp B/P Pulse Ox O2 Delivery O2 Flow Rate FiO2 11/09/16 09:00 126 20 95/74 100 Mechanical Ventilator 11/09/16 08:00 99.2 11/09/16 08:00 40 11/08/16 13:12 3.0 Intake and Output 11/08/16 11/08/16 11/09/16 15:00 23:00 07:00 Intake Total 1641.94 ml 1851.0 ml Output Total 585 ml 80 ml Balance 1056.94 ml 1771.0 ml Exam HEENT exam; supple neck, no JVD. No lymphadenopathy. Midline trachea. No thyromegaly. Pupils are midsize and reactive to light. Orally intubated. Patient has fair dentition. Neck Chest exam; diminished breath sounds throughout. S1-S2 audible, no murmurs. Regular rhythm. There is extensive skin infection involving the right anterior chest wall. Abdomen exam; soft, no organomegaly. Bowel sounds are sluggish. No distention. Extremity exam; trace edema. 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 Results Result Diagram: 11/09/16 0530 11/09/16 0530 Results 24 hrs Laboratory Tests Test 11/08/16 13:00 11/08/16 13:15 11/08/16 14:02 11/08/16 15:20 B-Type Natriuretic Peptide 305 H White Blood Count 9.7 # Red Blood Count 3.69 #L Hemoglobin 10.3 L Hematocrit 31.3 L Mean Corpuscular Volume 84.8 Mean Corpuscular Hemoglobin 27.9 L Mean Corpuscular Hemoglobin Concent 32.9 Red Cell Distribution Width 15.9 H Platelet Count 314 # Mean Platelet Volume 9.6 Neutrophils % 77.9 H Lymphocytes % 6.7 L Monocytes % 14.5 H Eosinophils % 0.0 Basophils % 0.1 Nucleated Red Blood Cells % 2.8 H Neutrophils # (Manual) 8 H Lymphocytes # 0.7 L Monocytes # 1.4 H Eosinophils # 0.0 Basophils # 0.0 Nucleated Red Blood Cells # 0.3 H Prothrombin Time 15.0 H Prothrombin Time Ratio 1.2 INR International Normalized Ratio 1.17 Activated Partial Thromboplast Time 32.0 Sodium Level 119 *L Potassium Level 5.7 H Chloride Level 78 L Carbon Dioxide Level 30 Anion Gap 17 H Blood Urea Nitrogen 21 H Creatinine 0.56 Glucose Level 129 Lactic Acid Level 2.8 *H 4.5 *H Calcium Level 8.9 Total Bilirubin 0.3 Direct Bilirubin 0.00 Indirect Bilirubin 0.3 Aspartate Amino Transf (AST/SGOT) 703 H Alanine Aminotransferase (ALT/SGPT) 875 H Alkaline Phosphatase 565 H Troponin I < 0.012 Total Protein 7.9 Albumin 4.2 Globulin 3.70 H Albumin/Globulin Ratio 1.13 Free Thyroxine 1.32 Blood Gas Specimen Source Blood arterial Arterial Blood Date Drawn 11/08/2016 2:20:33 PM Arterial Blood pH (Temp corrected) 7.426 Arterial Blood pCO2 (Temp correct) 42.9 Arterial Blood pO2 (Temp corrected) 145.7 H Arterial Blood HCO3 27.6 H Arterial Blood Base Excess 2.9 Arterial Blood Oxygen Saturation 98.9 H Derick Test ACCEPTAB Arterial Blood Gas Puncture Site Right Radial Arterial Blood Carboxyhemoglobin 0.3 Arterial Blood Methemoglobin 0.3 Blood Gas A-a O2 Differential 162.5 H Oxyhemoglobin Percent 98.3 Total Hemoglobin 11.1 L Blood Gas Temperature 37.0 Blood Gas Respiration Rate 16.0 Blood Gas Actual Respiration Rate 34 Blood Gas Modality MASK - BIPAP FiO2 50.0 Blood Gas IPAP/EPAP Ratio 04/08 Blood Gas Notified Whom CW Blood Gas Notified Time 11/08/2016 2:26:42 PM Test 11/08/16 15:49 11/08/16 16:15 11/08/16 18:43 11/08/16 23:30 Blood Gas Specimen Source Blood arterial Blood arterial Arterial Blood Date Drawn 11/08/2016 6:32:30 PM 11/08/2016 11:56:39 PM Arterial Blood pH (Temp corrected) 7.457 H 7.453 H Arterial Blood pCO2 (Temp correct) 33.3 L 31.9 L Arterial Blood pO2 (Temp corrected) 368.2 H 149.5 H Arterial Blood HCO3 23.0 21.8 L Arterial Blood Base Excess -0.5 -1.5 Arterial Blood Oxygen Saturation 99.5 H 98.7 H Derick Test ACCEPTAB ACCEPTAB Arterial Blood Gas Puncture Site Right Radial Right Radial Arterial Blood Carboxyhemoglobin 0.3 0.2 Arterial Blood Methemoglobin 0.3 0.2 Blood Gas A-a O2 Differential 311.5 H 171.1 H Oxyhemoglobin Percent 98.9 98.3 Total Hemoglobin 9.8 L 10.1 L Blood Gas Temperature 37.0 37.0 Blood Gas Respiration Rate 18.0 18.0 Blood Gas Actual Respiration Rate 18 18 Blood Gas Modality VENT - AC VENT - AC FiO2 100.0 50.0 Blood Gas Tidal Volume 450.0 450.0 Blood Gas Notified Whom ROSALBA MILTON JARETT Blood Gas Notified Time 11/08/2016 6:42:24 PM 11/09/2016 12:09:14 AM Urine Color YELLOW Urine Clarity CLEAR Urine pH 6.0 Urine Specific Hines 1.009 Urine Ketones NEGATIVE Urine Nitrite NEGATIVE Urine Bilirubin NEGATIVE Urine Urobilinogen NEGATIVE Urine Leukocyte Esterase NEGATIVE Urine Hemoglobin NEGATIVE Urine Glucose NEGATIVE Urine Total Protein NEGATIVE Lactic Acid Level 4.9 *H Blood Gas Mean Airway Pressure 12 Blood Gas Low PEEP Setting 5.0 Blood Gas Inspiratory Pressure 31.0 Test 11/09/16 01:00 11/09/16 05:30 Lactic Acid Level 3.2 *H 2.6 *H White Blood Count 11.0 H Red Blood Count 3.03 L Hemoglobin 8.6 L Hematocrit 25.8 L Mean Corpuscular Volume 85.1 Mean Corpuscular Hemoglobin 28.4 L Mean Corpuscular Hemoglobin Concent 33.3 Red Cell Distribution Width 16.5 H Platelet Count 247 # Mean Platelet Volume 10.1 Neutrophils % 71.9 Lymphocytes % 8.6 L Monocytes % 16.7 H Eosinophils % 0.0 Basophils % 0.1 Nucleated Red Blood Cells % 7.0 H Neutrophils # (Manual) 8 H Lymphocytes # 0.9 Monocytes # 1.8 H Eosinophils # 0.0 Basophils # 0.0 Nucleated Red Blood Cells # 0.8 H Sodium Level 122 L Potassium Level 5.7 H Chloride Level 83 L Carbon Dioxide Level 25 Anion Gap 20 H Blood Urea Nitrogen 31 H Creatinine 1.11 H Glucose Level 104 Hemoglobin A1c 5.5 Calcium Level 7.7 L Phosphorus Level 4.1 Magnesium Level 1.7 Total Bilirubin 0.2 Direct Bilirubin 0.00 Indirect Bilirubin 0.2 Aspartate Amino Transf (AST/SGOT) Alanine Aminotransferase (ALT/SGPT) 2867 H Alkaline Phosphatase 367 H Total Protein 5.6 #L Albumin 2.8 #L Triglycerides Level 560 H Cholesterol Level 84 L LDL Cholesterol, Calculated HDL Cholesterol 24 L Cholesterol/HDL Ratio 3.5 Thyroid Stimulating Hormone (TSH) 4.550 Medications Medications Current Medications Ondansetron HCl (Zofran Inj) 4 mg Q6H PRN IV NAUSEA AND/OR VOMITING; Start at 15:00 Acetaminophen (Tylenol Tab) 650 mg Q6H PRN PO PAIN LEVEL 1-3 OR FEVER; Start at 15:00 Acetaminophen/ Hydrocodone Bitart ([place] (5/325)) 1 tab Q6H PRN PO MODERATE PAIN LEVEL 4-6; Start 11/08/16 at 15:00 Morphine Sulfate (morphine) 2 mg Q4H PRN IV SEVERE PAIN LEVEL 7-10; Start 11/08 at 15:00 Docusate Sodium (Colace) 100 mg Q12H PRN PO CONSTIPATION; Start 11/08/16 at 15: 00 Magnesium Hydroxide (Milk Of Mag) 30 ml DAILY PRN PO CONSTIPATION; Start at 15:00 Sodium Biphosphate/ Sodium Phosphate (Fleet Enema) 133 ml DAILY PRN [place] CONSTIPATION; Start 11/08/16 at 15:00 Lorazepam 0.5 mg 0.5 mg Q6H PRN IV ANXIETY; Start 11/08/16 at 15:00 Sodium Chloride (NS) 1,000 ml @ 150 mls/hr Q6H40M IV Last administered on 11/09 07:45; Admin Dose 100 MLS/HR; Start 11/08/16 at 14:52 Hydralazine HCl (Apresoline) 10 mg Q6H PRN IV ELEVATED BLOOD PRESSURE; Start at 15:00 Nitroglycerin (Nitroglycerin (Sl Tab) 0.4 Mg) 1 tab Q5M PRN SL ANGINA; Start at 15:00 Acetaminophen/ Hydrocodone Bitart ([place] (10/325)) 1 tab QID PRN PO PAIN; Start 11/08/16 at 15:00 Hydromorphone HCl (Dilaudid) 2 mg Q6H PRN PO PAIN; Start 11/08/16 at 15:00 Sodium Chloride 1 gm 1 gm TID PO Last administered on 11/08/16 21:17; Admin Dose 1 GM; Start 11/08/16 at 21:00 Norepinephrine 16 mg/Dextrose 500 ml @ 1.87 mls/hr TITRATE IV Last administered on 11/08/16 21:31; Admin Dose 3 MLS/HR; Start 11/08/16 at 20:00 Propofol (Diprivan) 100 ml @ 2.187 mls/ hr Q12H IV Last administered on 03:27; Admin Dose 13.122 MLS/HR; Start 11/08/16 at 21:00 Pantoprazole (Protonix Iv) 40 mg DAILY@06 IV Last administered on 11/09/16 05: 33; Admin Dose 40 MG; Start 11/09/16 at 06:00 Heparin Sodium (Porcine) 5000 unit 5,000 unit Q12 SC ; Start 11/09/16 at 21:00 Cefepime HCl 50 ml @ 100 mls/hr Q12 IVPB ; Start 11/09/16 at 10:30 Phenylephrine HCl/ Dextrose ([place]dal[place]-Syneph/D5W) 500 ml @ 37.5 mls/hr TITRATE IV ; Start 11/09/16 at 10:00 CA BURGOS Nov 09, 2016 09:37
[2016-11-09] MEDS ORDERED: PHENYLephrine 80 MG in DEXTROSE 5% 492 ML IV SCH (10:00)
[2016-11-09] MEDS: CEFEPIME 2GM/50 ML (PMX) 50 ML IVPB SCH ×2 (10:07→20:24)
[2016-11-09] MEDS ORDERED: ALTEPLASE (CATHFLO) 2 MG INJ CATHETER PRN ×2 (10:30→18:30)
[2016-11-09] MEDS: SODIUM CHLORIDE 1 GM TAB PO SCH ×3 (10:55→20:24)
[2016-11-09] MEDS ORDERED: VANCOMYCIN 1.5 GM in SOD CHLORIDE 0.9% 250 ML IVPB ONE (12:00)
[2016-11-09] MEDS ORDERED: FENTAnyl (DRIP) 1000 mcg/100mL 100 ML IV SCH (16:00)
--- NOTE | 2016-11-09 16:01 | CONS ---
Date/Time of Note Date/Time of Note DATE: 11/09/16 TIME: 15:52 Assessment/Plan Assessment/Plan Additional Assessment/Plan Spoke with family members including patient's and daughter. We discussed goals of care background, have a clear understanding of her underlying medical problems. Discussed patient's prior hopes that she does not suffer and that she does not want to remain in a debilitated condition or have cardiopulmonary resuscitation. Communication preferences family members are to have one-to-one conversations with him next conversation will be within the next 24 hours to discuss with other family members. Patient's mother is sharing responsibility for decision making both she and her are at the same opinion insofar as goals of care patient explained her prognosis on the ventilator approximately less than a week off the ventilator within hours. We have discussed patient's comfort level and I agree to optimize her pain control and switch her to fentanyl continuous drip ...There are no ethical issues insofar as CODE STATUS I will be changed to DO NOT RESUSCITATE per patient's family's recommendation. Family members agreed to no escalation of care including titrating up oxygen or adding any more pressors or increasing current dosing of Levophed. He knew that the patient does not improve within the next couple of days family members request compassionate extubation. Consultation Date/Type/Reason Admit Date/Time Date of Consultation: Nov 09, 2016 Reason for Consultation This is a 41-year-old female who has a history of metastatic breast cancer who became intensely short of breath at home was brought to the emergency room and [facility] required intubation. She is on pressors at this time and on 50% FiO2. Chest x-ray shows evidence of pneumonia pulmonary edema or lymphangitic spread of carcinoma. Last chemotherapy was approximately 2 weeks ago. 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 Past Surgical History Past Surgical Hx: other (Mastectomy) Social History Alcohol Use: none Smoking Status: Unknown if ever smoked Drug Use: none Exam/Review of Systems Vital Signs Vitals Vital Signs Date Time Temp Pulse Resp B/P Pulse Ox O2 Delivery O2 Flow Rate FiO2 11/09/16 15:00 138 19 101/66 100 Mechanical Ventilator 11/09/16 13:30 40 11/09/16 12:00 99.1 11/08/16 13:12 3.0 Intake and Output 11/08/16 11/08/16 11/09/16 15:00 23:00 07:00 Intake Total 1641.94 ml 1969.75 ml Output Total 585 ml 80 ml Balance 1056.94 ml 1889.75 ml Exam Constitutional: other (Intubated nonresponse, sedated) Eyes: EOMI, PERRL, nl conjunctiva, nl lids, nl sclera Neck: non-tender, supple Respiratory: clear to auscultation, normal air movement Cardiovascular: nl pulses, regular rate and rhythm Gastrointestinal: nl liver, spleen, non-tender, soft Results Result Diagram: 11/09/16 0530 11/09/16 0530 Results 24 hrs Laboratory Tests Test 11/08/16 16:15 11/08/16 18:43 11/08/16 23:30 11/09/16 01:00 Urine Color YELLOW Urine Clarity CLEAR Urine pH 6.0 Urine Specific [place] 1.009 Urine Ketones NEGATIVE Urine Nitrite NEGATIVE Urine Bilirubin NEGATIVE Urine Urobilinogen NEGATIVE Urine Leukocyte Esterase NEGATIVE Urine Hemoglobin NEGATIVE Urine Glucose NEGATIVE Urine Total Protein NEGATIVE Lactic Acid Level 4.9 *H 3.2 *H Blood Gas Specimen Source Blood arterial Arterial Blood Date Drawn 11/08/2016 11:56:39 PM Arterial Blood pH (Temp corrected) 7.453 H Arterial Blood pCO2 (Temp correct) 31.9 L Arterial Blood pO2 (Temp corrected) 149.5 H Arterial Blood HCO3 21.8 L Arterial Blood Base Excess -1.5 Arterial Blood Oxygen Saturation 98.7 H Derick Test ACCEPTAB Arterial Blood Gas Puncture Site Right Radial Arterial Blood Carboxyhemoglobin 0.2 Arterial Blood Methemoglobin 0.2 Blood Gas A-a O2 Differential 171.1 H Oxyhemoglobin Percent 98.3 Total Hemoglobin 10.1 L Blood Gas Temperature 37.0 Blood Gas Respiration Rate 18.0 Blood Gas Actual Respiration Rate 18 Blood Gas Modality VENT - AC FiO2 50.0 Blood Gas Tidal Volume 450.0 Blood Gas Mean Airway Pressure 12 Blood Gas Low PEEP Setting 5.0 Blood Gas Inspiratory Pressure 31.0 Blood Gas Notified Stuart ROSE RCP Blood Gas Notified Time 11/09/2016 12:09:14 AM Test 11/09/16 05:30 8/20/17 12:13 White Blood Count 11.0 H Red Blood Count 3.03 L Hemoglobin 8.6 L Hematocrit 25.8 L Mean Corpuscular Volume 85.1 Mean Corpuscular Hemoglobin 28.4 L Mean Corpuscular Hemoglobin Concent 33.3 Red Cell Distribution Width 16.5 H Platelet Count 247 # Mean Platelet Volume 10.1 Neutrophils % 71.9 Lymphocytes % 8.6 L Monocytes % 16.7 H Eosinophils % 0.0 Basophils % 0.1 Nucleated Red Blood Cells % 7.0 H Neutrophils # (Manual) 8 H Lymphocytes # 0.9 Monocytes # 1.8 H Eosinophils # 0.0 Basophils # 0.0 Nucleated Red Blood Cells # 0.8 H Sodium Level 122 L Potassium Level 5.7 H Chloride Level 83 L Carbon Dioxide Level 25 Anion Gap 20 H Blood Urea Nitrogen 31 H Creatinine 1.11 H Glucose Level 104 Hemoglobin A1c 5.5 Lactic Acid Level 2.6 *H 3.3 *H Calcium Level 7.7 L Phosphorus Level 4.1 Magnesium Level 1.7 Total Bilirubin 0.2 Direct Bilirubin 0.00 Indirect Bilirubin 0.2 Aspartate Amino Transf (AST/SGOT) Alanine Aminotransferase (ALT/SGPT) 2867 H Alkaline Phosphatase 367 H Total Protein 5.6 #L Albumin 2.8 #L Triglycerides Level 560 H Cholesterol Level 84 L LDL Cholesterol, Calculated HDL Cholesterol 24 L Cholesterol/HDL Ratio 3.5 Thyroid Stimulating Hormone (TSH) 4.550 Medications Medications Current Medications Ondansetron HCl (Zofran Inj) 4 mg Q6H PRN IV NAUSEA AND/OR VOMITING; Start at 15:00 Acetaminophen (Tylenol Tab) 650 mg Q6H PRN PO PAIN LEVEL 1-3 OR FEVER; Start at 15:00 Morphine Sulfate (morphine) 2 mg Q4H PRN IV SEVERE PAIN LEVEL 7-10; Start 11/08 at 15:00 Docusate Sodium (Colace) 100 mg Q12H PRN PO CONSTIPATION; Start 11/08/16 at 15: 00 Magnesium Hydroxide (Milk Of Mag) 30 ml DAILY PRN PO CONSTIPATION; Start at 15:00 Sodium Biphosphate/ Sodium Phosphate (Fleet Enema) 133 ml DAILY PRN [place] CONSTIPATION; Start 11/08/16 at 15:00 Lorazepam 0.5 mg 0.5 mg Q6H PRN IV ANXIETY; Start 11/08/16 at 15:00 Sodium Chloride (NS) 1,000 ml @ 150 mls/hr Q6H40M IV Last administered on 11/09 07:45; Admin Dose 100 MLS/HR; Start 11/08/16 at 14:52 Hydralazine HCl (Apresoline) 10 mg Q6H PRN IV ELEVATED BLOOD PRESSURE; Start at 15:00 Nitroglycerin (Nitroglycerin (Sl Tab) 0.4 Mg) 1 tab Q5M PRN SL ANGINA; Start at 15:00 Sodium Chloride 1 gm 1 gm TID PO Last administered on 11/09/16 14:14; Admin Dose 1 GM; Start 11/08/16 at 21:00 Norepinephrine 16 mg/Dextrose 500 ml @ 1.87 mls/hr TITRATE IV Last administered on 11/08/16 21:31; Admin Dose 3 MLS/HR; Start 11/08/16 at 20:00 Propofol (Diprivan) 100 ml @ 2.187 mls/ hr Q12H IV Last administered on 10:48; Admin Dose 13.122 MLS/HR; Start 11/08/16 at 21:00 Pantoprazole (Protonix Iv) 40 mg DAILY@06 IV Last administered on 11/09/16 05: 33; Admin Dose 40 MG; Start 11/09/16 at 06:00 Heparin Sodium (Porcine) 5000 unit 5,000 unit Q12 SC ; Start 11/09/16 at 21:00 Cefepime HCl 50 ml @ 100 mls/hr Q12 IVPB Last administered on 11/09/16 10:07 ; Admin Dose 100 MLS/HR; Start 11/09/16 at 10:30 Phenylephrine HCl 80 mg/Dextrose 500 ml @ 37.5 mls/hr TITRATE IV ; Start at 10:00 Vancomycin HCl 250 ml @ 125 mls/hr Q24H IVPB ; Start 11/10/16 at 12:00 Fentanyl (Sublimaze) 100 ml @ 2.5 mls/hr TITRATE IV ; Start 11/09/16 at 16:00 Procedures Procedures PROCEDURE: XR Chest. CLINICAL INDICATION: Post intubation TECHNIQUE: Single frontal chest x-ray. COMPARISON: Same day radiographs FINDINGS: The endotracheal tube is about 2.3 cm above the meghan. Low lung volumes are again noted with increased hazy and patchy opacities within the bilateral lungs since the prior study. There is a round opacity overlying the right mid to lower lung which appears new or more distinct since the prior study. There are small to moderate bilateral pleural effusions. There is no pneumothorax. The heart appears enlarged although limited in evaluation due to the opacities. No acute fractures are visualized. RPTAT: QQ IMPRESSION: 1. Endotracheal tube about 2.3 cm above the meghan. 2. Hypo expansion with increased bilateral pulmonary opacities which may be from infection and/or edema with underlying lymphangitic carcinomatosis. New round opacity within the right [id number] lung of uncertain etiology and may be from atelectasis, infection, or underlying mass more prominent on this study ; a follow-up CT chest may be helpful for additional evaluation if clinically indicated. 3. Small to moderate bilateral pleural effusions. .Angelina Navarro MD, MD Date Time Electronically viewed and signed by .Angelina Navarro MD, MD on 11/08/2016 16: 45 .T/ CC: BRIAN KNIGHT LLORENS J Nov 09, 2016 16:01
--- NOTE | 2016-11-09 16:01 | CONS ---
Date/Time of Note Date/Time of Note DATE: 11/09/16 TIME: 15:50 Assessment/Plan Assessment/Plan Additional Assessment/Plan 1. acute kidney injury due to ATN From septis 2. Sepsis 3. Severe hyponatremia 4. metastatic breast Cancer 5. Sternotomy wound Plan : Continue current care, s/p kayexalate 30 gram Po x 1 dose Continue IVF NS, decrease rate to 80 cc/hr Renal US Urine studies, Urine sodium, Urine prot./cr ratio, urine eosinophils poor prognosis, Palliative care consult has been requested on the patient. Thanks for consultation, will continue to follow up Consultation Date/Type/Reason Admit Date/Time 11/08/2016 Date of Consultation: Nov 09, 2016 Type of Consultation: NEPHROLOGY Reason for Consultation acute kidney injury, Referring Provider: NAYELY MAR Hx of Present Illness 41-year-old female past medical history of metastatic breast carcinoma with metastases to the lungs, asthma, who presents to the emergency room for evaluation of shortness of breath. The patient states that her shortness of breath is gone progressively worse over the past 3 days. Patient is presently on chemotherapy and her last chemotherapy was October 17. The patient states her next chemotherapy is scheduled for November 17. She states her shortness of breath is worse with lying flat and nothing is improved. She does have a home nebulizer machine however does not help with her shortness of breath. She does state that she has noticed some swelling in her lower extremities as well. When she came into the emergency room today she had sodium levels of 119, and lactic acid 2.8. Past Medical History Medical History: cancer, hypertension Past Surgical History Past Surgical Hx: other (Mastectomy) Family History Significant Family History: no pertinent family hx Social History Alcohol Use: none Smoking Status: Unknown if ever smoked Drug Use: none Exam/Review of Systems Vital Signs Vitals Vital Signs Date Time Temp Pulse Resp B/P Pulse Ox O2 Delivery O2 Flow Rate FiO2 11/09/16 15:00 138 19 101/66 100 Mechanical Ventilator 11/09/16 13:30 40 11/09/16 12:00 99.1 11/08/16 13:12 3.0 Intake and Output 11/08/16 11/08/16 11/09/16 15:00 23:00 07:00 Intake Total 1641.94 ml 1969.75 ml Output Total 585 ml 80 ml Balance 1056.94 ml 1889.75 ml Exam GENERAL: patient is frail-appearing female, now intubated, sedated HEENT: Intubated and sedated NECK: C-spine is soft and supple, there is no meningismus. LUNGS: Coarse breath sounds bilaterally with rhonchi auscultated in the upper and lower lobe HEART: Tachycardic no murmurs, clicks, rubs or gallops. ABDOMEN: soft, non-tender, non-distended. There are bowel sounds in all four quadrants. No rebound or guarding. EXTREMITIES: 1+ pitting edema in the bilateral lower extremities, no cyanosis NEUROLOGICAL: Intubated and sedated SKIN: On superior sternal side there are wounds noticed around her mastectomy site Results Result Diagram: 11/09/16 0530 11/09/16 0530 Results 24 hrs Laboratory Tests Test 11/08/16 16:15 11/08/16 18:43 11/08/16 23:30 11/09/16 01:00 Urine Color YELLOW Urine Clarity CLEAR Urine pH 6.0 Urine Specific [place] 1.009 Urine Ketones NEGATIVE Urine Nitrite NEGATIVE Urine Bilirubin NEGATIVE Urine Urobilinogen NEGATIVE Urine Leukocyte Esterase NEGATIVE Urine Hemoglobin NEGATIVE Urine Glucose NEGATIVE Urine Total Protein NEGATIVE Lactic Acid Level 4.9 *H 3.2 *H Blood Gas Specimen Source Blood arterial Arterial Blood Date Drawn 11/08/2016 11:56:39 PM Arterial Blood pH (Temp corrected) 7.453 H Arterial Blood pCO2 (Temp correct) 31.9 L Arterial Blood pO2 (Temp corrected) 149.5 H Arterial Blood HCO3 21.8 L Arterial Blood Base Excess -1.5 Arterial Blood Oxygen Saturation 98.7 H Derick Test ACCEPTAB Arterial Blood Gas Puncture Site Right Radial Arterial Blood Carboxyhemoglobin 0.2 Arterial Blood Methemoglobin 0.2 Blood Gas A-a O2 Differential 171.1 H Oxyhemoglobin Percent 98.3 Total Hemoglobin 10.1 L Blood Gas Temperature 37.0 Blood Gas Respiration Rate 18.0 Blood Gas Actual Respiration Rate 18 Blood Gas Modality VENT - AC FiO2 50.0 Blood Gas Tidal Volume 450.0 Blood Gas Mean Airway Pressure 12 Blood Gas Low PEEP Setting 5.0 Blood Gas Inspiratory Pressure 31.0 Blood Gas Notified Stuart ROSE RCP Blood Gas Notified Time 11/09/2016 12:09:14 AM Test 11/09/16 05:30 11/09/16 12:13 White Blood Count 11.0 H Red Blood Count 3.03 L Hemoglobin 8.6 L Hematocrit 25.8 L Mean Corpuscular Volume 85.1 Mean Corpuscular Hemoglobin 28.4 L Mean Corpuscular Hemoglobin Concent 33.3 Red Cell Distribution Width 16.5 H Platelet Count 247 # Mean Platelet Volume 10.1 Neutrophils % 71.9 Lymphocytes % 8.6 L Monocytes % 16.7 H Eosinophils % 0.0 Basophils % 0.1 Nucleated Red Blood Cells % 7.0 H Neutrophils # (Manual) 8 H Lymphocytes # 0.9 Monocytes # 1.8 H Eosinophils # 0.0 Basophils # 0.0 Nucleated Red Blood Cells # 0.8 H Sodium Level 122 L Potassium Level 5.7 H Chloride Level 83 L Carbon Dioxide Level 25 Anion Gap 20 H Blood Urea Nitrogen 31 H Creatinine 1.11 H Glucose Level 104 Hemoglobin A1c 5.5 Lactic Acid Level 2.6 *H 3.3 *H Calcium Level 7.7 L Phosphorus Level 4.1 Magnesium Level 1.7 Total Bilirubin 0.2 Direct Bilirubin 0.00 Indirect Bilirubin 0.2 Aspartate Amino Transf (AST/SGOT) Alanine Aminotransferase (ALT/SGPT) 2867 H Alkaline Phosphatase 367 H Total Protein 5.6 #L Albumin 2.8 #L Triglycerides Level 560 H Cholesterol Level 84 L LDL Cholesterol, Calculated HDL Cholesterol 24 L Cholesterol/HDL Ratio 3.5 Thyroid Stimulating Hormone (TSH) 4.550 Medications Medications Current Medications Ondansetron HCl (Zofran Inj) 4 mg Q6H PRN IV NAUSEA AND/OR VOMITING; Start at 15:00 Acetaminophen (Tylenol Tab) 650 mg Q6H PRN PO PAIN LEVEL 1-3 OR FEVER; Start at 15:00 Morphine Sulfate (morphine) 2 mg Q4H PRN IV SEVERE PAIN LEVEL 7-10; Start 11/08 at 15:00 Docusate Sodium (Colace) 100 mg Q12H PRN PO CONSTIPATION; Start 11/08/16 at 15: 00 Magnesium Hydroxide (Milk Of Mag) 30 ml DAILY PRN PO CONSTIPATION; Start at 15:00 Sodium Biphosphate/ Sodium Phosphate (Fleet Enema) 133 ml DAILY PRN [place] CONSTIPATION; Start 11/08/16 at 15:00 Lorazepam 0.5 mg 0.5 mg Q6H PRN IV ANXIETY; Start 11/08/16 at 15:00 Sodium Chloride (NS) 1,000 ml @ 150 mls/hr Q6H40M IV Last administered on 11/09 07:45; Admin Dose 100 MLS/HR; Start 11/08/16 at 14:52 Hydralazine HCl (Apresoline) 10 mg Q6H PRN IV ELEVATED BLOOD PRESSURE; Start at 15:00 Nitroglycerin (Nitroglycerin (Sl Tab) 0.4 Mg) 1 tab Q5M PRN SL ANGINA; Start at 15:00 Sodium Chloride 1 gm 1 gm TID PO Last administered on 11/09/16 14:14; Admin Dose 1 GM; Start 11/08/16 at 21:00 Norepinephrine 16 mg/Dextrose 500 ml @ 1.87 mls/hr TITRATE IV Last administered on 11/08/16 21:31; Admin Dose 3 MLS/HR; Start 11/08/16 at 20:00 Propofol (Diprivan) 100 ml @ 2.187 mls/ hr Q12H IV Last administered on 10:48; Admin Dose 13.122 MLS/HR; Start 11/08/16 at 21:00 Pantoprazole (Protonix Iv) 40 mg DAILY@06 IV Last administered on 11/09/16 05: 33; Admin Dose 40 MG; Start 11/09/16 at 06:00 Heparin Sodium (Porcine) 5000 unit 5,000 unit Q12 SC ; Start 11/09/16 at 21:00 Cefepime HCl 50 ml @ 100 mls/hr Q12 IVPB Last administered on 11/09/16 10:07 ; Admin Dose 100 MLS/HR; Start 11/09/16 at 10:30 Phenylephrine HCl 80 mg/Dextrose 500 ml @ 37.5 mls/hr TITRATE IV ; Start at 10:00 Vancomycin HCl 250 ml @ 125 mls/hr Q24H IVPB ; Start 11/10/16 at 12:00 Fentanyl (Sublimaze) 100 ml @ 2.5 mls/hr TITRATE IV ; Start 11/09/16 at 16:00 ARISTIDES SHAHID MD Nov 09, 2016 16:01
--- NOTE | 2016-11-09 16:46 | CONS ---
Date/Time of Note Date/Time of Note DATE: 11/09/16 TIME: 16:36 Assessment/Plan Assessment/Plan Chief Complaint/Hosp Course 41 yo female with metastatic her 2 positive breast cancer involving her chest wall, lungs and pericardial effusion. Pt has progressed through multiple lines of chemotherapy and is now admitted with shortness of breath with signs of fluid overload, lactic acidosis, hyponatremia, sepsis. # Metastatic Breast Cancer -pt is terminally ill and will not recover from this disease -appreciate palliative care involvement to make patient DNR. she is currently intubated -pt will likely need to placed on comfort measures within the next few days, when the family is ready #AJAY from sepsis -appreciate nephrology recs -cont IVF per nephrology recs #Sepsis- -cont pressor support -cont broad spectrum antibiotics #Respiratory Distress -pt currently intubated -cont vent management per Pulmonary Problems: (1) Metastatic breast cancer Status: Chronic (2) Acute respiratory failure Status: Acute (3) Pulmonary edema Status: Acute Consultation Date/Type/Reason Admit Date/Time 11/08/2016 Date of Consultation: Nov 09, 2016 Type of Consultation: Oncology Reason for Consultation metastatic Her2 positive breast cancer Referring Provider: NAYELY MAR Hx of Present Illness 41yo male who was diagnosed with ER+/ME+/Her2+ breast cancer initially diagnosed in May of 2009. She underwent chemo/ MRM and radiation therapy and then proceeded with Tamoxifen. Unfortunately in 2014 she recurred to the chest wall and contralateral breast. Pt has since been treated with TDM-1, Herceptin/ Perjeta/Taxotere and was then placed on a clinical trial at [facility] which she progressed through as well. She has progressed through Lapatanib, Cytoxan, Gemzar. In May of this last year patent's sx worsened as her pulmonary mets increased. Patient was not ready to consider hospice. She was thus placed on Taxol/ Herceptin to which she progressed through and most recently started Doxil chemotherapy. Pt was seen in our office on Thursday and looked extremealy weak. She was again told that she is terminally ill and that chemotherapy would add benefit to her quality or quantity of life. She now presents to [facility] with shortness of breath with signs of fluid overload, lactic acidosis, hyponatremia, sepsis. She is now intubated on pressor support. Family is at the bedside. All are aware patient will likely pass of from this disease during this hospitalization Subjective hx not possible: pt non-verbal, pt critical status Past Medical History asthma Medical History: cancer, hypertension Past Surgical History s/p L mastectomy Past Surgical Hx: other (Mastectomy) Family History Significant Family History: no pertinent family hx Social History Alcohol Use: none Smoking Status: Unknown if ever smoked Drug Use: none Exam/Review of Systems Vital Signs Vitals Vital Signs Date Time Temp Pulse Resp B/P Pulse Ox O2 Delivery O2 Flow Rate FiO2 11/09/16 16:15 142 18 94/80 100 11/09/16 16:00 99.0 Mechanical Ventilator 11/09/16 13:30 40 11/08/16 13:12 3.0 Intake and Output 11/08/16 11/08/16 11/09/16 15:00 23:00 07:00 Intake Total 1641.94 ml 1969.75 ml Output Total 585 ml 80 ml Balance 1056.94 ml 1889.75 ml Exam Constitutional: frail ENMT: intubated Neck: non-tender, supple Respiratory: diminished breath sounds, labored breathing Cardiovascular: regular rate and rhythm Gastrointestinal: soft Musculoskeletal: nl extremities to inspection, nl gait and stance Skin: other (ulcerated malignant mass covering her entire chest wall, fungating and oozing) Results Result Diagram: 11/09/16 0530 11/09/16 0530 Results 24 hrs Laboratory Tests Test 11/08/16 18:43 11/08/16 23:30 11/09/16 01:00 11/09/16 05:30 Lactic Acid Level 4.9 *H 3.2 *H 2.6 *H Blood Gas Specimen Source Blood arterial Arterial Blood Date Drawn 11/08/2016 11:56:39 PM Arterial Blood pH (Temp corrected) 7.453 H Arterial Blood pCO2 (Temp correct) 31.9 L Arterial Blood pO2 (Temp corrected) 149.5 H Arterial Blood HCO3 21.8 L Arterial Blood Base Excess -1.5 Arterial Blood Oxygen Saturation 98.7 H Derick Test ACCEPTAB Arterial Blood Gas Puncture Site Right Radial Arterial Blood Carboxyhemoglobin 0.2 Arterial Blood Methemoglobin 0.2 Blood Gas A-a O2 Differential 171.1 H Oxyhemoglobin Percent 98.3 Total Hemoglobin 10.1 L Blood Gas Temperature 37.0 Blood Gas Respiration Rate 18.0 Blood Gas Actual Respiration Rate 18 Blood Gas Modality VENT - AC FiO2 50.0 Blood Gas Tidal Volume 450.0 Blood Gas Mean Airway Pressure 12 Blood Gas Low PEEP Setting 5.0 Blood Gas Inspiratory Pressure 31.0 Blood Gas Notified Whom [facility] Blood Gas Notified Time 11/09/2016 12:09:14 AM White Blood Count 11.0 H Red Blood Count 3.03 L Hemoglobin 8.6 L Hematocrit 25.8 L Mean Corpuscular Volume 85.1 Mean Corpuscular Hemoglobin 28.4 L Mean Corpuscular Hemoglobin Concent 33.3 Red Cell Distribution Width 16.5 H Platelet Count 247 # Mean Platelet Volume 10.1 Neutrophils % 71.9 Lymphocytes % 8.6 L Monocytes % 16.7 H Eosinophils % 0.0 Basophils % 0.1 Nucleated Red Blood Cells % 7.0 H Neutrophils # (Manual) 8 H Lymphocytes # 0.9 Monocytes # 1.8 H Eosinophils # 0.0 Basophils # 0.0 Nucleated Red Blood Cells # 0.8 H Sodium Level 122 L Potassium Level 5.7 H Chloride Level 83 L Carbon Dioxide Level 25 Anion Gap 20 H Blood Urea Nitrogen 31 H Creatinine 1.11 H Glucose Level 104 Hemoglobin A1c 5.5 Calcium Level 7.7 L Phosphorus Level 4.1 Magnesium Level 1.7 Total Bilirubin 0.2 Direct Bilirubin 0.00 Indirect Bilirubin 0.2 Aspartate Amino Transf (AST/SGOT) Alanine Aminotransferase (ALT/SGPT) 2867 H Alkaline Phosphatase 367 H Total Protein 5.6 #L Albumin 2.8 #L Triglycerides Level 560 H Cholesterol Level 84 L LDL Cholesterol, Calculated HDL Cholesterol 24 L Cholesterol/HDL Ratio 3.5 Thyroid Stimulating Hormone (TSH) 4.550 Test 11/09/16 12:13 Lactic Acid Level 3.3 *H Medications Medications Current Medications Ondansetron HCl (Zofran Inj) 4 mg Q6H PRN IV NAUSEA AND/OR VOMITING; Start at 15:00 Acetaminophen (Tylenol Tab) 650 mg Q6H PRN PO PAIN LEVEL 1-3 OR FEVER; Start at 15:00 Morphine Sulfate (morphine) 2 mg Q4H PRN IV SEVERE PAIN LEVEL 7-10; Start 11/08 at 15:00 Docusate Sodium (Colace) 100 mg Q12H PRN PO CONSTIPATION; Start 11/08/16 at 15: 00 Magnesium Hydroxide (Milk Of Mag) 30 ml DAILY PRN PO CONSTIPATION; Start at 15:00 Sodium Biphosphate/ Sodium Phosphate (Fleet Enema) 133 ml DAILY PRN ME CONSTIPATION; Start 11/08/16 at 15:00 Lorazepam 0.5 mg 0.5 mg Q6H PRN IV ANXIETY; Start 11/08/16 at 15:00 Sodium Chloride (NS) 1,000 ml @ 80 mls/hr [id number] IV Last administered on 11/09 07:45; Admin Dose 100 MLS/HR; Start 11/08/16 at 14:52 Hydralazine HCl (Apresoline) 10 mg Q6H PRN IV ELEVATED BLOOD PRESSURE; Start at 15:00 Nitroglycerin (Nitroglycerin (Sl Tab) 0.4 Mg) 1 tab Q5M PRN SL ANGINA; Start at 15:00 Sodium Chloride 1 gm 1 gm TID PO Last administered on 11/09/16 14:14; Admin Dose 1 GM; Start 11/08/16 at 21:00 Norepinephrine 16 mg/Dextrose 500 ml @ 1.87 mls/hr TITRATE IV Last administered on 11/08/16 21:31; Admin Dose 3 MLS/HR; Start 11/08/16 at 20:00 Propofol (Diprivan) 100 ml @ 2.187 mls/ hr Q12H IV Last administered on 10:48; Admin Dose 13.122 MLS/HR; Start 11/08/16 at 21:00 Pantoprazole (Protonix Iv) 40 mg DAILY@06 IV Last administered on 11/09/16 05: 33; Admin Dose 40 MG; Start 11/09/16 at 06:00 Heparin Sodium (Porcine) 5000 unit 5,000 unit Q12 SC ; Start 11/09/16 at 21:00 Cefepime HCl 50 ml @ 100 mls/hr Q12 IVPB Last administered on 11/09/16 10:07 ; Admin Dose 100 MLS/HR; Start 11/09/16 at 10:30 Vancomycin HCl 250 ml @ 125 mls/hr Q24H IVPB ; Start 11/10/16 at 12:00 Fentanyl (Sublimaze) 100 ml @ 2.5 mls/hr TITRATE IV ; Start 11/09/16 at 16:00 LUIS FELIPE ALCANTAR M.D. Nov 09, 2016 16:46
[2016-11-10] VITALS (31 sets, daily range): BP systolic 40–93; BP diastolic 17–69; PULSE 0–140; RESP 0–47
[2016-11-10 04:51] LABS: ABNORMAL IP MESSAGE 1; HEMATOCRIT 27.5 % (37.0-47.0); HEMOGLOBIN 8.6 g/dl (12.0-16.0); MEAN CORPUSCULAR HEMOGLOBIN 27.4 pg (29.0-33.0); MEAN CORPUSCULAR HGB CONC 31.3 g/dl (32.0-37.0); MEAN CORPUSCULAR VOLUME 87.6 fl (82.0-101.0); MEAN PLATELET VOLUME 11.1 fl (7.4-10.4); NUCLEATED RED BLOOD CELLS% 23.4 /100WBC (0.0-0.0); PLATELET COUNT 196 10^3/UL (140-415); RED BLOOD COUNT 3.14 10^6/ul (4.20-5.40); RED CELL DISTRIBUTION WIDTH 17.2 % (11.5-14.5)
[2016-11-10 05:09] LABS: POSITIVE DIFF @See below
[2016-11-10 05:30] LABS: ALBUMIN 2.2 g/dl (3.3-4.9); BILIRUBIN,DIRECT 0.1 mg/dl (0.00-0.20); BILIRUBIN,INDIRECT 0.3 mg/dl (0-1.1); BILIRUBIN,TOTAL 0.4 mg/dl (0.2-1.3); TOTAL PROTEIN 4.4 g/dl (6.1-8.1)
[2016-11-10 05:31] LABS: MAGNESIUM 1.6 mg/dl (1.7-2.5); PHOSPHORUS 4.6 mg/dl (2.5-4.9)
[2016-11-10] MEDS: SOD CHLORIDE 0.9% 1,000 ML IV SCH ×2 (05:34→10:43)
[2016-11-10] MEDS: PANTOPRAZOLE 40 MG INJ IV SCH (05:34)
[2016-11-10 05:48] LABS: CREATININE 1.38 mg/dl (0.44-1.00)
[2016-11-10 09:52] LABS: ANISOCYTOSIS 2+ (0-0); ERYTHROBLAST% (NRBC) (M) 40 % (0-0); METAMYELOCYTES %M 1 % (0-0); MICROCYTOSIS 1+ (0-0); MONOCYTES % (M) 11 % (0-11); PLATELET ESTIMATE NORMAL; POIKILOCYTOSIS 3+ (0-0); POLYCHROMASIA 3+ (0-0)
[2016-11-10] MEDS: CEFEPIME 2GM/50 ML (PMX) 50 ML IVPB SCH (09:52)
[2016-11-10] MEDS: SODIUM CHLORIDE 1 GM TAB PO SCH (09:52)
[2016-11-10] MEDS: PROPOFOL 100 ML IV SCH (09:53)
[2016-11-10] MEDS: HEPARIN 5,000 UNIT/0.5 ML VIAL SC SCH (09:53)
--- NOTE | 2016-11-10 10:25 | CONS ---
Date/Time of Note Date/Time of Note DATE: 11/10/16 TIME: 10:23 Assessment/Plan Assessment/Plan Chief Complaint/Hosp Course 41 yo female with metastatic her 2 positive breast cancer involving her chest wall, lungs and pericardial effusion. Pt has progressed through multiple lines of chemotherapy and is now admitted with shortness of breath with signs of fluid overload, lactic acidosis, hyponatremia, sepsis. # Metastatic Breast Cancer -pt is terminally ill and will not recover from this disease -appreciate palliative care involvement to make patient DNR. she is currently intubated -pt BP is dropping and will be placed on comfort measures #AJAY from sepsis -appreciate nephrology recs -cont IVF per nephrology recs #Sepsis- -cont pressor support -cont broad spectrum antibiotics #Respiratory Distress -pt currently intubated -cont vent management per Pulmonary Problems: Consultation Date/Type/Reason Admit Date/Time Nov 08, 2016 at 15:58 Initial Consult Date 11/09/16 Type of Consultation: Oncology Reason for Consultation metastatic breast ca Referring Provider: NAYELY MAR 24 HR Interval Summary Free Text/Dictation patient's BP is dropping. family at bedside. she is maxed on pressor support Exam/Review of Systems Vital Signs Vitals Vital Signs Date Time Temp Pulse Resp B/P Pulse Ox O2 Delivery O2 Flow Rate FiO2 11/10/16 08:00 133 11/10/16 05:11 22 99 40 11/10/16 05:00 53/25 Mechanical Ventilator 11/10/16 04:00 99.5 11/08/16 13:12 3.0 Intake and Output 11/09/16 11/09/16 11/10/16 15:00 23:00 07:00 Intake Total 1045.360 ml 1410.917 ml 1081.854 ml Output Total 95 ml 80 ml 35 ml Balance 950.360 ml 1330.917 ml 1046.854 ml Exam ENMT: intubated Neck: non-tender, supple Respiratory: diminished breath sounds Cardiovascular: other (tachycardic) Gastrointestinal: soft Results Result Diagram: 11/10/16 0400 11/10/16 0400 Results 24 hrs Laboratory Tests Test 11/09/16 12:13 11/09/16 18:45 11/10/16 04:00 Lactic Acid Level 3.3 *H 3.4 *H White Blood Count 14.0 #H Red Blood Count 3.14 L Hemoglobin 8.6 L Hematocrit 27.5 L Mean Corpuscular Volume 87.6 Mean Corpuscular Hemoglobin 27.4 L Mean Corpuscular Hemoglobin Concent 31.3 L Red Cell Distribution Width 17.2 H Platelet Count 196 # Mean Platelet Volume 11.1 H Neutrophils % Segmented Neutrophils % (Manual) 69 Band Neutrophils % (Manual) 14 H Lymphocytes % Lymphocytes % (Manual) 5 L Monocytes % Monocytes % (Manual) 11 Eosinophils % Basophils % Metamyelocytes % (manual) 1 H Nucleated Red Blood Cells % 40 H Neutrophils # (Manual) 10 H Band Neutrophils # 1.9 H Absolute Lymphocytes (Manual) 0.7 L Lymphocytes # Monocytes # Absolute Monocytes (Manual) 1.5 H Eosinophils # Basophils # Metamyelocytes # 0.1 H Nucleated Red Blood Cells # Platelet Estimate NORMAL Polychromasia 3+ Poikilocytosis 3+ Anisocytosis 2+ Microcytosis 1+ Sodium Level 120 L Potassium Level 4.0 Chloride Level 87 L Carbon Dioxide Level 18 L Anion Gap 19 H Blood Urea Nitrogen 35 H Creatinine 1.38 H Glucose Level 310 #H Calcium Level 6.0 L Phosphorus Level 4.6 Magnesium Level 1.6 L Total Bilirubin 0.4 Direct Bilirubin 0.10 Indirect Bilirubin 0.3 Aspartate Amino Transf (AST/SGOT) 6828 H Alanine Aminotransferase (ALT/SGPT) 5361 H Alkaline Phosphatase 324 H Total Protein 4.4 #L Albumin 2.2 L Medications Medications Current Medications Ondansetron HCl (Zofran Inj) 4 mg Q6H PRN IV NAUSEA AND/OR VOMITING; Start at 15:00 Acetaminophen (Tylenol Tab) 650 mg Q6H PRN PO PAIN LEVEL 1-3 OR FEVER Last administered on 11/10/16t 05:39; Admin Dose 650 MG; Start 11/08/16 at 15:00 Morphine Sulfate (morphine) 2 mg Q4H PRN IV SEVERE PAIN LEVEL 7-10; Start 11/08 at 15:00 Docusate Sodium (Colace) 100 mg Q12H PRN PO CONSTIPATION; Start 11/08/16 at 15: 00 Magnesium Hydroxide (Milk Of Mag) 30 ml DAILY PRN PO CONSTIPATION; Start at 15:00 Sodium Biphosphate/ Sodium Phosphate (Fleet Enema) 133 ml DAILY PRN IN CONSTIPATION; Start 11/08/16 at 15:00 Lorazepam 0.5 mg 0.5 mg Q6H PRN IV ANXIETY; Start 11/08/16 at 15:00 Sodium Chloride (NS) 1,000 ml @ 80 mls/hr [id number] IV Last administered on 11/10 05:34; Admin Dose 80 MLS/HR; Start 11/08/16 at 14:52 Hydralazine HCl (Apresoline) 10 mg Q6H PRN IV ELEVATED BLOOD PRESSURE; Start at 15:00 Nitroglycerin (Nitroglycerin (Sl Tab) 0.4 Mg) 1 tab Q5M PRN SL ANGINA; Start at 15:00 Sodium Chloride 1 gm 1 gm TID PO Last administered on 11/10/16 09:52; Admin Dose 1 GM; Start 11/08/16 at 21:00 Norepinephrine 16 mg/Dextrose 500 ml @ 1.87 mls/hr TITRATE IV Last administered on 11/10/16 01:23; Admin Dose 1.87 MLS/HR; Start 11/08/16 at 20:00 Propofol (Diprivan) 100 ml @ 2.187 mls/ hr Q12H IV Last administered on 09:53; Admin Dose 10.935 MLS/HR; Start 11/08/16 at 21:00 Pantoprazole (Protonix Iv) 40 mg DAILY@06 IV Last administered on 11/10/16 05: 34; Admin Dose 40 MG; Start 11/09/16 at 06:00 Heparin Sodium (Porcine) 5000 unit 5,000 unit Q12 SC Last administered on 09:53; Admin Dose 5,000 UNIT; Start 11/09/16 at 21:00 Cefepime HCl 50 ml @ 100 mls/hr Q12 IVPB Last administered on 11/10/16 09:52 ; Admin Dose 100 MLS/HR; Start 11/09/16 at 10:30 Vancomycin HCl 250 ml @ 125 mls/hr Q24H IVPB ; Start 11/10/16 at 12:00 Fentanyl (Sublimaze) 100 ml @ 2.5 mls/hr TITRATE IV Last administered on 17:32; Admin Dose 2.5 MLS/HR; Start 11/09/16 at 16:00 LUIS FELIPE ALCANTAR M.D. Nov 10, 2016 10:25
--- NOTE | 2016-11-10 10:57 | CONS ---
Date/Time of Note Date/Time of Note DATE: 11/10/16 TIME: 10:53 Assessment/Plan Assessment/Plan Additional Assessment/Plan Ventilator settings are AC of 16, tidal volume 450, PEEP of 5, 40% FiO2. Patient on Levophed at 30 mics per minute, propofol at 25 mics per kilogram per minute. Assessment and recommendations; 1. Patient admitted with severe sepsis from chest wall infection. With severe hypotension. 2. Shock liver 3. Widely metastatic breast cancer. 4. Declining urine output. 5. Hyponatremia. 6. Mild anemia . Continue current supportive care. Patient's family likely will opt for terminal extubation. Prognosis is extremely poor. 35 minutes of critical care time was spent evaluating the patient. Consultation Date/Type/Reason Admit Date/Time Nov 08, 2016 at 15:58 Initial Consult Date 11/09/16 Type of Consultation: Pulmonary/critical care Referring Provider: NAYELY MAR 24 HR Interval Summary Free Text/Dictation Patient condition remains extremely critical. Requiring high-dose Levophed for blood pressure maintenance. General exam; young woman, orally intubated, sedated, currently in no distress. Exam/Review of Systems Vital Signs Vitals Vital Signs Date Time Temp Pulse Resp B/P Pulse Ox O2 Delivery O2 Flow Rate FiO2 11/10/16 08:00 133 11/10/16 05:11 22 99 40 11/10/16 05:00 53/25 Mechanical Ventilator 11/10/16 04:00 99.5 11/08/16 13:12 3.0 Intake and Output 11/09/16 11/09/16 11/10/16 15:00 23:00 07:00 Intake Total 1045.360 ml 1410.917 ml 1081.854 ml Output Total 95 ml 80 ml 35 ml Balance 950.360 ml 1330.917 ml 1046.854 ml Exam HEENT exam; supple neck, positive JVD. No lymphadenopathy. Midline trachea. No thyromegaly. Orally intubated. Pupils are midsize and reactive to light. Patient has fair dentition. Chest examined; diminished breath sounds bilaterally. S1-S2 audible, no murmurs. Regular rhythm. There is extensive skin infection involving the right anterior chest wall at previous mastectomy site. Abdomen exam; soft, bowel sounds are absent. Extremity exam; trace edema. [employer] exam; patient is sedated. Results Result Diagram: 11/10/16 0400 11/10/16 0400 Results 24 hrs Laboratory Tests Test 11/09/16 12:13 11/09/16 18:45 11/10/16 04:00 Lactic Acid Level 3.3 *H 3.4 *H White Blood Count 14.0 #H Red Blood Count 3.14 L Hemoglobin 8.6 L Hematocrit 27.5 L Mean Corpuscular Volume 87.6 Mean Corpuscular Hemoglobin 27.4 L Mean Corpuscular Hemoglobin Concent 31.3 L Red Cell Distribution Width 17.2 H Platelet Count 196 # Mean Platelet Volume 11.1 H Neutrophils % Segmented Neutrophils % (Manual) 69 Band Neutrophils % (Manual) 14 H Lymphocytes % Lymphocytes % (Manual) 5 L Monocytes % Monocytes % (Manual) 11 Eosinophils % Basophils % Metamyelocytes % (manual) 1 H Nucleated Red Blood Cells % 40 H Neutrophils # (Manual) 10 H Band Neutrophils # 1.9 H Absolute Lymphocytes (Manual) 0.7 L Lymphocytes # Monocytes # Absolute Monocytes (Manual) 1.5 H Eosinophils # Basophils # Metamyelocytes # 0.1 H Nucleated Red Blood Cells # Platelet Estimate NORMAL Polychromasia 3+ Poikilocytosis 3+ Anisocytosis 2+ Microcytosis 1+ Sodium Level 120 L Potassium Level 4.0 Chloride Level 87 L Carbon Dioxide Level 18 L Anion Gap 19 H Blood Urea Nitrogen 35 H Creatinine 1.38 H Glucose Level 310 #H Calcium Level 6.0 L Phosphorus Level 4.6 Magnesium Level 1.6 L Total Bilirubin 0.4 Direct Bilirubin 0.10 Indirect Bilirubin 0.3 Aspartate Amino Transf (AST/SGOT) 6828 H Alanine Aminotransferase (ALT/SGPT) 5361 H Alkaline Phosphatase 324 H Total Protein 4.4 #L Albumin 2.2 L Medications Medications Current Medications Ondansetron HCl (Zofran Inj) 4 mg Q6H PRN IV NAUSEA AND/OR VOMITING; Start at 15:00 Acetaminophen (Tylenol Tab) 650 mg Q6H PRN PO PAIN LEVEL 1-3 OR FEVER Last administered on 11/10/16t 05:39; Admin Dose 650 MG; Start 11/08/16 at 15:00 Morphine Sulfate (morphine) 2 mg Q4H PRN IV SEVERE PAIN LEVEL 7-10; Start 11/08 at 15:00 Docusate Sodium (Colace) 100 mg Q12H PRN PO CONSTIPATION; Start 11/08/16 at 15: 00 Magnesium Hydroxide (Milk Of Mag) 30 ml DAILY PRN PO CONSTIPATION; Start at 15:00 Sodium Biphosphate/ Sodium Phosphate (Fleet Enema) 133 ml DAILY PRN IN CONSTIPATION; Start 11/08/16 at 15:00 Lorazepam 0.5 mg 0.5 mg Q6H PRN IV ANXIETY; Start 11/08/16 at 15:00 Sodium Chloride (NS) 1,000 ml @ 80 mls/hr [id number] IV Last administered on 11/10 10:43; Admin Dose 80 MLS/HR; Start 11/08/16 at 14:52 Hydralazine HCl (Apresoline) 10 mg Q6H PRN IV ELEVATED BLOOD PRESSURE; Start at 15:00 Nitroglycerin (Nitroglycerin (Sl Tab) 0.4 Mg) 1 tab Q5M PRN SL ANGINA; Start at 15:00 Sodium Chloride 1 gm 1 gm TID PO Last administered on 11/10/16 09:52; Admin Dose 1 GM; Start 11/08/16 at 21:00 Norepinephrine 16 mg/Dextrose 500 ml @ 1.87 mls/hr TITRATE IV Last administered on 11/10/16 01:23; Admin Dose 1.87 MLS/HR; Start 11/08/16 at 20:00 Propofol (Diprivan) 100 ml @ 2.187 mls/ hr Q12H IV Last administered on 09:53; Admin Dose 10.935 MLS/HR; Start 11/08/16 at 21:00 Heparin Sodium (Porcine) 5000 unit 5,000 unit Q12 SC Last administered on 09:53; Admin Dose 5,000 UNIT; Start 11/09/16 at 21:00 Cefepime HCl 50 ml @ 100 mls/hr Q12 IVPB Last administered on 11/10/16 09:52 ; Admin Dose 100 MLS/HR; Start 11/09/16 at 10:30 Vancomycin HCl 250 ml @ 125 mls/hr Q24H IVPB ; Start 11/10/16 at 12:00 Fentanyl (Sublimaze) 100 ml @ 2.5 mls/hr TITRATE IV Last administered on t 17:32; Admin Dose 2.5 MLS/HR; Start 11/09/16 at 16:00 Famotidine (Pepcid Iv) 20 mg BID IV ; Start 11/11/16 at 09:00 CA BURGOS Nov 10, 2016 10:56
--- NOTE | 2016-11-10 11:27 | PN ---
Date/Time of Note Date/Time of Note DATE: 11/10/16 TIME: 11:23 Assessment/Plan VTE Prophylaxis VTE Prophylaxis Intervention: SCD's Lines/Catheters IV Catheter Type (from Nrsg): PICC Line Central line still needed: Yes Urinary Cath still in place: Yes Reason Cath still needed: terminal illness/intractable pain Assessment/Plan Assessment/Plan 41 yo F with widely metastatic breast Ca admitted for septic shock from chest wound. not improving despite aggressively medical therapy. Family has appropriately made pt DNR and plan is for terminal extubation in next 1-3 days. PLAN cont current medical management of broad spectrum abx (though of note, all cultures negative) cont pressor support palliative assisting with family discussions onc notes reviewed plan on terminal extubation as per discussion with family and palliative, tentatively today or tomorrow critical care time: 45 minutes Subjective 24 Hr Interval Summary Free Text/Dictation Notes and labs reviewed, spoke wit pt's family this AM. Exam/Review of Systems Vital Signs Vitals Vital Signs Date Time Temp Pulse Resp B/P Pulse Ox O2 Delivery O2 Flow Rate FiO2 11/10/16 08:00 133 11/10/16 05:11 22 99 40 11/10/16 05:00 53/25 Mechanical Ventilator 11/10/16 04:00 99.5 11/08/16 13:12 3.0 Intake and Output 11/09/16 11/09/16 11/10/16 15:00 23:00 07:00 Intake Total 1045.360 ml 1410.917 ml 1081.854 ml Output Total 95 ml 80 ml 35 ml Balance 950.360 ml 1330.917 ml 1046.854 ml Exam intubated, does not follow commands no mrg abd soft no rashes cool extremities chemP with evidence of transaminitis, WBCs worse Results Result Diagram: 11/10/16 0400 11/10/16 0400 Results 24 hrs Laboratory Tests Test 11/09/16 12:13 11/09/16 18:45 11/10/16 04:00 Lactic Acid Level 3.3 *H 3.4 *H White Blood Count 14.0 #H Red Blood Count 3.14 L Hemoglobin 8.6 L Hematocrit 27.5 L Mean Corpuscular Volume 87.6 Mean Corpuscular Hemoglobin 27.4 L Mean Corpuscular Hemoglobin Concent 31.3 L Red Cell Distribution Width 17.2 H Platelet Count 196 # Mean Platelet Volume 11.1 H Neutrophils % Segmented Neutrophils % (Manual) 69 Band Neutrophils % (Manual) 14 H Lymphocytes % Lymphocytes % (Manual) 5 L Monocytes % Monocytes % (Manual) 11 Eosinophils % Basophils % Metamyelocytes % (manual) 1 H Nucleated Red Blood Cells % 40 H Neutrophils # (Manual) 10 H Band Neutrophils # 1.9 H Absolute Lymphocytes (Manual) 0.7 L Lymphocytes # Monocytes # Absolute Monocytes (Manual) 1.5 H Eosinophils # Basophils # Metamyelocytes # 0.1 H Nucleated Red Blood Cells # Platelet Estimate NORMAL Polychromasia 3+ Poikilocytosis 3+ Anisocytosis 2+ Microcytosis 1+ Sodium Level 120 L Potassium Level 4.0 Chloride Level 87 L Carbon Dioxide Level 18 L Anion Gap 19 H Blood Urea Nitrogen 35 H Creatinine 1.38 H Glucose Level 310 #H Calcium Level 6.0 L Phosphorus Level 4.6 Magnesium Level 1.6 L Total Bilirubin 0.4 Direct Bilirubin 0.10 Indirect Bilirubin 0.3 Aspartate Amino Transf (AST/SGOT) 6828 H Alanine Aminotransferase (ALT/SGPT) 5361 H Alkaline Phosphatase 324 H Total Protein 4.4 #L Albumin 2.2 L Medications Medications Current Medications Ondansetron HCl (Zofran Inj) 4 mg Q6H PRN IV NAUSEA AND/OR VOMITING; Start at 15:00 Acetaminophen (Tylenol Tab) 650 mg Q6H PRN PO PAIN LEVEL 1-3 OR FEVER Last administered on 11/10/16t 05:39; Admin Dose 650 MG; Start 11/08/16 at 15:00 Morphine Sulfate (morphine) 2 mg Q4H PRN IV SEVERE PAIN LEVEL 7-10; Start 11/08 at 15:00 Docusate Sodium (Colace) 100 mg Q12H PRN PO CONSTIPATION; Start 11/08/16 at 15: 00 Magnesium Hydroxide (Milk Of Mag) 30 ml DAILY PRN PO CONSTIPATION; Start at 15:00 Sodium Biphosphate/ Sodium Phosphate (Fleet Enema) 133 ml DAILY PRN [place] CONSTIPATION; Start 11/08/16 at 15:00 Lorazepam 0.5 mg 0.5 mg Q6H PRN IV ANXIETY; Start 11/08/16 at 15:00 Sodium Chloride (NS) 1,000 ml @ 80 mls/hr [id number] IV Last administered on 11/10 10:43; Admin Dose 80 MLS/HR; Start 11/08/16 at 14:52 Hydralazine HCl (Apresoline) 10 mg Q6H PRN IV ELEVATED BLOOD PRESSURE; Start at 15:00 Nitroglycerin (Nitroglycerin (Sl Tab) 0.4 Mg) 1 tab Q5M PRN SL ANGINA; Start at 15:00 Sodium Chloride 1 gm 1 gm TID PO Last administered on 11/10/16 09:52; Admin Dose 1 GM; Start 11/08/16 at 21:00 Norepinephrine 16 mg/Dextrose 500 ml @ 1.87 mls/hr TITRATE IV Last administered on 11/10/16 01:23; Admin Dose 1.87 MLS/HR; Start 11/08/16 at 20:00 Propofol (Diprivan) 100 ml @ 2.187 mls/ hr Q12H IV Last administered on 09:53; Admin Dose 10.935 MLS/HR; Start 11/08/16 at 21:00 Heparin Sodium (Porcine) 5000 unit 5,000 unit Q12 SC Last administered on 09:53; Admin Dose 5,000 UNIT; Start 11/09/16 at 21:00 Cefepime HCl 50 ml @ 100 mls/hr Q12 IVPB Last administered on 11/10/16 09:52 ; Admin Dose 100 MLS/HR; Start 11/09/16 at 10:30 Vancomycin HCl 250 ml @ 125 mls/hr Q24H IVPB ; Start 11/10/16 at 12:00 Fentanyl (Sublimaze) 100 ml @ 2.5 mls/hr TITRATE IV Last administered on 17:32; Admin Dose 2.5 MLS/HR; Start 11/09/16 at 16:00 Famotidine (Pepcid Iv) 20 mg BID IV ; Start 11/11/16 at 09:00 RONAK WILSON MD Nov 10, 2016 11:27
[2016-11-10] MEDS ORDERED: LORAZEPAM 2 MG INJ IV PRN (11:30)
[2016-11-10] MEDS ORDERED: morphine (DRIP) 100 MG/100 ML 100 ML IV SCH (11:30)
--- NOTE | 2016-11-10 11:39 | CONS ---
Date/Time of Note Date/Time of Note DATE: 11/10/16 TIME: 11:37 Assessment/Plan Assessment/Plan Additional Assessment/Plan Family request to dc current care and compasssonate extubation.... Consultation Date/Type/Reason Admit Date/Time Nov 08, 2016 at 15:58 Initial Consult Date 11/09/16 Type of Consultation: palliative care Referring Provider: NAYELY MAR Exam/Review of Systems Vital Signs Vitals Vital Signs Date Time Temp Pulse Resp B/P Pulse Ox O2 Delivery O2 Flow Rate FiO2 11/10/16 08:00 133 11/10/16 08:00 Bag Valve Mask 11/10/16 08:00 40 11/10/16 05:11 22 99 11/10/16 05:00 53/25 11/10/16 04:00 99.5 11/08/16 13:12 3.0 Intake and Output 11/09/16 11/09/16 11/10/16 15:00 23:00 07:00 Intake Total 1045.360 ml 1410.917 ml 1081.854 ml Output Total 95 ml 80 ml 35 ml Balance 950.360 ml 1330.917 ml 1046.854 ml Results Result Diagram: 11/10/16 0400 11/10/16 0400 Results 24 hrs Laboratory Tests Test 11/09/16 12:13 11/09/16 18:45 11/10/16 04:00 Lactic Acid Level 3.3 *H 3.4 *H White Blood Count 14.0 #H Red Blood Count 3.14 L Hemoglobin 8.6 L Hematocrit 27.5 L Mean Corpuscular Volume 87.6 Mean Corpuscular Hemoglobin 27.4 L Mean Corpuscular Hemoglobin Concent 31.3 L Red Cell Distribution Width 17.2 H Platelet Count 196 # Mean Platelet Volume 11.1 H Neutrophils % Segmented Neutrophils % (Manual) 69 Band Neutrophils % (Manual) 14 H Lymphocytes % Lymphocytes % (Manual) 5 L Monocytes % Monocytes % (Manual) 11 Eosinophils % Basophils % Metamyelocytes % (manual) 1 H Nucleated Red Blood Cells % 40 H Neutrophils # (Manual) 10 H Band Neutrophils # 1.9 H Absolute Lymphocytes (Manual) 0.7 L Lymphocytes # Monocytes # Absolute Monocytes (Manual) 1.5 H Eosinophils # Basophils # Metamyelocytes # 0.1 H Nucleated Red Blood Cells # Platelet Estimate NORMAL Polychromasia 3+ Poikilocytosis 3+ Anisocytosis 2+ Microcytosis 1+ Sodium Level 120 L Potassium Level 4.0 Chloride Level 87 L Carbon Dioxide Level 18 L Anion Gap 19 H Blood Urea Nitrogen 35 H Creatinine 1.38 H Glucose Level 310 #H Calcium Level 6.0 L Phosphorus Level 4.6 Magnesium Level 1.6 L Total Bilirubin 0.4 Direct Bilirubin 0.10 Indirect Bilirubin 0.3 Aspartate Amino Transf (AST/SGOT) 6828 H Alanine Aminotransferase (ALT/SGPT) 5361 H Alkaline Phosphatase 324 H Total Protein 4.4 #L Albumin 2.2 L Medications Medications Current Medications Ondansetron HCl (Zofran Inj) 4 mg Q6H PRN IV NAUSEA AND/OR VOMITING; Start at 15:00 Acetaminophen (Tylenol Tab) 650 mg Q6H PRN PO PAIN LEVEL 1-3 OR FEVER Last administered on 11/10/16 05:39; Admin Dose 650 MG; Start 11/08/16 at 15:00 Docusate Sodium (Colace) 100 mg Q12H PRN PO CONSTIPATION; Start 11/08/16 at 15: 00 Magnesium Hydroxide (Milk Of Mag) 30 ml DAILY PRN PO CONSTIPATION; Start at 15:00 Sodium Biphosphate/ Sodium Phosphate 133 ml 133 ml DAILY PRN [place] CONSTIPATION; Start 11/08/16 at 15:00 Sodium Chloride (NS) 1,000 ml @ 80 mls/hr [id number] IV Last administered on 11/10 10:43; Admin Dose 80 MLS/HR; Start 11/08/16 at 14:52 Hydralazine HCl (Apresoline) 10 mg Q6H PRN IV ELEVATED BLOOD PRESSURE; Start at 15:00 Nitroglycerin (Nitroglycerin (Sl Tab) 0.4 Mg) 1 tab Q5M PRN SL ANGINA; Start at 15:00 Sodium Chloride 1 gm 1 gm TID PO Last administered on 11/10/16 09:52; Admin Dose 1 GM; Start 11/08/16 at 21:00 Norepinephrine 16 mg/Dextrose 500 ml @ 1.87 mls/hr TITRATE IV Last administered on 11/10/16 01:23; Admin Dose 1.87 MLS/HR; Start 11/08/16 at 20:00 Propofol (Diprivan) 100 ml @ 2.187 mls/ hr Q12H IV Last administered on 09:53; Admin Dose 10.935 MLS/HR; Start 11/08/16 at 21:00 Heparin Sodium (Porcine) 5000 unit 5,000 unit Q12 SC Last administered on 09:53; Admin Dose 5,000 UNIT; Start 11/09/16 at 21:00 Cefepime HCl 50 ml @ 100 mls/hr Q12 IVPB Last administered on 11/10/16 09:52 ; Admin Dose 100 MLS/HR; Start 11/09/16 at 10:30 Vancomycin HCl (Vancocin) 250 ml @ 125 mls/hr Q24H IVPB ; Start 11/10/16 at 12: 00 Famotidine 20 mg 20 mg BID IV ; Start 11/11/16 at 09:00 Morphine Sulfate/ Sodium Chloride (morphine) 100 ml @ 1 mls/hr TITRATE IV ; Start 11/10/16 at 11:30 Lorazepam (Ativan) 2 mg Q1H PRN IV SEDATION; Start 11/10/16 at 11:30 KATERYNA MATIAS Nov 10, 2016 11:38
[2016-11-10] MEDS ORDERED: VANCOMYCIN 1 GM in NS 250 ML IVPB SCH (12:00)
--- NOTE | 2016-11-10 12:34 | DES ---
Date/Time of Note Date/Time of Note DATE: 11/10/16 TIME: 12:34 Discharge/ Summary Admission/Discharge Info Admit Date/Time Nov 08, 2016 at 15:58 Discharge Date/Time Final Diagnosis respiratory failure from septic shock Preliminary Cause of respiratory failure from septic shock Hx of Present Illness 41-year-old female past medical history of metastatic breast carcinoma with metastases to the lungs, asthma, who presents to the emergency room for evaluation of shortness of breath. The patient states that her shortness of breath is gone progressively worse over the past 3 days. Patient is presently on chemotherapy and her last chemotherapy was October 17. The patient states her next chemotherapy is scheduled for November 17. She states her shortness of breath is worse with lying flat and nothing is improved. She does have a home nebulizer machine however does not help with her shortness of breath. She does state that she has noticed some swelling in her lower extremities as well. When she came into the emergency room today she had sodium levels of 119, and lactic acid 2.8. She was placed on BiPAP and is still presently on that right now. No upper or lower GI bleeding, nausea vomiting, diarrhea or constipation. Hospital Course 41 yo F with widely metastatic breast Ca admitted for septic shock from chest wound. Pt's clinical status did not improve despite aggressively medical therapy. Oncology and palliative teams consulted. Pt made DNR then extubated on 11.10 afternoon events: I was contacted by the nurse at 1225pm that pt had been extubated and appeared to be in asystole on the monitor. I came to patient's bedside On exam the patient did not respond to verbal or physical stimuli. No heart or breath sounds auscultated. No peripheral pulses. Pupils fixed. Patient pronounced at 1230pm. Nurse and family at bedside at time of pronouncement. Pending Labs/Cultures Laboratory Tests Test 11/09/16 18:45 11/10/16 04:00 Lactic Acid Level 3.4mmol/L (0.5-2.0) White Blood Count 14.010^3/ul (4.8-10.8) Red Blood Count 3.1410^6/ul (4.20-5.40) Hemoglobin 8.6g/dl (12.0-16.0) Hematocrit 27.5% (37.0-47.0) Mean Corpuscular Volume 87.6fl (82.0-101.0) Mean Corpuscular Hemoglobin 27.4pg (29.0-33.0) Mean Corpuscular Hemoglobin Concent 31.3g/dl (32.0-37.0) Red Cell Distribution Width 17.2% (11.5-14.5) Platelet Count 24080^3/UL (140-415) Mean Platelet Volume 11.1fl (7.4-10.4) Neutrophils % % (39.0-77.0) Segmented Neutrophils % (Manual) 69% (39-77) Band Neutrophils % (Manual) 14% (0-4) Lymphocytes % % (15.0-51.0) Lymphocytes % (Manual) 5% (15-51) Monocytes % % (0.0-11.0) Monocytes % (Manual) 11% (0-11) Eosinophils % % (0.0-7.0) Basophils % % (0.0-2.0) Metamyelocytes % (manual) 1% (0-0) Nucleated Red Blood Cells % 40% (0-0) Neutrophils # (Manual) 1010^3/ul (1.7-7.5) Band Neutrophils # 1.910^3/ul (0.0-0.6) Absolute Lymphocytes (Manual) 0.710^3/ul (0.8-2.9) Lymphocytes # 10^3/ul (0.8-2.9) Monocytes # 10^3/ul (0.3-0.9) Absolute Monocytes (Manual) 1.510^3/ul (0.3-0.9) Eosinophils # 10^3/ul (0.0-0.5) Basophils # 10^3/ul (0.0-0.1) Metamyelocytes # 0.110^3/ul (0.0-0.0) Nucleated Red Blood Cells # 10^3/ul (0.0-0.0) Platelet Estimate NORMAL Polychromasia 3+ (0-0) Poikilocytosis 3+ (0-0) Anisocytosis 2+ (0-0) Microcytosis 1+ (0-0) Sodium Level 120mmol/L (135-144) Potassium Level 4.0mmol/L (3.5-5.1) Chloride Level 87mmol/L (97-110) Carbon Dioxide Level 18mmol/L (21-31) Anion Gap 19 (8-16) Blood Urea Nitrogen 35mg/dl (7-20) Creatinine 1.38mg/dl (0.44-1.00) Glucose Level 310mg/dl (70-220) Calcium Level 6.0mg/dl (8.4-10.2) Phosphorus Level 4.6mg/dl (2.5-4.9) Magnesium Level 1.6mg/dl (1.7-2.5) Total Bilirubin 0.4mg/dl (0.2-1.3) Direct Bilirubin 0.10mg/dl (0.00-0.20) Indirect Bilirubin 0.3mg/dl (0-1.1) Aspartate Amino Transf (AST/SGOT) 6828IU/L (15-46) Alanine Aminotransferase (ALT/SGPT) 5361IU/L (13-69) Alkaline Phosphatase 324IU/L (42-121) Total Protein 4.4g/dl (6.1-8.1) Albumin 2.2g/dl (3.3-4.9) RONAK WILSON MD Nov 10, 2016 12:34
[2016-11-11] MEDS ORDERED: FAMOTIDINE 20 MG INJ IV SCH (09:00)
== END 2016-11-10 12:30 | disposition expired | DRG 862 ==
LOC: E/R 12:10 → ICU 15:58
PROVIDERS: ADMIT Hospitalist; ATTEND Hospitalist
PROC: 5A1945Z Respiratory Ventilation, 24-96 Consecutive Hours (ICD-10-PCS; principal; 2016-11-08)
PROC: 0BH17EZ Insertion of Endotracheal Airway into Trachea, Via Natural or Artificial Opening (ICD-10-PCS; 2016-11-08)
DX: T81.4XXA Infection following a procedure, initial encounter (principal); A41.9 Sepsis, unspecified organism; N17.0 Acute kidney failure with tubular necrosis; R65.21 Severe sepsis with septic shock; K72.00 Acute and subacute hepatic failure without coma; J96.00 Acute respiratory failure, unspecified whether with hypoxia or hypercapnia; C78.00 Secondary malignant neoplasm of unspecified lung; C50.919 Malignant neoplasm of unspecified site of unspecified female breast; D64.9 Anemia, unspecified; J81.1 Chronic pulmonary edema; E87.1 Hypo-osmolality and hyponatremia; Z17.0 Estrogen receptor positive status [ER+]; R06.02 Shortness of breath; Z90.12 Acquired absence of left breast and nipple; Z85.3 Personal history of malignant neoplasm of breast; Y83.9 Surgical procedure, unspecified as the cause of abnormal reaction of the patient, or of later complication, without mention of misadventure at the time of the procedure; Z66 Do not resuscitate; Z92.3 Personal history of irradiation; Z79.899 Other long term (current) drug therapy; I10 Essential (primary) hypertension; I46.9 Cardiac arrest, cause unspecified
CPT/HCPCS: 36415; 36600; 71010; 80048; 80053; 80061; 80076; 81003; 82803; 83036; 83605; 83735; 83880; 84100; 84439; 84443; 84484; 85025; 85610; 85730; 87040; 87070; 87081; 87086; 93005; 94002; 94003; 94644; 94660; 94770; 96365; 96375; C9113; J0610; J0692; J1644; J1940; J1956; J2060; J2270; J2997; J3010; J3370; J7030; J7050; J7060